=== PATIENT | female | born 1960 | race Caucasian/White ===

== ENCOUNTER → 2017-10-23 16:20 | Outpatient (CLI) | payer OTHER, SELFPAY ==
--- NOTE | 2017-10-23 16:34 | BI_ITS ---
MAMMOGRAPHY - BILATERAL SCREENING 3-D VIELKA SYNTHESIS REASON FOR EXAM: Female, 57 years old. Bilateral Screening 3-D tomosynthesis PERTINENT HISTORY: Hormone replacement therapy.. TECHNIQUE: 2-D mammograms and 3-D Vielka synthesis of the breast (s) were performed. CAD was performed. COMPARISON: August 13, 2015, May 17, 2013 FINDINGS: The breast composition is almost entirely fat. Scattered benign calcifications are seen. No dense spiculated masses or suspicious microcalcifications are identified. No architectural distortion is identified. There is no skin thickening or retraction. There has been no significant change since the prior study. BI/SCREENING MAMM (CAD), BILAT IMPRESSION: No mammographic signs of malignancy. Routine yearly mammograms recommended. ASSESSMENT CATEGORY: BIRADS Category 1: Negative. A letter regarding these results will be sent to the patient by the facility within 30 days. FOLLOW UP RECOMMENDATION: Yearly follow up mammogram recommended. (A) Approximately 10% of breast cancers are not detected by mammography. A normal mammogram should not delay biopsy of a clinically suspicious abnormality. Electronically Signed: Adelso Lopez MD at 13:38 EDT , Service support ,
== END ==
PROVIDERS: Family Provider Family Medicine; PCP Family Medicine; Visit Provider Obstetrics & Gynecology
DX: Z12.31 Encounter for screening mammogram for malignant neoplasm of breast (principal)
CPT/HCPCS: 77063; 77067

== ENCOUNTER → 2017-12-28 10:52 | Outpatient (CLI) | payer OTHER, SELFPAY ==
[2017-12-28 13:21] LABS: Estradiol 19.8 pg/mL
[2018-01-05 08:06] LABS: HPV Reflexed? NOT INDICATED
== END ==
PROVIDERS: Visit Provider Obstetrics & Gynecology
DX: Z78.0 Asymptomatic menopausal state (principal); Z12.4 Encounter for screening for malignant neoplasm of cervix
CPT/HCPCS: 36415; 82670; 88175; G0145

== ENCOUNTER → 2018-10-25 | Outpatient (CLI) | payer OTHER, SELFPAY ==
--- NOTE | 2018-10-25 15:30 | BI_ITS ---
MAMMOGRAPHY - BILATERAL SCREENING REASON FOR EXAM: Female, 58 years old. Routine annual screening examination. PERTINENT HISTORY: Non-contributory. TECHNIQUE: Digital bilateral breast vielka (3D mammographic acquisition) in the CC and MLO projections. 2-D mediolateral oblique (MLO) and craniocaudad (CC) views of both breasts were obtained. CAD: Full Field Digital Mammography with Computer Added Detection was performed. COMPARISON: Comparison is made with prior study dated October 23, 2017 and September 14, 2016. FINDINGS: Breast Composition: The breasts are almost entirely fatty. There are no dominant masses or suspicious calcifications. No other significant abnormalities are identified. There has been no significant change since the prior study. BI/SCREEN MAMM (CAD) W/VIELKA BILAT IMPRESSION: Stable bilateral screening mammogram. Yearly follow-up mammogram recommended. (A) ASSESSMENT CATEGORY: BIRADS Category 1: Negative. A letter regarding these results will be sent to the patient by the facility within 30 days. Approximately 10% of breast cancers are not detected by mammography. A normal mammogram should not delay biopsy of a clinically suspicious abnormality. [id number] Electronically Signed: Kurtis Ruff, at 9:04 EDT , Service support ,
== END | disposition home or self-care (01) ==
PROVIDERS: Family Provider Family Medicine; PCP Family Medicine; Referring Provider Obstetrics & Gynecology; Visit Provider Obstetrics & Gynecology
DX: Z12.31 Encounter for screening mammogram for malignant neoplasm of breast (principal)
CPT/HCPCS: 77063; 77067

== ENCOUNTER → 2018-12-31 06:29 | Outpatient (CLI) | payer OTHER, SELFPAY ==
[2018-12-31 07:44] LABS: AST(SGOT) 43 U/L (15-37); Alanine Aminotransfer ALT/SGPT 44 U/L (13-56); Albumin, Serum 3.6 g/dL (3.2-5.0); Alkaline Phosphatase 97 U/L (45-117); Bilirubin, Direct < 0.05 mg/dL (0.00-0.30); Cholesterol 284 mg/dL (200); Globulin 3.7 g/dL (2.2-4.2); High Density Lipoprotein 39 mg/dL; Protein, Total 7.3 g/dL (6.4-8.2); Triglycerides 774 mg/dL
== END ==
PROVIDERS: Family Provider Family Medicine; PCP Family Medicine; Referring Provider Family Medicine; Visit Provider Family Medicine
DX: E78.5 Hyperlipidemia, unspecified (principal); R74.8 Abnormal levels of other serum enzymes
CPT/HCPCS: 36415; 80061; 80076

== ENCOUNTER → 2019-01-10 07:54 | Outpatient (CLI) | payer OTHER, SELFPAY ==
[2019-01-10 09:56] LABS: Cholesterol 281 mg/dL (200); High Density Lipoprotein 64 mg/dL; Triglycerides 159 mg/dL; Very Low Density Lipoprotein 32 mg/dL (5-40)
== END ==
PROVIDERS: Family Provider Family Medicine; PCP Family Medicine; Referring Provider Family Medicine; Visit Provider Family Medicine
DX: E78.5 Hyperlipidemia, unspecified (principal)
CPT/HCPCS: 36415; 80061

== ENCOUNTER → 2019-11-22 08:17 | Outpatient (CLI) | payer SELFPAY ==
[2019-04-18 08:45] VITALS: BMI 26.6
[2019-11-22 10:44] LABS: Cholesterol 218 mg/dL (200); High Density Lipoprotein 57 mg/dL; Triglycerides 199 mg/dL; Very Low Density Lipoprotein 40 mg/dL (5-40)
== END ==
PROVIDERS: PCP Family Medicine; Referring Provider Family Medicine; Visit Provider Family Medicine
DX: E78.5 Hyperlipidemia, unspecified (principal)
CPT/HCPCS: 36415; 80061

== ENCOUNTER → 2020-05-07 07:12 | Outpatient (CLI) | payer SELFPAY ==
[2019-04-18 08:45] VITALS: BMI 26.6
[2020-05-07 10:56] LABS: ALB/GLOB Ratio 1.2 RATIO (0.9-2.4); AST(SGOT) 34 U/L (15-37); Alanine Aminotransfer ALT/SGPT 71 U/L (13-56); Albumin, Serum 4.1 g/dL (3.2-5.0); Alkaline Phosphatase 105 U/L (45-117); Anion Gap 6 (5-15); BUN 11 mg/dL (7-18); BUN/Creat Ratio 14.9 RATIO (10-20); Chloride 107 mmol/L (98-107); Cholesterol 190 mg/dL (200); Creatinine, Serum 0.74 mg/dL (0.55-1.02); EST Glomerular Filtration Rate 86 mL/min (>60); Est Glom Filt Rate - Afr Amer 104 mL/min (>60); Globulin 3.3 g/dL (2.2-4.2); Glucose 93 mg/dL (74-106); High Density Lipoprotein 59 mg/dL; Protein, Total 7.4 g/dL (6.4-8.2); Sodium Level 142 mmol/L (136-145); Triglycerides 167 mg/dL; Very Low Density Lipoprotein 33 mg/dL (5-40)
== END ==
PROVIDERS: PCP Family Medicine; Referring Provider Family Medicine; Visit Provider Family Medicine
DX: I10 Essential (primary) hypertension (principal)
CPT/HCPCS: 36415; 80053; 80061

== ENCOUNTER → 2020-08-12 06:58 | Outpatient (CLI) | payer SELFPAY ==
[2019-04-18 08:45] VITALS: BMI 26.6
--- NOTE | 2020-08-12 07:02 | BI_ITS ---
MAMMOGRAPHY - BILATERAL SCREENING REASON FOR EXAM: Female, 60 years old. Routine annual screening examination. PERTINENT HISTORY: Non-contributory. TECHNIQUE: Digital bilateral breast vielka (3D mammographic acquisition) in the CC and MLO projections. 2-D mediolateral oblique (MLO) and craniocaudad (CC) views of both breasts were obtained. CAD: Full Field Digital Mammography with Computer Added Detection was performed. COMPARISON: Comparison is made with prior examination dated 10/25/2018 and 10/23/2017. FINDINGS: Breast Composition: The breasts are almost entirely fatty. There are no dominant masses or suspicious calcifications. No other significant abnormalities are identified. There has been no significant change since the prior study. BI/SCRN MAMM (CAD)W/VIELKA BILAT IMPRESSION: Stable bilateral screening mammogram. Yearly follow-up mammogram recommended. (A) ASSESSMENT CATEGORY: BIRADS Category 1: Negative. A letter regarding these results will be sent to the patient by the facility within 30 days. Approximately 10% of breast cancers are not detected by mammography. A normal mammogram should not delay biopsy of a clinically suspicious abnormality. [id number] Electronically Signed: Kurtis Ruff MD at 8:30 EDT , Service support ,
== END ==
PROVIDERS: PCP Family Medicine; Referring Provider Obstetrics & Gynecology; Visit Provider Obstetrics & Gynecology
DX: Z12.31 Encounter for screening mammogram for malignant neoplasm of breast (principal)
CPT/HCPCS: 77063; 77067

== ENCOUNTER → 2021-08-17 | Outpatient (CLI) | payer SELFPAY ==
--- NOTE | 2021-08-17 08:09 | BI_ITS ---
MAMMOGRAPHY - BILATERAL SCREENING REASON FOR EXAM: Female, 61 years old. Routine annual screening examination. PERTINENT HISTORY: Non-contributory. TECHNIQUE: Digital bilateral breast vielka (3D mammographic acquisition) in the CC and MLO projections. 2-D mediolateral oblique (MLO) and craniocaudad (CC) views of both breasts were obtained. CAD: Full Field Digital Mammography with Computer Added Detection was performed. COMPARISON: Comparison is made with prior study 08/12/2020 and 10/25/2018. FINDINGS: Breast Composition: The breasts are almost entirely fatty. There are no dominant masses or suspicious calcifications. No other significant abnormalities are identified. There has been no significant change since the prior study. BI/SCRN MAMM (CAD)W/VIELKA BILAT IMPRESSION: Stable bilateral screening mammogram. Yearly follow-up mammogram recommended. (A) ASSESSMENT CATEGORY: BIRADS Category 1: Negative. A letter regarding these results will be sent to the patient by the facility within 30 days. Approximately 10% of breast cancers are not detected by mammography. A normal mammogram should not delay biopsy of a clinically suspicious abnormality. [id number] Electronically Signed: Kurtis Ruff MD at 9:13 EDT ,
== END | disposition home or self-care (01) ==
LOC: OPBI 08:05
PROVIDERS: PCP Family Medicine; Visit Provider Nurse Practitioner Women's Health
DX: Z12.31 Encounter for screening mammogram for malignant neoplasm of breast (principal)
CPT/HCPCS: 77063; 77067

== ENCOUNTER → 2022-06-16 | Outpatient (CLI) | payer SELFPAY ==
[2022-06-16 10:14] LABS: Absolute Lymphocyte Count 2.59 X10^3/uL (0.83-4.51); Absolute Neutrophil Count 3.2 X10^3/uL (2.0-7.7); Basophil# 0.06 X10^3/uL; Basophil% 0.9 % (0-1); Eosinophil# 0.23 X10^3/uL; Eosinophils% 3.5 % (0-5); Hemoglobin 15.1 g/dL (12.0-15.0); Lymphocyte # 2.59 X10^3/ul (0.83-4.51); Lymphocyte % 39.8 % (19-41); Mean Corp Hgb Conc 32.8 g/dL (32-36); Mean Corpuscular Hgb 28.7 pg (27.0-32.0); Mean Corpuscular Volume 87.5 fL (81-99); Mean Platelet Vol. 10.9 fl (6.2-12.0); Monocyte# 0.43 X10^3/uL; Monocyte% 6.6 % (0-10); NRBC Flagged by Analyzer 0 % (0-5); Neutrophil # 3.18 X10^3/uL (2.7-7.7); Platelet Count 270 K/mm3 (150-450); RBC Distribution Width CV 12.3 % (11.6-14.6); RBC Distribution Width SD 39.9 fl (35.1-43.9); Red Blood Count 5.26 M/mm3 (4.2-5.4); White Blood Count 6.5 K/mm3 (4.4-11.0)
[2022-06-16 10:34] LABS: Microalbumin,Random Urine 29.2 mg/L (NO RANGE EST.)
[2022-06-16 10:39] LABS: ALB/GLOB Ratio 1.1 RATIO (0.9-2.4); AST(SGOT) 37 U/L (15-37); Alanine Aminotransfer ALT/SGPT 86 U/L (13-56); Albumin, Serum 3.9 g/dL (3.2-5.0); Alkaline Phosphatase 109 U/L (45-117); Anion Gap 6 (5-15); BUN 12 mg/dL (7-18); Calcium,Total 9.3 mg/dL (8.5-10.1); Chloride 105 mmol/L (98-107); Cholesterol 172 mg/dL (200); EST Glomerular Filtration Rate 90 mL/min (>60); Est Glom Filt Rate - Afr Amer 109 mL/min (>60); Globulin 3.7 g/dL (2.2-4.2); Glucose 99 mg/dL (74-106); High Density Lipoprotein 58 mg/dL; Potassium 3.8 mmol/L (3.5-5.1); Protein, Total 7.6 g/dL (6.4-8.2); Sodium Level 141 mmol/L (136-145); Triglycerides 137 mg/dL; Very Low Density Lipoprotein 27 mg/dL (5-40)
== END | disposition home or self-care (01) ==
PROVIDERS: PCP Family Medicine; Referring Provider Family Medicine; Visit Provider Family Medicine
DX: I10 Essential (primary) hypertension (principal); E78.5 Hyperlipidemia, unspecified
CPT/HCPCS: 36415; 80053; 80061; 82043; 85025

== ENCOUNTER → 2022-08-22 | Outpatient (CLI) | payer SELFPAY ==
--- NOTE | 2022-08-22 07:40 | BI_ITS ---
MAMMOGRAPHY - BILATERAL SCREENING REASON FOR EXAM: Female, 62 years old. Routine annual screening examination. PERTINENT HISTORY: Non-contributory. TECHNIQUE: Digital bilateral breast vielka (3D mammographic acquisition) in the CC and MLO projections. 2-D mediolateral oblique (MLO) and craniocaudad (CC) views of both breasts were obtained. CAD: Full Field Digital Mammography with Computer Added Detection was performed. COMPARISON: Comparison is made with prior study dated August 17, 2021 and August 12, 2020. FINDINGS: Breast Composition: The breasts are almost entirely fatty. There are no dominant masses or suspicious calcifications. No other significant abnormalities are identified. There has been no significant change since the prior study. BI/SCRN MAMM (CAD)W/VIELKA BILAT IMPRESSION: Stable bilateral screening mammogram. Yearly follow-up mammogram recommended. (A) ASSESSMENT CATEGORY: BIRADS Category 1: Negative. A letter regarding these results will be sent to the patient by the facility within 30 days. Approximately 10% of breast cancers are not detected by mammography. A normal mammogram should not delay biopsy of a clinically suspicious abnormality. [id number] Electronically Signed: Kurtis Ruff MD at 9:35 EDT ,
== END | disposition home or self-care (01) ==
LOC: OPBI 07:34
PROVIDERS: PCP Family Medicine; Referring Provider Nurse Practitioner Women's Health; Visit Provider Nurse Practitioner Women's Health
DX: Z12.31 Encounter for screening mammogram for malignant neoplasm of breast (principal)
CPT/HCPCS: 77063; 77067

== ENCOUNTER → 2023-09-12 | Outpatient (CLI) | payer SELFPAY ==
--- NOTE | 2023-09-12 07:29 | BI_ITS ---
MAMMOGRAPHY - BILATERAL SCREENING REASON FOR EXAM: Female, 63 years old. Routine annual screening examination. PERTINENT HISTORY: Non-contributory. TECHNIQUE: Digital bilateral breast vielka (3D mammographic acquisition) in the CC and MLO projections. 2-D mediolateral oblique (MLO) and craniocaudad (CC) views of both breasts were obtained. CAD: Full Field Digital Mammography with Computer Added Detection was performed. COMPARISON: Comparison is made with prior study dated August 22, 2022 and August 17, 2021. FINDINGS: Breast Composition: The breasts are almost entirely fatty. There are no dominant masses or suspicious calcifications. No other significant abnormalities are identified. There has been no significant change since the prior study. BI/SCRN MAMM (CAD)W/VIELKA BILAT IMPRESSION: Stable bilateral screening mammogram. Yearly follow-up mammogram recommended. (A) ASSESSMENT CATEGORY: BIRADS Category 1: Negative. A letter regarding these results will be sent to the patient by the facility within 30 days. Approximately 10% of breast cancers are not detected by mammography. A normal mammogram should not delay biopsy of a clinically suspicious abnormality. [id number] Electronically Signed: Kurtis Ruff MD at 8:25 EDT ,
== END | disposition home or self-care (01) ==
LOC: OPBI 07:26
PROVIDERS: PCP Nurse Practitioner Women's Health; Referring Provider Nurse Practitioner Women's Health; Visit Provider Nurse Practitioner Women's Health
DX: Z12.31 Encounter for screening mammogram for malignant neoplasm of breast (principal)
CPT/HCPCS: 77063; 77067

== ENCOUNTER 2024-06-05 09:36 | Day surgery (SDC) | payer SELFPAY ==
[2024-06-05] VITALS (7 sets, daily range): BP systolic 95–135; BP diastolic 59–80; PULSE 66–97; RESP 16–20; TEMP 36.1–37.1; O2SAT 93–98; BMI 29.0
--- NOTE | 2024-06-05 10:07 | CON.PCM.GI_ITS ---
HPI Consult Data Date of Consult: 06/05/24 HPI Narrative Reason for Consultation: Screening colonoscopy HPI Narrative: FLORENCIO REZA, is a 64 F who presents for screening colonoscopy. She had a colonoscopy back in 2018 that a small benign polyp that was removed. She has not a problem with her bowels. She denies any chest pain or shortness of breath. Overall she is in very good health. FOR[facility]LY [facility], LATER [facility] Medical History Wears contact lenses Cancer High cholesterol Gastric reflux Non-smoker PONV (postoperative nausea and vomiting) Family history of rectal cancer Hx of colonic polyp Ovarian cyst, bilateral Hypertension Hyperlipidemia Home Medications ?Medication ?Instructions ?Recorded ?Last Taken ?Type lisinopril 20 mg tablet 20 mg PO BID 03/21/17 History amlodipine 5 mg tablet 10 mg PO DAILY 04/18/19 Unkn own History ascorbic acid (vitamin C) 500 mg 500 mg PO DAILY 08/22 Unknown History capsule coenzyme Q10 75 mg capsule (Ultra 75 mg PO DAILY 08/22 Unknown History CoQ10) mecobalamin (vitamin B12) 1,000 1,000 mcg PO QDAY 03/20 09/11 Unknown History mcg chewable tablet Allergy/AdvReac Type Severity Reaction Status Date / Time Opioids - Morphine Analogues AdvReac Vomiting Verified 06/04/24 10:42 (narcotics) Family History Mother Hypertension Hyperlipidemia Rectal cancer Father Hypertension Hyperlipidemia Surgical History Hx of colonoscopy S/P cholecystectomy S/P bilateral oophorectomy S/P abdominal hysterectomy S/P partial glossectomy S/P laparoscopy Social History household members: spouse current occupational status: retired Smoking Status: Never smoker alcohol intake: never substance use type: does not use caffeine: Yes what type of physical activity do you participate in: walking frequency: 5-6 times per week seatbelt use: always do you feel safe at home: Yes additional social history: - 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 ROS Constitutional Constitutional: Denies fatigue, fever(s), poor appetite, weight gain or weight loss Gastrointestinal Gastrointestinal: Denies belching, bloating, change in bowel habits, change in stool character, chewing difficulty, coffee ground emesis, constipation, cramping, diarrhea, dyspepsia, dysphagia, early satiety, excessive flatus, fecal incontinence, heartburn, hematemesis, hematochezia, hemorrhoids, loose stools, melena, nausea, odynophagia, rectal bleeding, tenesmus, vomiting or weight changes Physical Exam Const alert, oriented x3, no apparent distress and healthy appearing General Appearance: cooperative GI normal to inspection, nondistended, normoactive bowel sounds, soft to palpation, non-tender and non-distended Percussion: normal to percussion Rectal Exam: deferred Assessment & Plan Assessment/Plan (1) Encounter for screening for malignant neoplasm of colon: PLAN: She was explained alternatives, risk, benefits including not withstanding bleeding, infection, sepsis, perforation, need emergent surgery and . She will be ASA of 3.
--- NOTE | 2024-06-05 10:31 | PRE.ANES_ITS ---
ASA Classification* ASA Classification ASA Classification: 2 Assessment & Plan Anesthesia* Anesthesia Assessment Anesthesia Assessment: Discussed sedation and/or anesthesia options, risks, benefits, and alternatives with patient/parents/legal guardian/POA. Questions invited. The patient/parents/legal guardian/POA seems to understand and agrees to proceed with anesthesia plan. Reviewed the physical assessment, medical history, allergy history and patient home medications list prior to surgery/procedure/anesthetic and documented any changes. Performed airway and anesthesia risk assessments. Anesthesia Type Anesthesia Type: MAC History Source History Obtained from:: Patient and Chart Anesthesia Focused Assessment* Temperature: 98.7 F Pulse Rate: 97 Blood Pressure: 135/80 Respiratory Rate: 17 Pulse Ox: 98 Oxygen Delivery Method: Room Air Airway Assessment Mouth opens: >3 cm Mallampati Score: I Teeth Condition: Caps/Crowns (Patient has couple caps. They are tight.) Neck Range of motion (ROM): Full ROM Focused Labs Anesthesia Preop lab: CBC WBC 6.5 K/mm3 (4.4-11.0) 06/16/22 09:08 06/16/22 RBC 5.26 M/mm3 (4.2-5.4) 06/16/22 09:08 06/16/22 Hgb 15.1 g/dL (12.0-15.0) H 06/16/22 09:08 3 Hct 46.0 % (37-47) 06/16/22 09:08 06/16/22 Plt Count 270 K/mm3 (150-450) 06/16/22 09:08 06/16/22 CHEMISTRY Potassium 3.8 mmol/L (3.5-5.1) 06/16/22 09:08 06/16/22 Sodium 141 mmol/L (136-145) 06/16/22 09:08 06/16/22 Phosphorus 2.8 mg/dL (2.5-4.9) 10/02/18 06:14 10/02/18 BUN 12 mg/dL (7-18) 06/16/22 09:08 06/16/22 Creatinine 0.70 mg/dL (0.55-1.02) 06/16/22 09:08 06/16/22 Glucose 99 mg/dL (74-106) 06/16/22 09:08 06/16/22 COAG Pre-Assessment Diagnosis/Proposed Procedure Planned Operative Procedure(s): CSCOPE Anesthesia History 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 When Was Last Pacemaker Check QUESTION #4 FULL TEXT: You/Your Family Experience fever (hyperthermia) with Anesthesia Last Oral Intake Last Oral intake: Last Oral Intake NPO since 06:00 06/05/24 10:17 Meds taken in AM with sips of Yes 06/05/24 10:17 water? Meds patient instructed to take am of surgery Any additional information?: Yes NPO since: 07:00 (Patient has several water with a.m. meds) Meds taken in AM with sips of water?: Yes PONV PONV - composite technician: PONV - composite technician Female Yes 06/04/24 10:43 HX of Motion Sickness Yes 06/04/24 10:43 HX of N/V After Surgery Yes 06/04/24 10:43 Non-Smoker Yes 06/04/24 10:43 Duration of Surgery greater No 06/04/24 10:43 than 60 minutes Number of Risk Factors 4 06/04/24 10:43 PONV Score Severe Risk 06/04/24 10:43 Height & Weight Height & Weight: Anesthesia: Height & Weight Height 5 ft 5 in 06/05/24 10:17 Weight: 79 kg 06/05/24 10:17 Body Mass Index (BMI) 29.0 06/05/24 10:17 Respiratory Assessment Respiratory Assessment - composite technician: Respiratory Tract Infection Hx - composite technician Hx Respiratory Tract Infection No 06/04/24 10:43 STOP Sleep Apnea STOP Sleep Apnea - composite technician: STOP Sleep Apnea - composite technician Hx Hypertension Yes: CONTROLLED WITH MED 06/04/24 10:43 Hx Sleep Apnea No 06/04/24 10:43 CPAP BIPAP Do you snore loudly (louder No 06/04/24 10:43 than talking or can be heard Do you often feel tired/ No 06/04/24 10:43 fatigued/ sleepy during daytime? Has anyone observed you stop No 06/04/24 10:43 breathing during sleep? STOP Results Negative 06/04/24 10:43 QUESTION #5 FULL TEXT : Do you snore loudly (louder than talking or can be heard through closed doors)? 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 Specify any problems Hx of Preganancy in last 3 N/A 06/04/24 10:43 Months Nurse Filling Out Transfusion NBUCHER 06/04/24 10:43 & Questions: Date: 06/04/24 06/04/24 10:43 Time: 10:45 06/04/24 10:43 Patient unable to answer at this time (ie. confused, unrespo /Reproduction History /Reproductive History - composite technician: /Reproductive Hx- composite technician Hx Now No 06/04/24 10:43 Gestational Age (in weeks): EDC: Hx Hx Para Hx Section SAB No 06/04/24 10:43 PFSH Medical History Wears contact lenses Cancer High cholesterol Gastric reflux Non-smoker PONV (postoperative nausea and vomiting) Family history of rectal cancer Hx of colonic polyp Ovarian cyst, bilateral Hypertension Hyperlipidemia Home Medications ?Medication ?Instructions ?Recorded ?Last Taken ?Type lisinopril 20 mg tablet 20 mg PO BID 03/21/17 History amlodipine 5 mg tablet 10 mg PO DAILY 04/18/1905/18 History ascorbic acid (vitamin C) 500 mg 500 mg PO DAILY 08/2206/04/24 History capsule coenzyme Q10 75 mg capsule (Ultra 75 mg PO DAILY 08/2206/04/24 History CoQ10) mecobalamin (vitamin B12) 1,000 1,000 mcg PO QDAY 03/2006/04/24 History mcg chewable tablet Allergy/AdvReac Type Severity Reaction Status Date / Time Opioids - Morphine Analogues AdvReac Vomiting Verified 06/05/24 10:16 (narcotics) Family History Mother Hypertension Hyperlipidemia Rectal cancer Father Hypertension Hyperlipidemia Surgical History Hx of colonoscopy S/P cholecystectomy S/P bilateral oophorectomy S/P abdominal hysterectomy S/P partial glossectomy S/P laparoscopy Social History household members: spouse current occupational status: retired Smoking Status: Never smoker alcohol intake: never substance use type: does not use caffeine: Yes what type of physical activity do you participate in: walking frequency: 5-6 times per week seatbelt use: always do you feel safe at home: Yes additional social history: - 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
--- NOTE | 2024-06-05 10:39 | PCM.POST.ANE ---
Anesthesia: Postop Eval I Current Vital Signs Temperature: 97.1 F Pulse Rate: 66 Blood Pressure: 95/59 Respiratory Rate: 20 Pulse Ox: 95 Oxygen Delivery Method: Room Air Assessment Airway patent: Yes Spontaneous unlabored respirations: Yes Mental status: Asleep nausea: No Vomiting: No Anesthesia Complication: No Fluid Hydration Crystalloid volume administer (ml): 30 Total IV fluid infused: 30 Progress Note Anesthesia document: Postop Eval 1 completed: Yes
--- NOTE | 2024-06-05 10:45 | COLBX_PTH ---
PATIENT: FLORENCIO REZA LOC: EN U#:[id number] AGE/SX: 64/F ROOM: RE06/05/[address]: Dr. Deo Schmidt DO : 1960 BED: DIS: 06/05/2024 SPEC #: [id number] RECD: 06/05/24 13:13 STATUS: MARILU REEly #: [id number] ZHOU: 06/05/24 10:[address]: Deo Schmidt DEPT: SURGICAL PATHOLOGY RECD BY: Ziyad Tay ENTERED: 06/05/24 13:14 SP TYPE: COLON BX OTHR DR: Joy Eid MD Tissues: A - COLON BIOPSY Procedures: Surgery Specimen Level IV HEADER OPERATION: Colonoscopy, polypectomy PRE-OP DIAGNOSIS: Screening TISSUE SUBMITTED: A- Hepatic flexure polyp MICROSCOPIC DIAGNOSIS Hepatic flexure polyp, biopsy:Colonic mucosa without evidence of dysplasiaSudeep He MD, 06/14/2024 MICROSCOPIC DESCRIPTION Slides are reviewed. GROSS DESCRIPTION A. Received in fixative is one container labeled with the patient's name and designated Hepatic flexure polyp. The specimen consists of multiple irregular fragments of light pereira soft tissue that in aggregate measure 1.4 x 0.2 x 0.2 cm. The specimen is totally submitted in one cassette. MS/mr 06/05/2024 CPT:61918 , TC:4
--- NOTE | 2024-06-05 11:16 | OP.COLON_ITS ---
Patient Name: Michelle Hagan Procedure Date: 06/05/2024 10:36 AM Date of : 1960 Age: 64 Procedure: Colonoscopy Indications: Screening for colorectal malignant neoplasm Providers: Deo Schmidt DO Referring MD: Joy Eid Md Medicines: Monitored Anesthesia Care Patient Profile: This is a 64 year old female. Refer to note in patient chart for documentation of history and physical. Last Colonoscopy: several years ago. Complications: No immediate complications. Procedure: Pre-Anesthesia Assessment: - Prior to the procedure, a History and Physical was performed, and patient medications and allergies were reviewed. The patient is competent. The risks and benefits of the procedure and the sedation options and risks were discussed with the patient. All questions were answered and informed consent was obtained. Patient identification and proposed procedure were verified by the physician in the pre-procedure area. Mental Status Examination: alert and oriented. Airway Examination: normal oropharyngeal airway and neck mobility. Respiratory Examination: clear to auscultation. CV Examination: normal. Prophylactic Antibiotics: The patient requires prophylactic antibiotics. Prior Anticoagulants: The patient has taken no anticoagulant or antiplatelet agents. ASA Grade Assessment: II - A patient with mild systemic disease. After reviewing the risks and benefits, the patient was deemed in satisfactory condition to undergo the procedure. The anesthesia plan was to use monitored anesthesia care (MAC). Immediately prior to administration of medications, the patient was re-assessed for adequacy to receive sedatives. The heart rate, respiratory rate, oxygen saturations, blood pressure, adequacy of pulmonary ventilation, and response to care were monitored throughout the procedure. The physical status of the patient was re-assessed after the procedure. After I obtained informed consent, the scope was passed under direct vision. Throughout the procedure, the patient's blood pressure, pulse, and oxygen saturations were monitored continuously. The pediatric colonoscope was introduced through the anus and advanced to the cecum, identified by appendiceal orifice and ileocecal valve. The colonoscopy was performed without difficulty. The patient tolerated the procedure well. The quality of the bowel preparation was adequate. The ileocecal valve, appendiceal orifice, and rectum were photographed. Scope In: 10:47:27 AM Scope Withdrawal Time 0 hours 11 minutes 45 seconds Scope Out: 11:09:45 AM Total Procedure Duration Time 0 hours 22 minutes 18 seconds Findings: The perianal and digital rectal examinations were normal. An 8 mm polyp was found in the hepatic flexure. The polyp was sessile. The polyp was removed with a hot snare. Resection and retrieval were complete. Verification of patient identification for the specimen was done. Estimated blood loss was minimal. Multiple small-mouthed diverticula were found in the recto-sigmoid colon, sigmoid colon and descending colon. There was no evidence of diverticular bleeding. The exam was otherwise without abnormality on direct and retroflexion views. Impression: - One 8 mm polyp at the hepatic flexure, removed with a hot snare. Resected and retrieved. - Moderate diverticulosis in the recto-sigmoid colon, in the sigmoid colon and in the descending colon. There was no evidence of diverticular bleeding. - The examination was otherwise normal on direct and retroflexion views. Recommendation: - Discharge patient to home. - Resume previous diet. - Continue present medications. - Await pathology results. - Repeat colonoscopy in 5 years for surveillance. Procedure Code(s): --- Professional --- 39525, Colonoscopy, flexible; with removal of tumor(s), polyp(s), or other lesion(s) by snare technique CPT copyright 2021 [employer]. All rights reserved. The codes documented in this report are preliminary and upon label coder review may be revised to meet current compliance requirements. Deo Schmidt DO 06/05/2024 11:16:03 AM This report has been signed electronically. Number of Addenda: 0 Note Initiated On: 06/05/2024 10:36 AM
--- NOTE | 2024-06-05 11:16 | OP.CCLET_ITS ---
06/05/2024 Joy Eid Md Re : Colonoscopy procedure for Michelle Eid This procedure was performed on Wednesday, June 05, 2024. My impressions and recommendations are as follows: Impressions : - One 8 mm polyp at the hepatic flexure, removed with a hot snare. Resected and retrieved. - Moderate diverticulosis in the recto-sigmoid colon, in the sigmoid colon and in the descending colon. There was no evidence of diverticular bleeding. - The examination was otherwise normal on direct and retroflexion views. Recommendations : - Discharge patient to home. - Resume previous diet. - Continue present medications. - Await pathology results. - Repeat colonoscopy in 5 years for surveillance. My findings are described in the full procedure note, which is enclosed. If I can be of further assistance, please feel free to contact me at . Sincerely, Deo Schmidt, 06/05/2024 11:16:03 AM This report has been signed electronically.
--- NOTE | 2024-06-05 14:15 | POSTOPAN2_ITS ---
Anesthesia Postop Eval I Sum Postop Eval Completion status Anesthesia document: Postop Eval 1 completed: Yes Anesthesia Postop Eval I Summary Anesthesia Postop Eval I Summary: Anesthesia Postop Eval I: Assessment Summary Airway patent Yes 06/05/24 11:16 [email or web address] Spontaneous unlabored Yes 06/05/24 11:16 [email or web address] respirations Mental status Asleep 06/05/24 11:16 [email or web address] nausea No 06/05/24 11:16 [email or web address] Vomiting No 06/05/24 11:16 [email or web address] Anesthesia Postop Eval I: Fluid Summary Crystalloid volume administer 30 06/05/24 11:16 [email or web address] (ml) Colloids volume administered ( ml) Blood Product volume administered (ml) Total IV fluid infused 30 06/05/24 11:16 [email or web address] Anesthesia Postop Eval I: Summary Notes Anesthesia Complication No 06/05/24 11:16 [email or web address] Anesthesia Complication Comment: Post-operative progress note Anesthesia: Postop Eval II Evaluation Mental status: Awake Pain Level: 0 nausea: No Vomiting: No
--- NOTE | 2024-06-05 14:15 | PCM.POSTANE2 ---
Anesthesia Postop Eval I Sum Postop Eval Completion status Anesthesia document: Postop Eval 1 completed: Yes Anesthesia Postop Eval I Summary Anesthesia Postop Eval I Summary: Anesthesia Postop Eval I: Assessment Summary Airway patent Yes 06/05/24 11:16 [email or web address] [email or web address] Spontaneous unlabored Yes 06/05/24 11:16 [email or web address] [email or web address] respirations Mental status Asleep 06/05/24 11:16 [email or web address] [email or web address] nausea No 06/05/24 11:16 [email or web address] Vomiting No 06/05/24 11:16 [email or web address] Anesthesia Postop Eval I: Fluid Summary Crystalloid volume administer 30 06/05/24 11:16 [email or web address] (ml) Colloids volume administered ( ml) Blood Product volume administered (ml) Total IV fluid infused 30 06/05/24 11:16 [email or web address] Anesthesia Postop Eval I: Summary Notes Anesthesia Complication No 06/05/24 11:16 [email or web address] Anesthesia Complication Comment: Post-operative progress note Anesthesia: Postop Eval II Evaluation Mental status: Awake Pain Level: 0 nausea: No Vomiting: No
== END 2024-06-05 11:58 | disposition home or self-care (01) ==
LOC: EN 09:37 → AC 09:45
PROVIDERS: PCP Family Medicine; Referring Provider Family Medicine; Visit Provider Internal Medicine Gastroenterology
PROC: 0DJD8ZZ Inspection of Lower Intestinal Tract, Via Natural or Artificial Opening Endoscopic (ICD-10-PCS; CPT 45378; principal; 2024-06-05 10:40)
DX: Z12.11 Encounter for screening for malignant neoplasm of colon (principal); K57.30 Diverticulosis of large intestine without perforation or abscess without bleeding; I10 Essential (primary) hypertension; K63.5 Polyp of colon; K21.9 Gastro-esophageal reflux disease without esophagitis; E78.00 Pure hypercholesterolemia, unspecified; Z86.0100 Personal history of colon polyps, unspecified; Z80.0 Family history of malignant neoplasm of digestive organs
CPT/HCPCS: 45385; 88305; A4216; J2405

== ENCOUNTER → 2024-08-07 | Outpatient (CLI) | payer SELFPAY ==
[2024-08-07 10:32] LABS: Absolute Lymphocyte Count 2.46 X10^3/uL (0.83-4.51); Absolute Neutrophil Count 3.4 X10^3/uL (2.0-7.7); Basophil# 0.06 X10^3/uL; Basophil% 0.9 % (0-1); Eosinophil# 0.11 X10^3/uL; Eosinophils% 1.7 % (0-5); Hematocrit 46.1 % (37-47); Hemoglobin 15.7 g/dL (12.0-15.0); Lymphocyte # 2.46 X10^3/ul (0.83-4.51); Mean Corp Hgb Conc 34.1 g/dL (32-36); Mean Corpuscular Hgb 29.2 pg (27.0-32.0); Mean Corpuscular Volume 85.7 fL (81-99); Mean Platelet Vol. 11.2 fl (6.2-12.0); Monocyte# 0.41 X10^3/uL; Monocyte% 6.3 % (0-10); NRBC Flagged by Analyzer 0 % (0-5); Neutrophil # 3.42 X10^3/uL (2.7-7.7); Neutrophil % 52.9 % (47-70); Platelet Count 302 K/mm3 (150-450); RBC Distribution Width CV 12.1 % (11.6-14.6); RBC Distribution Width SD 37.8 fl (35.1-43.9); Red Blood Count 5.38 M/mm3 (4.2-5.4); White Blood Count 6.5 K/mm3 (4.4-11.0)
[2024-08-07 11:50] LABS: ALB/GLOB Ratio 1.4 RATIO (0.9-2.4); AST(SGOT) 60 U/L (<=31); Alanine Aminotransfer ALT/SGPT 98 U/L (<=34); Albumin, Serum 4.4 g/dL (3.4-4.8); Alkaline Phosphatase 114 U/L (35-104); Anion Gap 12 (5-15); BUN 14 mg/dL (4-19); Calcium,Total 9.6 mg/dL (7.6-11.0); Carbon Dioxide 25.4 mmol/L (21.0-32.0); Chloride 104 mmol/L (98-108); Cholesterol 238 mg/dL (<=200); EST Glomerular Filtration Rate 98 (>60); Globulin 3.1 g/dL (2.2-4.2); Glucose 103 mg/dL (70-99); High Density Lipoprotein 57 mg/dL; Low Density Lipoprotein Calc. 151 mg/dL; Protein, Total 7.5 g/dL (5.9-8.4); Sodium Level 142 mmol/L (133-145); Total Bilirubin 0.57 mg/dL (0.00-1.30); Triglycerides 149 mg/dL; Very Low Density Lipoprotein 30 mg/dL (5-40); cholesterol:hdl ratio screen 4.15
== END | disposition home or self-care (01) ==
PROVIDERS: PCP Family Medicine; Referring Provider Family Medicine; Visit Provider Family Medicine
DX: I10 Essential (primary) hypertension (principal); E78.5 Hyperlipidemia, unspecified
CPT/HCPCS: 36415; 80053; 80061; 85025

== ENCOUNTER → 2024-09-12 | Outpatient (CLI) | payer SELFPAY ==
--- OUTSIDE RECORDS SUMMARY | 2024-09-12 07:23 | XMS RPT_ITS | CCD ---
Author Organization [facility] Clini[facility]v Care Team Providers Care Review Scheduling Coordinator Name Role Phone Dr. Anurag Verdugo Referring Provider Derek OUTPATIENT DIETITIAN, OUTPATIENT DIETITIAN-C Sarah Attending Provider Dr. Anurag Shah Primary Care Provider Dr. Anurag Shah Referring Provider Derek OUTPATIENT DIETITIAN, OUTPATIENT DIETITIAN-C Sarah Attending Provider 1([facility] )[id number] DO Adina Lee Primary Care Provider [phone] Derek OUTPATIENT DIETITIAN-C, Sarah Primary Care Provider [phone] Lamar Deluna Attending Provider Unavailable Friend Dr. Deo ARNDT Attending Provider Stanton BIRD, Joy Primary Care Provider Joy Eid MD Referring Provider [phone] Deo ARNDT Other Provider [phone] Joy Eid MD Primary Care Provider Dr. Vidal He MD Attending Provider Dr. Vidal He MD Referring Provider Joy Eid MD Attending Provider [phone] Derek OUTPATIENT DIETITIANSarah Attending Unavailable Adina Lee Referring Unavailable Derek OUTPATIENT DIETITIAN, Sarah Primary Care Unavailable Lamar Deluna Attending Unavailable Derek SPRAGUE, Sarah Primary Care Unavailable Vidal He Attending Unavailable Vidal He Referring Unavailable Stanton, Chalon Primary Care Unavailable Stanton, Chalon Primary Care Unavailable Stanton, Chalon Referring Unavailable Deo Schmidt Consulting Unavailable Deo Schmidt Attending Unavailable Stanton, Chalon Primary Care Unavailable Stanton, Chalon Referring Unavailable Friend Deo Attending Unavailable Joy Eid Attending Unavailable Joy Eid Referring Unavailable Joy Eid Primary Care Unavailable Derek OUTPATIENT DIETITIANSarah Primary Care Unavailable Derek OUTPATIENT DIETITIAN, Sarah Attending Unavailable Derek OUTPATIENT DIETITIAN, Sarah Referring Unavailable Allergies Allergy Classification Reported Allergen(s) Allergy Type Date of Onset Reaction(s) Facility (2 sources) Opioids - Morphine Analogues Propensity to adverse reactions 5 Vomiting [facility] (1 source) Opioids - Morphine Analogues Drug allergy (disorder) 5 [facility] Repository Medications Current Medications Medication Drug Class(es) Dates Sig (Normalized) Sig (Original) amLODIPine 5 mg oral tablet (10 sources) Dihydropyridine Calcium Channel Tucker Start: 04-18-2019 take 2 tablets by mouth once daily Amlodipine 5 mg tablet Active 10 mg PO DAILY April 18, 2019 9:31am Start: 04-18-2019 take 10 mg by mouth once daily Amlodipine Active 10 MG PO DAILY April 18, 2019 9:31am Start: 03-21-2017 End: 04-18-2019 take 1 tablet by mouth once daily Amlodipine 5 MG tablet Discontinued 5 mg PO DAILY March 21, 2017 1:00am April 18, 2019 9:31am ascorbic acid 500 mg oral capsule (3 sources) Vitamin C Start: 08-22-2022 take 1 capsule by mouth once daily Ascorbic Acid (Vitamin C) 500 mg capsule Active 500 mg PO DAILY August 22, 2022 12:00am Start: 08-22-2022 Ascorbic Acid (Vitamin C) Active MG PO August 22, 2022 12:00am lisinopril 20 mg oral tablet (5 sources) Angiotensin Converting Enzyme Inhibitor Start: 03-21-2017 take 1 tablet by mouth twice daily Lisinopril 20 MG tablet Active 20 mg PO TWICE A DAY March 21, 2017 1:00am mecobalamin 1 mg chewable tablet (2 sources) Start: 04-04-2024 take 1 tablet by mouth once daily Mecobalamin (Vitamin B12) 1,000 mcg tablet,chewable Active 1000 ug PO daily April 04, 2024 1:00am ubidecarenone 75 mg oral capsule (3 sources) Start: 08-22-2022 Coenzyme Q10 (Ultra Coq10) 75 mg capsule Active 75 mg PO DAILY August 22, 2022 12:00am Completed/Discontinued Medications Medication Drug Class(es) Dates Sig (Normalized) Sig (Original) atorvastatin 40 mg oral tablet (15 sources) HMG-CoA Reductase Inhibitor Start: 08-17-2021 End: 08-22-2022 take 0.2 tablet by mouth every week Atorvastatin 40 mg tablet Discontinued 40 mg PO .2 x q week August 17, 2021 8:38am August 22, 2022 8:19am Start: 08-12-2020 End: 08-17-2021 take 1 tablet by mouth every other day Atorvastatin 40 mg tablet Discontinued 40 mg PO .QOD August 12, 2020 8:07am August 17, 2021 8:38am Start: 04-18-2019 End: 08-12-2020 take 1 tablet by mouth once daily Atorvastatin 40 mg tablet Discontinued 40 mg PO DAILY April 18, 2019 1:00am August 12, 2020 8:08am 84 hr estradiol 0.37691 mg/hr transdermal system (20 sources) Estrogen Start: 08-12-2020 End: 08-17-2021 apply 1 dose transdermal route two times weekly, then apply 1 dose transdermal route once Estradiol 0.025 mg/24 hr patch semiweekly Discontinued 1 NMA TD TWICE A WEEK August 12, 2020 12:00am August 17, 2021 8:38am apply 1 patch for 3 days alternating with 1 patch for 4 days each week Start: 08-12-2020 End: 08-17-2021 apply 1 dose transdermal route two times weekly, then apply 1 dose transdermal route once Estradiol Discontinued 1 PATCH TD TWICE A WEEK August 12, 2020 12:00am August 17, 2021 8:38am apply 1 patch for 3 days alternating with 1 patch for 4 days each week Start: 04-18-2019 End: 08-12-2020 Estradiol 0.0375 mg/24 hr pa tc semiweekly Discontinued 1 NMA TD TWICE A WEEK April 18, 2019 1:00am August 12, 2020 8:15am Start: 04-18-2019 End: 08-12-2020 apply 1 dose transdermal route two times weekly Estradiol Discontinued 1 PATCH TD TWICE A WEEK April 18, 2019 1:00am August 12, 2020 8:15am Start: 03-21-2017 End: 04-18-2019 apply 0.05 mg transdermal route every hour Estradiol 0.05 mg/24 hr patch semiweekly Discontinued 0.05 mg TD .2X/WEEK April 18, 2019 9:46am April 18, 2019 9:51am Problems Problem Classification Problem Date Documented Da te Episodic/Chronic Abdominal pain (5 sources) Abdominal pain; Translations: [Unspecified abdominal pain] 03-23-2017 Episodic Administrative/social admission (6 sources) Patient encounter status; Translations: [Other specified counseling] 08-12-2020 Episodic Anxiety disorders (5 sources) Anxiety; Translations: [Anxiety disorder, unspecified] 08-12-2020 Chronic Disorders of lipid metabolism (5 sources) Hyperlipidemia; Translations: [Hyperlipidemia, unspecified] 04-18-2019 Chronic Essential hypertension (12 sources) Hypertensive disorder; Translations: [Essential (primary) hypertension] Onset: 08-12-2024 08-12-2020 Chronic Comment on above: monitors at home Menopausal disorders (4 sources) Atrophic vaginitis; Translations: [Postmenopausal atrophic vaginitis] 08-22-2022 Chronic Comment on above: considering estradio l cream as sx worsening. Using coconut oil Other screening for suspected conditions (not mental disorders or infectious disease) (3 sources) Encounter for screening for malignant neoplasm of colon; Translations: [Encounter for screening mammogram for malignant neoplasm of breast] Onset: 09-25-2023 Episodic Results Test Name Value Interpretation Reference Range Facility Absolute lymphocyte countOrd ered By: Joy Eid on 08-07-2024 Lymphocytes Auto (Unsp spec) [#/Vol] 2.46 10*3/uL 0.83-4.51 [facility] Absolute neutrophil countOrd ered By: Joy Eid on 08-07-2024 Neutrophils (Bld) [#/Vol] 3.4 10*3/uL 2.0-7.7 [facility] Anion gap in Serum or Plasma Ordered By: Joy Eid on 08-07-2024 Anion gap [Moles/Vol] 12 mmol/L 5-15 [facility] Automated lymphocyte count a s percentage of total leukocytesOrdered By: Joy Eid on 08-07-2024 Lymphocytes/100 WBC Auto (Unsp spec) 38.0 % 19-41 [facility] BUN/creatinine ratioOrdered By: Joy Eid on 08-07-2024 Urea nitrogen/Creatinine [Mass ratio] 20.0 mg/mg 10- [facility] Basophil percentageOrdered B y: Joy Eid on 08-07-2024 Basophils/100 WBC (Bld) 0.9 % 0-1 [facility] Bilirubin, totalOrdered By: [facility] on 08-07-2024 Bilirubin [Mass/Vol] 0.57 mg/dL 0.00-1.30 [facility] CBC W/Diff, Automatedon 07-19-2024 Absolute Lymph 2.46 X10 3/uL Normal 0.83-4.51 [facility] Comment on above: Performed By: #### L 100.0100, L500.4050, L500.4100 #### [facility] [address] [place], [address] Absolute Neut 3.4 X10 3/uL Normal 2.0-7.7 [facility] Comment on above: Performed By: #### L 100.0100, L500.4050, L500.4100 #### [facility] [address] [place], [address] Basophils/100 WBC (Bld) 0.9 % Normal 0-1 [facility] Comment on above: Performed By: #### L 100.0100, L500.4050, L500.4100 #### [facility] [address] [place], [address] Eosinophils/100 WBC (Bld) 1.7 % Normal 0-5 [facility] Comment on above: Performed By: #### L 100.0100, L500.4050, L500.4100 #### [facility] [address] [place], [address] Erythrocyte distribution width (RBC) [Ratio] 12.1 % Normal 11.6-14.6 [facility] Comment on above: Performed By: #### L 100.0100, L500.4050, L500.4100 #### [facility] [address] [place], [address] Hematocrit (Bld) [Volume fraction] 46.1 % Normal 37-47 [facility] Comment on above: Performed By: #### L 100.0100, L500.4050, L500.4100 #### [facility] [address] [place], [address] Hemoglobin (Bld) [Mass/Vol] 15.7 g/dL High 12.0-15.0 [facility] Comment on above: Performed By: #### L 100.0100, L500.4050, L500.4100 #### [facility] [address] [place], [address] IG% 0.200 Normal 0.0-0.9 [facility] Comment on above: Result Comment: IG% - Immature Granulocytes (promyelocytes, myelocytes and metamyelocytes) > 1% indicates that a LEFT SHIFT is Present. Performed By: #### L 100.0100, L500.4050, L500.4100 #### [facility] [address] [place], [address] Lymphocytes/100 WBC (Bld) 38.0 % Normal 19-41 [facility] Comment on above: Performed By: #### L 100.0100, L500.4050, L500.4100 #### [facility] [address] [place], [address] MCH (RBC) [Entitic mass] 29.2 pg Normal 27.0-32.0 [facility] Comment on above: Performed By: #### L 100.0100, L500.4050, L500.4100 #### [facility] [address] [place], [address] MCHC (RBC) [Mass/Vol] 34.1 g/dL Normal 32-36 [facility] Comment on above: Performed By: #### L 100.0100, L500.4050, L500.4100 #### [facility] [address] [place], [address] MCV (RBC) [Entitic vol] 85.7 fL Normal 81-99 [facility] Comment on above: Performed By: #### L 100.0100, L500.4050, L500.4100 #### [facility] [address] [place], [address] Monocytes/100 WBC (Bld) 6.3 % Normal 0-10 [facility] Comment on above: Performed By: #### L 100.0100, L500.4050, L500.4100 #### [facility] [address] [place], [address] Neutrophils/100 WBC (Bld) 52.9 % Normal 47-70 [facility] Comment on above: Performed By: #### L 100.0100, L500.4050, L500.4100 #### [facility] [address] [place], [address] Nucleated RBC (Bld) [#/Vol] 0 10*3/uL Normal 0-5 [facility] Comment on above: Performed By: #### L 100.0100, L500.4050, L500.4100 #### [facility] [address] [place], [address] Platelet mean volume (Bld) [Entitic vol] 11.2 fL Normal 6.2-12.0 [facility] Comment on above: Performed By: #### L 100.0100, L500.4050, L500.4100 #### [facility] [address] [place], [address] Platelets (Bld) [#/Vol] 302 10*3/uL Normal 150-450 [facility] Comment on above: Performed By: #### L 100.0100, L500.4050, L500.4100 #### [facility] [address] [place], [address] RBC (Bld) [#/Vol] 5.38 10*6/uL Normal 4.2-5.4 [facility] Comment on above: Performed By: #### L 100.0100, L500.4050, L500.4100 #### [facility] [address] [place], [address] RDW SD 37.8 fl Normal 35.1-43.9 [facility] Comment on above: Performed By: #### L 100.0100, L500.4050, L500.4100 #### [facility] [address] [place], [address] WBC (Bld) [#/Vol] 6.5 10*3/uL Normal 4.4-11.0 [facility] Comment on above: Performed By: #### L 100.0100, L500.4050, L500.4100 #### [facility] [address] [place], [address] Calculated very low density lipoprotein (VLDL) cholesterol measurementOrdered By: Joy Eid on 08-07-2024 Calculated very low density lipoprotein (VLDL) cholesterol measurement 30 mg/dL 5-40 [facility] Carbon dioxide, total [Moles /volume] in Central venous bloodOrdered By: Joy Eid on 08-07-2024 CO2 [Moles/Vol] 25.4 mmol/L 21.0-32.0 [facility] Chloride assayOrdered By: Peace Eid on 08-07-2024 Chloride [Moles/Vol] 104 mmol/L 98-108 [facility] Comprehensive Metabolic Prof ilon 08-07-2024 Albumin [Mass/Vol] 4.4 g/dL Normal 3.4-4.8 [facility] Comment on above: Performed By: #### L 100.0100, L500.4050, L500.4100 #### [facility] [address] [place], [address] Albumin/Globulin [Mass ratio] 1.4 {ratio} Normal 0.9-2.4 [facility] Comment on above: Performed By: #### L 100.0100, L500.4050, L500.4100 #### [facility] [address] [place], [address] ALK PHOS 114 U/L High 35-104 [facility] Comment on above: Performed By: #### L 100.0100, L500.4050, L500.4100 #### [facility] [address] [place], [address] ALT [Catalytic activity/Vol] 98 U/L High <=34 [facility] Comment on above: Performed By: #### L 100.0100, L500.4050, L500.4100 #### [facility] [address] [place], [address] AST [Catalytic activity/Vol] 60 U/L High <=31 [facility] Comment on above: Performed By: #### L 100.0100, L500.4050, L500.4100 #### [facility] [address] [place], [address] Bilirubin [Mass/Vol] 0.57 mg/dL Normal 0.00-1.30 [facility] Comment on above: Performed By: #### L 100.0100, L500.4050, L500.4100 #### [facility] [address] [place], [address] BUN/CRE 20.0 RATIO Normal 10-20 [facility] Comment on above: Performed By: #### L 100.0100, L500.4050, L500.4100 #### [facility] [address] [place], [address] Calcium [Mass/Vol] 9.6 mg/dL Normal 7.6-11.0 [facility] Comment on above: Performed By: #### L 100.0100, L500.4050, L500.4100 #### [facility] [address] [place], [address] Chloride [Moles/Vol] 104 mmol/L Normal 98-108 [facility] Comment on above: Performed By: #### L 100.0100, L500.4050, L500.4100 #### [facility] [address] [place], [address] CO2 [Moles/Vol] 25.4 mmol/L Normal 21.0-32.0 [facility] Comment on above: Performed By: #### L 100.0100, L500.4050, L500.4100 #### [facility] [address] [place], [address] Creatinine [Mass/Vol] 0.70 mg/dL Normal 0.70-1.20 [facility] Comment on above: Performed By: #### L 100.0100, L500.4050, L500.4100 #### [facility] [address] [place], [address] GAP 12 Normal 5-15 [facility] Comment on above: Performed By: #### L 100.0100, L500.4050, L500.4100 #### [facility] [address] [place], [address] GFR/1.73 sq M.predicted among non-blacks MDRD (S/P/Bld) [Vol rate/Area] 98 mL/min/{1.73_m2} Normal >60 [facility] Comment on above: Result Comment: mL/m in/1.73m2 CKD-EPI Creatinine Equation (2020) Performed By: #### L 100.0100, L500.4050, L500.4100 #### [facility] [address] [place], [address] Globulin (S) [Mass/Vol] 3.1 g/dL Normal 2.2-4.2 [facility] Comment on above: Performed By: #### L 100.0100, L500.4050, L500.4100 #### [facility] [address] [place], [address] Glucose [Mass/Vol] 103 mg/dL High 70-99 [facility] Comment on above: Performed By: #### L 100.0100, L500.4050, L500.4100 #### [facility] [address] [place], [address] Potassium [Moles/Vol] 4.0 mmol/L Normal 3.3-5.1 [facility] Comment on above: Performed By: #### L 100.0100, L500.4050, L500.4100 #### [facility] [address] [place], [address] Sodium [Moles/Vol] 142 mmol/L Normal 133-145 [facility] Comment on above: Performed By: #### L 100.0100, L500.4050, L500.4100 #### [facility] [address] [place], [address] T PROT 7.5 g/dL Normal 5.9-8.4 [facility] Comment on above: Performed By: #### L 100.0100, L500.4050, L500.4100 #### [facility] [address] [place], [address] Urea nitrogen [Mass/Vol] 14 mg/dL Normal 4-19 [facility] Comment on above: Performed By: #### L 100.0100, L500.4050, L500.4100 #### [facility] [place], [address] Eosinophil percentageOrdered By: Joy Eid on 08-07-2024 Eosinophils/100 WBC (Bld) 1.7 % 0-5 [facility] Erythrocyte distribution wid th ratioOrdered By: [facility] on 08-07-2024 Erythrocyte distribution width (RBC) [Ratio] 12.1 % 11.6-14.6 [facility] Erythrocyte distribution wid th standard deviationOrdered By: [facility] Stanton on 08-07-2024 Erythrocyte distribution width (RBC) [Ratio] 37.8 fl 35.1-43.9 [facility] Glomerular filtration rate ( GFR) estimation/1.73 sq m using serum, plasma, or whole bOrdered By: [facility] on 08-07-2024 GFR/1.73 sq M.predicted among non-blacks MDRD (S/P/Bld) [Vol rate/Area] 98 mL/min/{1.73_m2} >60 [facility] Comment on above: mL/min/1.73m2 CKD-EP I Creatinine Equation (2020) Hematocrit Auto (Bld) [Volum e fraction]Ordered By: [facility] on 08-07-2024 Hematocrit (Bld) [Volume fraction] 46.1 % 37-47 [facility] Hemoglobin measurementOrdere d By: Joy Eid on 08-07-2024 Hemoglobin (Bld) [Mass/Vol] 15.7 g/dL High 12.0-15.0 [facility] Immature granulocytes/100 WB C Auto (Bld)Ordered By: Joy Edi on 08-07-2024 Immature granulocytes/100 WBC (Bld) 0.200 % 0.0-0.9 [facility] Comment on above: IG% - Immature Granu locytes (promyelocytes, myelocytes and metamyelocytes) > 1% indicates that a LEFT SHIFT is Present. LDL calc ser/plasOrdered By: [facility] Stanton on 08-07-2024 Cholesterol in LDL [Mass/Vol] 151 mg/dL [facility] Comment on above: Uinlxvkvaw=486-079 m g/dL & Higher Mzyy=181 mg/dL or greater Laboratory - Chemistry and C hemistry - challengeOrdered By: Joy Eid on 08-07-2024 AST [Catalytic activity/Vol] 60 U/L High <32 [facility] Lipid Profileon 08-07-2024 CHOL:HDL 4.15 Normal [facility] Comment on above: Performed By: #### L 100.0100, L500.4050, L500.4100 #### [facility] [address] [place], [address] Cholesterol [Mass/Vol] 238 mg/dL High <=200 [facility] Comment on above: Result Comment: Chol esterol level, Desirable <200 mg/dL Borderline high cholesterol 200-239 mg/dL High cholesterol >=240 mg/dL Recommendations of the NCEP Adult Treatment Panel for the following risk-cutoff thresholds for the [place] population. Performed By: #### L 100.0100, L500.4050, L500.4100 #### [facility] [address] [place], [address] Cholesterol in HDL [Mass/Vol] 57 mg/dL Normal [facility] Comment on above: Result Comment: [place] on[place] Cholesterol Education Program (NCEP) guidelines: <40 mg/dL: Low HDL-cholesterol (major risk factor for CHD) >= 60 mg/dL: High HDL-cholesterol (negative risk factor for CHD) HDL-cholesterol is affected by a number of factors, e.g. smoking, exercise, hormones, sex and age. Performed By: #### L 100.0100, L500.4050, L500.4100 #### [facility] [address] [place], [address] Cholesterol in LDL [Mass/Vol] 151 mg/dL Normal [facility] Comment on above: Result Comment: Bord qfvisc=027-494 mg/dL Higher Vcxv=951 mg/dL or greater Performed By: #### L 100.0100, L500.4050, L500.4100 #### [facility] [address] [place], [address] Cholesterol in VLDL [Mass/Vol] 30 mg/dL Normal 5-40 [facility] Comment on above: Performed By: #### L 100.0100, L500.4050, L500.4100 #### [facility] [address] [place], [address] Triglyceride [Mass/Vol] 149 mg/dL Normal [facility] Comment on above: Result Comment: The drugs N-Acetylcysteine and Metamizole may falsely depress this assay. Normal range: <150 mg/dL Borderline High: 150-199 mg/dL High: 200-499 mg/dL Very High: >500 mg/dL Performed By: #### L 100.0100, L500.4050, L500.4100 #### [facility] [address] [facility] [place], [address] MCV (mean corpuscular volume ) determinationOrdered By: Joy Eid on 08-07-2024 MCV (RBC) [Entitic vol] 85.7 fL 81-99 [facility] Mean corpuscular hemoglobin (MCH) determinationOrdered By: Joy Eid on 08-07-2024 MCH (RBC) [Entitic mass] 29.2 pg 27.0-32.0 [facility] Mean corpuscular hemoglobin concentration (MCHC) determinationOrdered By: Joy Eid on 08-07-2024 MCHC (RBC) [Mass/Vol] 34.1 g/dL 32-36 [facility] Mean platelet volume determi nationOrdered By: Joy Eid on 08-07-2024 Platelet mean volume (Bld) [Entitic vol] 11.2 fL 6.2-12.0 [facility] Monocyte percentageOrdered B y: Joy Eid on 08-07-2024 Monocytes/100 WBC (Bld) 6.3 % 0-10 [facility] Neutrophil percentageOrdered By: Joy Eid on 08-07-2024 Neutrophils/100 WBC (Bld) 52.9 % 47-70 [facility] Nucleated red blood cell per centageOrdered By: Joy Eid on 08-07-2024 Nucleated RBC/100 WBC (Bld) [Ratio] 0 % 0-5 [facility] Platelet countOrdered By: Peace Eid on 08-07-2024 Platelets (Bld) [#/Vol] 302 10*3/uL 150-450 [facility] Potassium measurement (mass/ volume)Ordered By: Joy Eid on 08-07-2024 Potassium (Unsp spec) [Mass/Vol] 4.0 mmol/L 3.3-5.1 [facility] RBC Auto (Bld) [#/Vol]Ordere d By: Joy Eid on 08-07-2024 RBC (Bld) [#/Vol] 5.38 10*6/uL 4.2-5.4 [facility] Screening total cholesterol/ high density lipoprotein (HDL) cholesterol ratioOrdered By: Joy Eid on 08-07-2024 Cholesterol.total/Cholest dima in HDL [Mass ratio] 4.15 {ratio} [facility] Serum creatinine measurement (mass/volume)Ordered By: Joy Eid on 08-07-2024 Creatinine [Mass/Vol] 0.70 mg/dL 0.70-1.20 [facility] Serum globulin measurementOr dered By: Joy Eid on 08-07-2024 Globulin (S) [Mass/Vol] 3.1 g/dL 2.2-4.2 [facility] Serum glucose measurement (m ass/volume)Ordered By: Joy Eid on 08-07-2024 Glucose [Mass/Vol] 103 mg/dL High 70-99 [facility] Serum or plasma alanine doss otransferase (ALT) measurementOrdered By: Joy Eid on 08-07-2024 ALT [Catalytic activity/Vol] 98 U/L High <35 [facility] Serum or plasma albumin khalida urement (mass/volume)Ordered By: Joy Eid on 08-07-2024 Albumin [Mass/Vol] 4.4 g/dL 3.4-4.8 [facility] Serum or plasma albumin/glob ulin mass ratioOrdered By: Joy Eid on 08-07-2024 Albumin/Globulin [Mass ratio] 1.4 {ratio} 0.9-2.4 [facility] Serum or plasma alkaline aleshia sphatase measurementOrdered By: Joy Eid on 08-07-2024 ALP [Catalytic activity/Vol] 114 U/L High 35-104 [facility] Serum or plasma calcium khalida urement (mass/volume)Ordered By: Joy Eid on 08-07-2024 Calcium [Mass/Vol] 9.6 mg/dL 7.6-11.0 [facility] Serum or plasma cholesterol in HDL measurement (mass/volume)Ordered By: Joy Eid on 08-07-2024 Cholesterol in HDL [Mass/Vol] 57 mg/dL >40 [facility] Comment on above: National Cholesterol Education Program (NCEP) guidelines:<40 mg/dL: Low HDL-cholesterol (major risk factor for CHD)>= 60 mg/dL: High HDL-cholesterol (negative risk factor for CHD)HDL-cholesterol is affected by a number of factors, e.g. smoking, exercise, hormones, sex and age. Serum or plasma cholesterol measurement (mass/volume)Ordered By: Joy Eid on 08-07-2024 Cholesterol [Mass/Vol] 238 mg/dL High <201 [facility] Comment on above: Cholesterol level, D esirable <200 mg/dLBorderline high cholesterol 200-239 mg/dLHigh cholesterol >=240 mg/dLRecommendations of the NCEP Adult Treatment Panel for the following risk-cutoff thresholds for the [place] population. Serum or plasma urea nitroge n measurement (mass/volume)Ordered By: Joy Eid on 08-07-2024 Urea nitrogen [Mass/Vol] 14 mg/dL 4-19 [facility] Sodium levelOrdered By: Shabnam Eid on 08-07-2024 Sodium [Moles/Vol] 142 mmol/L 133-145 [facility] Total proteinOrdered By: Anuradha Eid on 08-07-2024 Protein [Mass/Vol] 7.5 g/dL 5.9-8.4 [facility] Triglycerides measurementOrd ered By: Joy Eid on 08-07-2024 Triglyceride [Mass/Vol] 149 mg/dL <199 [facility] Comment on above: The drugs N-Acetylcy steine and Metamizole may falsely depress this assay. Normal range: <150 mg/dLBorderline High: 150-199 mg/dLHigh: 200-499 mg/dLVery High: >500 mg/dL White blood cell (WBC) count Ordered By: Joy Eid on 08-07-2024 WBC (Bld) [#/Vol] 6.5 10*3/uL 4.4-11.0 [facility] Colonoscopy Reporton 025 Colonoscopy Report [facility] Medical Records Department [address] [place] [address] Colonoscopy Report MR#: [id number] Acct: [id number] Name: FLORENCIO REZA SATHYA Rep #: [id number] : 1960 64 From: Deo Schmidt DO PCP: Dr. Joy Eid MD [place] [facility] [facility] [place] Name: Florencio Reza Procedure Date: 06/05/2024 10:36 AM Date of : 1960 Age: 64 Procedure: Colonoscopy Indications: Screening for colorectal malignant neoplasm Providers: Deo Schmidt DO Referring MD: Joy Eid Md Medicines: Monitored Anesthesia Care Patient Profile: This is a 64 year old female. Refer to note in patient chart for documentation of history and physical. Last Colonoscopy: several years ago. Complications: No immediate complications. Procedure: Pre-Anesthesia Assessment: - Prior to the procedure, a History and Physical was performed, and patient medications and allergies were reviewed. The patient is competent. The risks and benefits of the procedure and the sedation options and risks were discussed with the patient. All questions were answered and informed consent was obtained. Patient identification and proposed procedure were verified by the physician in the pre-procedure area. Mental Status Examination: alert and oriented. Airway Examination: normal oropharyngeal airway and neck mobility. Respiratory Examination: clear to auscultation. CV Examination: normal. Prophylactic Antibiotics: The patient requires prophylactic antibiotics. Prior Anticoagulants: The patient has taken no anticoagulant or antiplatelet agents. ASA Grade Assessment: II - A patient with mild systemic disease. After reviewing the risks and benefits, the patient was deemed in satisfactory condition to undergo the procedure. The anesthesia plan was to use monitored anesthesia care (MAC). Immediately prior to administration of medications, the patient was re-assessed for adequacy to receive sedatives. The heart rate, respiratory rate, oxygen saturations, blood pressure, adequacy of pulmonary ventilation, and response to care were monitored throughout the procedure. The physical status of the patient was re-assessed after the procedure. After I obtained informed consent, the scope was passed under direct vision. Throughout the procedure, the patient's blood pressure, pulse, and oxygen saturations were monitored continuously. The pediatric colonoscope was introduced through the anus and advanced to the cecum, identified by appendiceal orifice and ileocecal valve. The colonoscopy was performed without difficulty. The patient tolerated the procedure well. The quality of the bowel preparation was adequate. The ileocecal valve, appendiceal orifice, and rectum were photographed. Scope In: 10:47:27 AM Scope Withdrawal Time 0 hours 11 minutes 45 seconds Scope Out: 11:09:45 AM Total Procedure Duration Time 0 hours 22 minutes 18 seconds Findings: The perianal and digital rectal examinations were normal. An 8 mm polyp was found in the hepatic flexure. The polyp was sessile. The polyp was removed with a hot snare. Resection and retrieval were complete. Verification of patient identification for the specimen was done. Estimated blood loss was minimal. Multiple small-mouthed diverticula were found in the recto-sigmoid colon, sigmoid colon and descending colon. There was no evidence of diverticular bleeding. The exam was otherwise without abnormality on direct and retroflexion views. Impression: - One 8 mm polyp at the hepatic flexure, removed with a hot snare. Resected and retrieved. - Moderate diverticulosis in the recto-sigmoid colon, in the sigmoid colon and in the descending colon. There was no evidence of diverticular bleeding. - The examination was otherwise normal on direct and retroflexion views. Recommendation: - Discharge patient to home. - Resume previous diet. - Continue present medications. - Await pathology results. - Repeat colonoscopy in 5 years for surveillance. Procedure Code(s): --- Professional --- 56912, Colonoscopy, flexible; with removal of tumor(s), polyp(s), or other lesion(s) by snare technique CPT copyright 2021 [employer]. All rights reserved. The codes documented in this report are preliminary and upon gaming department head review may be revised to meet current compliance requirements. Deo Schmidt DO 06/05/2024 11:16:03 AM This report has been signed electronically. Number of Addenda: 0 Note Initiated On: 06/05/2024 10:36 AM 06/05/24 1116 Date Deo Gloria Signature: Date (if indicated) CC: Dr. Joy Eid MD; Deo Schmidt DO Date Dictated: 06/05/24 1036 Date Transcribed: Printing Gray Cloth Tender: RF Signed [facility] MR/CON.PCMDaleAnaly 06-05-2024 MR/CON.PCM.[facility] Medical Records Department [address] [facility] [place] [address] Consultation - GI 06/05/24 1007 MR#: [id number] Acct: [id number] Name: FLORENCIO REZA SATHYA Rep #: [id number] : 1960 64 From: Deo Schmidt DO PCP: Dr. Joy Eid MD Status:[facility] [place] Location: [place] [address] HPI Consult Data Date of Consult: 06/05/24 HPI Narrative Reason for Consultation: Screening colonoscopy HPI Narrative: FLORENCIO REZA, is a 64 F who presents for screening colonoscopy. She had a colonoscopy back in 2018 that a small benign polyp that was removed. She has not a problem with her bowels. She denies any chest pain or shortness of breath. Overall she is in very good health. [facility] Medical History Wears contact lenses Cancer High cholesterol Gastric reflux Non-smoker PONV (postoperative nausea and vomiting) Family history of rectal cancer Hx of colonic polyp Ovarian cyst, bilateral Hypertension Hyperlipidemia Home Medications ???Medication ???Instructions ???Recorded ???Last Taken ???Type lisinopril 20 mg tablet 20 mg PO BID 03/21/17 03/23/17 His tory amlodipine 5 mg tablet 10 mg PO DAILY 04/18/19 Unknown Hi story ascorbic acid (vitamin C) 500 mg 500 mg PO DAILY 08/22/22 Unknown H istory capsule coenzyme Q10 75 mg capsule (Ultra 75 mg PO DAILY 08/22/22 Unknown H istory CoQ10) mecobalamin (vitamin B12) 1,000 1,000 mcg PO QDAY 04/04/24 Unknown History mcg chewable tablet Allergy/AdvReac Type Severity Reaction Status Date / Time Opioids - Morphine Analogues AdvReac Vomiting Verified 06/04/24 10:42 (narcotics) Family History Mother Hypertension Hyperlipidemia Rectal cancer Father Hypertension Hyperlipidemia Surgical History Hx of colonoscopy S/P cholecystectomy S/P bilateral oophorectomy S/P abdominal hysterectomy S/P partial glossectomy S/P laparoscopy Social History household members: spouse current occupational status: retired Smoking Status: Never smoker alcohol intake: never substance use type: does not use caffeine: Yes what type of physical activity do you participate in: walking frequency: 5-6 times per week seatbelt use: always do you feel safe at home: Yes additional social history: - 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 Constitutional Constitutional: Denies fatigue, fever(s), poor appetite, weight gain or weight loss Gastrointestinal Gastrointestinal: Denies belching, bloating, change in bowel habits, change in stool character, chewing difficulty, coffee ground emesis, constipation, cramping, diarrhea, dyspepsia, dysphagia, early satiety, excessive flatus, fecal incontinence, heartburn, hematemesis, hematochezia, hemorrhoids, loose stools, melena, nausea, odynophagia, rectal bleeding, tenesmus, vomiting or weight changes Physical Exam Const alert, oriented x3, no apparent distress and healthy appearing General Appearance: cooperative GI normal to inspection, nondistended, normoactive bowel sounds, soft to palpation, non-tender and non- distended Percussion: normal to percussion Rectal Exam: deferred Assessment Plan Assessment/Plan (1) Encounter for screening for malignant neoplasm of colon: PLAN: She was explained alternatives, risk, benefits including not withstanding bleeding, infection, sepsis, perforation, need emergent surgery and . She will be ASA of 3. 06/05/24 1009 Cosigner Signature (if applicable): CC: Dr. Joy Eid MD Signed [facility] MR/POSTOP.ANEon 06-05-2024 MR/POSTOP.[facility] Medical Records Department [address] [place] [address] Anesthesia Postop Eval I 06/05/24 1039 MR#: [id number] Acct: [id number] Name: FLORENCIO REZA SATHYA Rep #: [id number] : 1960 64 From: Haider Muhammad CRNA PCP: Dr. Joy Eid MD Status:REG ARI Y Race: C Location: [place] [address] Anesthesia: Postop Eval I Current Vital Signs Temperature: 97.1 F Pulse Rate: 66 Blood Pressure: 95/59 Respiratory Rate: 20 Pulse Ox: 95 Oxygen Delivery Method: Room Air Assessment Airway patent: Yes Spontaneous unlabored respirations: Yes Mental status: Asleep nausea: No Vomiting: No Anesthesia Complication: No Fluid Hydration Crystalloid volume administer (ml): 30 Total IV fluid infused: 30 Progress Note Anesthesia document: Postop Eval 1 completed: Yes 06/05/24 1116 Date Haider Muhammad CRNA Cosigner Signature: Date CC: Signed [facility] MR/[id number] 06-05-2024 MR/POSTOPAN2 [facility] Medical Records Department [address] [place] [address] Anesthesia Postop Eval II 06/05/24 1415 MR#: [id number] Acct: [id number] Name: FLORENCIO REZA SATHYA Rep #: [id number] : 1960 64 From: Kamla Salas PCP: Dr. Joy Eid MD Status:DEP SDC Y Race: C Location: EN Anesthesia Postop Eval I Sum Postop Eval Completion status Anesthesia document: Postop Eval 1 completed: Yes Anesthesia Postop Eval I Summary Anesthesia Postop Eval I Summary: Anesthesia Postop Eval I: Assessment Summary Airway patent Yes 06/05/24 11:16 SPANISH INTERPRETER/[email or web address] Spontaneous unlabored Yes 06/05/24 11:16 SPANISH INTERPRETER/[email or web address] respirations Mental status Asleep 06/05/24 11:16 SPANISH INTERPRETER/[email or web address] nausea No 06/05/24 11:16 SPANISH INTERPRETER/[email or web address] Vomiting No 06/05/24 11:16 SPANISH INTERPRETER/[email or web address] Anesthesia Postop Eval I: Fluid Summary Crystalloid volume administer 30 06/05/24 11:16 SPANISH INTERPRETER/[email or web address] (ml) Colloids volume administered ( ml) Blood Product volume administered (ml) Total IV fluid infused 30 06/05/24 11:16 SPANISH INTERPRETER/[email or web address] Anesthesia Postop Eval I: Summary Notes Anesthesia Complication No 06/05/24 11:16 SPANISH INTERPRETER/[email or web address] Anesthesia Complication Comment: Post-operative progress note Anesthesia: Postop Eval II Evaluation Mental status: Awake Pain Level: 0 nausea: No Vomiting: No 06/05/24 1415 Date Kamla Eason Signature: Date CC: Signed Normal [facility] Surgery Specimen Level Gutierrez 06-05-2024 Surgery Specimen Level IV ----- Patient Age/Sex Location Account Attending Physician FLORENCIO REZA 64/F EN [id number] Deo Schmidt DO Specimen: [id number] Received: 06/05/24 Status: MARILU Pérezkarrie Num: [id number] Spec Type: COLON BX Subm Dr: Deo Schmidt DO HEADER OPERATION: Colonoscopy, polypectomy PRE-OP DIAGNOSIS: Screening TISSUE SUBMITTED: A- Hepatic flexure polyp MICROSCOPIC DIAGNOSIS Hepatic flexure polyp, biopsy:Colonic mucosa without evidence of dysplasiaSudeep He MD, 06/14/2024 MICROSCOPIC DESCRIPTION Slides are reviewed. GROSS DESCRIPTION A. Received in fixative is one container labeled with the patient's name and designated Hepatic flexure polyp. The specimen consists of multiple irregular fragments of light pereira soft tissue that in aggregate measure 1.4 x 0.2 x 0.2 cm. The specimen is totally submitted in one cassette. MS/mr 06/05/2024 CPT:68210 , TC:4 Patient Age/Sex Location Account Attending Physician FLORENCIO REZA 64/F EN [id number] Deo Schmidt DO Signed (signatur e on file) Dr. Vidal He MD 06/14/245 Normal [facility] Comment on above: Performed By: #### P HYUN #### [facility] Laboratory [address], [id number] Technical Solution Architect Office Visit Reporton 09-12-2023 Technical Solution Architect Office Visit Report [facility] 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) Chief Complaint: Annual Retail Selling Specialist Required: No Is patient in pain?: No Allergies No Known Allergies Allergy (Verified 09/12/23 08:06) Medications ???Medication ???Instructions ???Recorded ???Confirmed ???Type lisinopril 20 mg tablet 20 mg PO BID 03/21/17 09/12/23 History amlodipine 5 mg tablet 10 mg PO DAILY 04/18/19 09/12/23 History ascorbic acid (vitamin C) 500 mg mg PO 08/22/22 09/12/23 History capsule coenzyme Q10 75 mg capsule (Ultra 75 mg PO DAILY 08/22/22 09/12/23 History CoQ10) Is last menstrual period known: No Post menopausal: Yes Patient : No : No Control Method: Hysterectomy PFSH Medical History Ovarian cyst, bilateral Hypertension Hyperlipidemia Surgical History S/P cholecystectomy S/P bilateral oophorectomy S/P abdominal hysterectomy S/P partial glossectomy S/P laparoscopy Family History Mother Hypertension Hyperlipidemia Rectal cancer Father Hypertension Hyperlipidemia Social History Smoking Status: Never smoker alcohol intake: never substance use type: does not use caffeine: Yes what type of physical activity do you participate in: walking frequency: 5-6 times per week seatbelt use: always do you feel safe at home: Yes additional social history: - 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 Denies concerns Last PAP: hyst History of abnormal PAP: no Last mammogram: today pending History of abnormal mammogram: no Colon cancer screenin Q 10 yr Other preventative health care screenings: [place] Female Reproductive History Questions: metorrhagia: No, sexually active: Yes, dyspareunia: No (relieved with coconut oil) and PCB: No Menopausal Treatment: No HRT, No Vaginal Estrogen, No Osphena, No OTC treatments and No prescription non-hormonal treatment ROS Const Constitutional: Denies fatigue, weight gain or weight loss Cardio Card: Denies chest pain Resp Resp: Denies cough or dyspnea on exertion GI GI: Denies abdominal pain, bloating, change in stool character, constipation or vomiting : Reports as per HPI; Denies difficulty voiding, pelvic pain, urinary frequency, urinary incontinence, urinary urgency, vaginal discharge or vaginal pruritus Exam Const General: cooperative, healthy appearing, no acute distress and well developed Orientation: alert, oriented to person and oriented to place HENNC Head: normal to inspection Neck Neck: normal visual inspection Thyroid: thyroid normal Lymphatic: no lymphadenopathy noted Chest Breast inspection: normal inspection of the breasts and normal inspection of the axillae Breast palpation: normal palpation of the breasts, normal palpation of the axillae and no axillary lymphadenopathy Resp Effort Inspection: normal respiratory effort GI Palpation: soft, no masses and nontender Rectal Exam: deferred External Female Exam: normal external appearance and normal appearance of the urethra Urethra: normal appearance of the urethra and normal palpation Speculum Exam - Vagina: normal vaginal discharge and vagina atrophic Speculum Exam - Cervix: absent Bimanual Exam- Vagina Uterus: normal bimanual exam and uterus absent Bimanual Exam- Adnexa, other: normal adnexae, no masses, normal and non-tender Pelvic Support: normal Neuro General: patient alert and patient oriented x3 Psych Affect: normal affect Coding Level of Care Code Off vis,est,prev 40-64yrs Diagnoses Encounter for gynecological examination with abnormal finding Z01.411 Gynecological examination findings: abnormal findings PRESENT Atrophic vaginitis N95.2 Assessment and Plan Assessment and Plan (1) Encounter for routine gynecological examination: 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 Normal [facility] SCRN MAMM (CAD)W/VIELKA BILATo n 09-12-2023 SCRN MAMM (CAD)W/VIELKA BILAT [facility] Imaging Services [address] [place] [address] SCRN MAMM (CAD)W/VIELKA BILAT MR#: [id number] Acct: [id number] Name: FLORENCIO REZA STAHYA Rep #: [id number] : 1960 F 63 From: Kurtis kincaid MD PCP: SHAYLA Robles Status: [facility] Study: SCRN MAMM (CAD)W/VIELKA BILAT Date of Exam: 08/19 08/10 Exam# [id number] Ordering Dr: Sarah Reed NP OUTPATIENT DIETITIAN -C -[id number] MAMMOGRAPHY - BILATERAL SCREENING REASON FOR EXAM: Female, 63 years old. Routine annual screening examination. PERTINENT HISTORY: Non-contributory. TECHNIQUE: Digital bilateral breast vielka (3D mammographic acquisition) in the CC and MLO projections. 2-D mediolateral oblique (MLO) and craniocaudad (CC) views of both breasts were obtained. CAD: Full Field Digital Mammography with Computer Added Detection was performed. COMPARISON: Comparison is made with prior study dated August 22, 2022 and August 17, 2021. FINDINGS: Breast Composition: The breasts are almost entirely fatty. There are no dominant masses or suspicious calcifications. No other significant abnormalities are identified. There has been no significant change since the prior study. BI/SCRN MAMM (CAD)W/VIELKA BILAT IMPRESSION: Stable bilateral screening mammogram. Yearly follow-up mammogram recommended. (A) ASSESSMENT CATEGORY: BIRADS Category 1: Negative. A letter regarding these results will be sent to the patient by the facility within 30 days. Approximately 10% of breast cancers are not detected by mammography. A normal mammogram should not delay biopsy of a clinically suspicious abnormality. [id number] Electronically Signed: Kurtis Ruff MD at 8:25 EDT , CC: SHAYLA Reed Printing Gray Cloth Tender: Signed Normal [facility] Absolute lymphocyte countOrd ered By: Adina Chaunger on 06-16-2022 Lymphocytes Auto (Unsp spec) [#/Vol] 2.59 10*3/uL 0.83-4.51 [facility] Basophil percentageOrdered B y: Adina Lee on 06-16-2022 Basophils/100 WBC (Bld) 0.9 % 0-1 [facility] Bilirubin [Mass/Vol] 0.60 mg/dL 0.20-1.00 [facility] Comment on above: For patients on eltr ombopag therapy, use of Dimension [place] TBIL is not recommended. Chloride [Moles/Vol] 105 mmol/L 98-107 [facility] Cholesterol [Mass/Vol] 172 mg/dL <200 [facility] Comment on above: <200 mg/dL Desirable 200-240 mg/dL Borderline >240 mg/dL High Risk Eosinophils/100 WBC (Bld) 3.5 % 0-5 [facility] Glucose [Mass/Vol] 99 mg/dL 74-106 [facility] Neutrophils (Bld) [#/Vol] 3.2 10*3/uL 2.0-7.7 [facility] Neutrophils/100 WBC (Bld) 49.0 % 47-70 [facility] Potassium [Moles/Vol] 3.8 mmol/L 3.5-5.1 [facility] Protein [Mass/Vol] 7.6 g/dL 6.4-8.2 [facility] Sodium [Moles/Vol] 141 mmol/L 136-145 [facility] Triglyceride [Mass/Vol] 137 mg/dL <199 [facility] Comment on above: The drugs N-Acetylcy steine and Metamizole may falsely depress this assay.Serum Triglycerides Reference Interval Normal <150 mg/dL Borderline high 150 - 199 mg/dL High 200 - 499 mg/dL Very High > or = 500 mg/dL WBC (Bld) [#/Vol] 6.5 10*3/uL 4.4-11.0 [facility] Blood erythrocytes count (nu mber/volume)Ordered By: Adina Lee on 06-16-2022 RBC (Bld) [#/Vol] 5.26 10*6/uL 4.2-5.4 [facility] Blood hemoglobin measurement (mass/volume)Ordered By: Adina Lee on 06-16-2022 Hemoglobin (Bld) [Mass/Vol] 15.1 g/dL 12.0-15.0 [facility] Blood lymphocytes/100 leukoc ytesOrdered By: Adnia Lee on 06-16-2022 Lymphocytes/100 WBC (Bld) 39.8 % 19-41 [facility] Blood monocytes/100 leukocyt esOrdered By: Adina Lee on 06-16-2022 Monocytes/100 WBC (Bld) 6.6 % 0-10 [facility] Blood platelet mean volumeOr dered By: Adina Lee on 06-16-2022 Platelet mean volume (Bld) [Entitic vol] 10.9 fL 6.2-12.0 [facility] Determination of erythrocyte mean corpuscular volume (MCV)Ordered By: Adina Lee on 06-16-2022 MCV (RBC) [Entitic vol] 87.5 fL 81-99 [facility] Hematocrit Auto (Bld) [Volum e fraction]Ordered By: Adina Lee on 06-16-2022 Hematocrit (Bld) [Volume fraction] 46.0 % 37-47 [facility] Laboratory - Chemistry and C hemistry - challengeOrdered By: Adina Lee on 03-30-2023 ALP [Catalytic activity/Vol] 109 U/L 45-117 [facility] ALT [Catalytic activity/Vol] 86 U/L 13-56 [facility] CO2 [Moles/Vol] 30.0 mmol/L 21.0-32.0 [facility] Globulin (S) [Mass/Vol] 3.7 g/dL 2.2-4.2 [facility] Urea nitrogen/Creatinine [Mass ratio] 17.0 mg/mg 10-20 [facility] - Hematology and Cell countsOrdered By: Adina Lee on 06-16-2022 Erythrocyte distribution width (RBC) [Entitic vol] 39.9 fL 35.1-43.9 [facility] Erythrocyte distribution width (RBC) [Ratio] 12.3 % 11.6-14.6 [facility] Immature granulocytes/100 WBC (Bld) 0.200 % 0.0-0.9 [facility] Comment on above: IG% - Immature Granu locytes (promyelocytes, myelocytes and metamyelocytes) > 1% indicates that a LEFT SHIFT is Present. MCH (RBC) [Entitic mass] 28.7 pg 27.0-32.0 [facility] Nucleated RBC/100 WBC (Bld) [Ratio] 0 % 0-5 [facility] MCHC Auto (RBC) [Mass/Vol]Or dered By: Adina Lee on 06-16-2022 MCHC (RBC) [Mass/Vol] 32.8 g/dL 32-36 [facility] No Panel InformationOrdered By: Adina Lee on 06-16-2022 Estimated GFR (MDRD) Amer 109 mL/min >60 [facility] Comment on above: GFR Calc Estimated GFR (MDRD) Non-Af Amer 90 mL/min >60 [facility] Comment on above: Non- GFR Calc Platelets bldOrdered By: Ghassan Lee on 06-16-2022 Platelets (Bld) [#/Vol] 270 10*3/uL 150-450 [facility] Serum or plasma albumin khalida urement (mass/volume)Ordered By: Adina Lee on 06-16-2022 Albumin [Mass/Vol] 3.9 g/dL 3.2-5.0 [facility] Serum or plasma albumin/glob ulin mass ratioOrdered By: Adina Lee on 06-16-2022 Albumin/Globulin [Mass ratio] 1.1 {ratio} 0.9-2.4 [facility] Serum or plasma calcium khalida urement (mass/volume)Ordered By: Adina Lee on 06-16-2022 Calcium [Mass/Vol] 9.3 mg/dL 8.5-10.1 [facility] Serum or plasma cholesterol in HDL measurement (mass/volume)Ordered By: Adina Lee on 06-16-2022 Cholesterol in HDL [Mass/Vol] 58 mg/dL >40 [facility] Comment on above: The drugs N-Acetylcy steine and Metamizole may falsely depress this assay. Reference Range HDL <40 mg/dL Low HDL Cholesterol HDL >or= 60 mg/dL High HDL Cholesterol Serum or plasma cholesterol in VLDL measurement (mass/volume)Ordered By: Adina Lee on 06-16-2022 Cholesterol in VLDL [Mass/Vol] 27 mg/dL 5-40 [facility] Serum or plasma creatinine m easurement (mass/volume)Ordered By: Adina Lee on 06-16-2022 Creatinine [Mass/Vol] 0.70 mg/dL 0.55-1.02 [facility] Comment on above: The validity of the calculated GFR & GFRAA in patients over 70 years has not been determined. Clinical correlation is essential. Serum or plasma low density lipoprotein (LDL) cholesterol measurement (mass/volume)Ordered By: Adina Lee on 06-16-2022 Cholesterol in LDL [Mass/Vol] 87 mg/dL 0-130 [facility] Serum or plasma urea nitroge n measurement (mass/volume)Ordered By: Adina Lee on 06-16-2022 Urea nitrogen [Mass/Vol] 12 mg/dL 7-18 [facility] Thin prep Papanicolaou smear with manual screeningOrdered By: Adina Lee on 06-16-2022 Thin prep Papanicolaou smear with manual screening 37 U/L 15-37 [facility] Thin prep Papanicolaou smear with manual screening 6 5-15 [facility] Thin prep Papanicolaou smear with manual screening 29.2 mg/L NO RANGE EST. [facility] Vital Signs Date Time Vital Sign Value Performing Clinician Glenny okeefe 06-05-2024 11:25-0400 Body temperature 97 [degF] Sarah Pedersons OUTPATIENT DIETITIAN-C Work Phone: [facility] 06-05-2024 11:25-0400 Diastolic blood pressure 74 mm[Hg] Sarah Kennard OUTPATIENT DIETITIAN-C Work Phone: [facility] 06-05-2024 11:25-0400 Heart rate 78 /min Sarah Kennard OUTPATIENT DIETITIAN-C Work Phone: [facility] 06-05-2024 11:25-0400 Respiratory rate 16 /min Sarah Derek OUTPATIENT DIETITIAN-C Work Phone: [facility] 06-05-2024 11:25-0400 SaO2% (BldA) [Mass fraction] 94 % Sarah Derek OUTPATIENT DIETITIAN-C Work Phone: [facility] 06-05-2024 11:25-0400 Systolic blood pressure 121 mm[Hg] Sarah Derek OUTPATIENT DIETITIAN-C Work Phone: [facility] 06-05-2024 10:17-0400 Body height 165.1 cm Sarah Derek OUTPATIENT DIETITIAN-C Work Phone: [facility] 06-05-2024 10:17-0400 Body mass index (BMI) [Ratio] 29 kg/m2 Sarah Kennard OUTPATIENT DIETITIAN-C Work Phone: [facility] 06-05-2024 10:17-0400 Body weight 79 kg Sarah Derek OUTPATIENT DIETITIAN-C Work Phone: [facility] 04-04-2024 11:55-0500 Body mass index (BMI) [Ratio] 28.3 kg/m2 Sarah Derek OUTPATIENT DIETITIAN-C Work Phone: [facility] 04-04-2024 11:55-0500 Body weight 77.11 kg Sarah Kennard OUTPATIENT DIETITIAN-C Work Phone: [facility] 08-22-2022 08:14-0400 Body height 165.[address] Anurag Shah Work Phone: [facility] 08-22-2022 08:14-0400 Body mass index (BMI) [Ratio] 27.7 kg/m2 Dr. Anurag Shah Work Phone: [facility] 08-22-2022 08:14-0400 Body weight 75.[address] Anurag Shah Work Phone: [facility] 08-22-2022 08:14-0400 Diastolic blood pressure 80 mm[Hg] Dr. Anurag Shah Work Phone: [facility] 08-22-2022 08:14-0400 Systolic blood pressure 168 mm[Hg] Dr. Anurag Shah Work Phone: [facility] 08-17-2021 08:39-0400 Body height 165.[address] Anurag Verdugo Work Phone: [facility] Work Phone: 08-17-2021 08:39-0400 Body mass index (BMI) [Ratio] 27.8 kg/m2 Dr. Anurag Verdugo Work Phone: [facility] Work Phone: 08-17-2021 08:39-0400 Body weight 75.[address] Anurag Verdugo Work Phone: [facility] Work Phone: 08-17-2021 08:39-0400 Diastolic blood pressure 98 mm[Hg] Dr. Anurag Verdugo Work Phone: [facility] Work Phone: 08-17-2021 08:39-0400 Systolic blood pressure 156 mm[Hg] Dr. Anurag Verdugo Work Phone: [facility] Work Phone: Encounters Encounter Date Encounter Type Care Provider Facility Start: 08-07-2024 End: 08-07-2024 ambulatory Joy Eid MD Work Phone: [facility] Work Phone: Start: 08-07-2024 End: 08-07-[address] Joy Eid MD -[facility] [place] Work Phone: Start: 08-07-2024 End: 08-07-2024 ambulatory Joy Eid Facility:[facility] Start: 06-05-2024 End: 06-05-2024 Admission to same day surgery center Deo Schmidt DO -Endoscopy Work Phone: Start: 06-05-2024 End: 06-05-2024 ambulatory Sarah Derek OUTPATIENT DIETITIAN-C Work Phone: [facility] Work Phone: Start: 06-05-2024 Non-patient / Non-visit Deo Mishra nd DO -[facility] Start: 04-04-2024 Non-patient / Non-visit Sarah Kennard OUTPATIENT DIETITIAN-C Work Phone: -[facility] Work Phone: Start: 04-04-2024 ambulatory Lamar Mikie Facility:[facility] Start: 09-12-2023 End: 09-12-2023 ambulatory Sarah Kennard OUTPATIENT DIETITIAN Facility:[facility] Start: 09-12-2023 End: 09-12-2023 ambulatory Sarah Kennard OUTPATIENT DIETITIAN Facility:[facility] Start: 08-22-2022 End: 08-22-[address] Anurag Shah Work Phone: [facility] Work Phone: Start: 08-22-2022 End: 08-22-[address] Anurag Shah Work Phone: [facility] Start: 06-16-2022 End: 06-16-2022 ambulatory [facility] Work Phone: Start: 06-16-2022 End: 06-16-2022 Patient encounter procedure [facility] Start: 08-17-2021 End: 08-17-[address] Anurag Verdugo Work Phone: [facility] Procedures Date Procedure Procedure Detail Performing Clinician Start: 06-05-2024 Colonoscopy Sarah Hast ings OUTPATIENT DIETITIAN-C Work Phone: Start: 08-22-2022 Screening mammography Lanre Shah Work Phone: Start: 08-17-2021 Screening mammography Lanre Verdugo Work Phone: Plan of Treatment Date Care Activity Detail Author Start: 06-05-2024 Colsc flx w/rmvl of tumor polyp lesion snare tq COLONOSCOPY W/LESION REMOVAL [facility] Start: 06-05-2024 Patient discharge [facility] Colonoscopy [facility] Patient referral [facility] Work Phone: Immunizations Immunization Date Immunization Notes Care Provider Ember sanchez 02-11-2019 influenza, injectabl e, quadrivalent, preservative free Sarah Derek OUTPATIENT DIETITIAN-C Work Phone: [facility] 02-11-2019 influenza, seasonal, injectable Dr. Anurag Verdugo Work Phone: [facility] 01-01-2018 influenza, injectabl e, quadrivalent, preservative free Sarah Derek OUTPATIENT DIETITIAN-C Work Phone: [facility] 01-01-2018 influenza, seasonal, injectable Dr. Anurag Verdugo Work Phone: [facility] 12-14-2016 influenza, injectabl e, quadrivalent, preservative free Sarah Kennard OUTPATIENT DIETITIAN-C Work Phone: [facility] 12-14-2016 influenza, seasonal, injectable Dr. Anurag Verdugo Work Phone: [facility] 12-18-2015 influenza, injectabl e, quadrivalent, preservative free Sarah Kennard OUTPATIENT DIETITIAN-C Work Phone: [facility] 12-18-2015 influenza, seasonal, injectable Dr. Anurag Verdugo Work Phone: [facility] 02-02-2015 influenza, injectabl e, quadrivalent, preservative free Sarah Kennard OUTPATIENT DIETITIAN-C Work Phone: [facility] 02-02-2015 influenza, seasonal, injectable Dr. Anurag Verdugo Work Phone: [facility] 12-18-2013 influenza, injectabl e, quadrivalent, preservative free Sarah Derek OUTPATIENT DIETITIAN-C Work Phone: [facility] 12-18-2013 influenza, seasonal, injectable Dr. Anurag Verdugo Work Phone: [facility] Payers Date Payer Category Payer Unknown 2023 Self-pay [id number] 2023 Unknown [id number] Unknown [id number] Unknown [id number] 2.16.8 [id number] Unknown [id number] 2.16.8 [id number] Unknown [id number] 2.16.8 [id number] Unknown [id number] 2.16.8 [id number] Unknown [id number] 2.16.8 [id number] Unknown [id number] 2.16.8 [id number] Unknown [id number] 2.16.8 [id number] Social History Date Type Detail Facility Start: 08-17-2021 End: 08-22-2022 Tobacco smoking status NHIS Unknown if ever smoked [facility] Start: 03-23-2017 Non-smoker [facility] Start: 1960 Sex Assigned At Female [facility] Start: 06-04-2024 Tobacco smoking status NHIS Never smoked tobacco (finding) [facility] Start: 06-05-2024 Sex Female (finding) [facility] NEGATED: Highlighted row Not [facility] Goals Date Patient Goal Desired Activity /State Mental Status Date Assessment Result Facility 06-05-2024 Cognitive function Voice/Name [facility] Work Phone: Clinical Notes 06-05-2024 Note Date & Type Note Facility 06-05-2024 Evaluation note Diagnosis Onset Date Resolution Encounter for screening for malignant neoplasm of colon acute June 05, 2024 9:36am [facility] Work Phone: 1(754) 797-305303-19-2025 Consult note [facility] Medical Records Department [address] [place] [address] Anesthesia Postop Eval I 06/05/24 1039 MR#: [id number] Acct: [id number] Name: FLORENCIO REZA SATHYA Rep #:[id number] : 1960 64 From: Haider Muhammad SPANISH INTERPRETER/TRANSLATOR PCP: Dr. Joy Eid MD Status:REG SD C Y Race: C Location: [facility] Anesthesia: Postop Eval I Current Vital Signs Temperature: 97.1 F Pulse Rate: 66 Blood Pressure: 95/59 Respiratory Rate: 20 Pulse Ox: 95 Oxygen Delivery Method: Room Air Assessment Airway patent: Yes Spontaneous unlabored respirations: Yes Mental status: Asleep nausea: No Vomiting: No Anesthesia Complication: No Fluid Hydration Crystalloid volume administer (ml): 30 Total IV fluid infused: 30 Progress Note Anesthesia document: Postop Eval 1 completed: Yes 06/05/24 1116 y SPANISH INTERPRETER/TRANSLATOR> Date _ Haider Muhammad SPANISH INTERPRETER/TRANSLATOR Cosigner Signature: Date CC: ~ Signed [facility]03-19-2025 Procedure note [facility] Medical Records Department [address] [place] [address] Colonoscopy Report MR#: [id number] Acct: [id number] Name: FLORENCIO REZA Rep #:[id number] : 1960 64 From: Deo Schmidt DO PCP: Dr. Joy Eid MD Status:REG SD C Patient Name: Florencio Reza Procedure Date: 06/05/2024 10:36 AM Date of : 1960 Age: 64 Procedure: Colonoscopy Indications: Screening for colorectal malignant neoplasm Providers: Deo Schmidt DO Referring MD: Joy Eid Md Medicines: Monitored Anesthesia Care Patient Profile: This is a 64 year old female. Refer to note in patient chart for documentation of history and physical. Last Colonoscopy: several years ago. Complications: No immediate complications. Procedure: Pre-Anesthesia Assessment: - Prior to the procedure, a History and Physical was performed, and patient medications and allergies were reviewed. The patient is competent. The risks and benefits of the procedure and the sedation options and risks were discussed with the patient. All questions were answered and informed consent was obtained. Patient identification and proposed procedure were verified by the physician in the pre-procedure area. Mental Status Examination: alert and oriented. Airway Examination: normal oropharyngeal airway and neck mobility. Respiratory Examination: clear to auscultation. CV Examination: normal. Prophylactic Antibiotics: The patient requires prophylactic antibiotics. Prior Anticoagulants: The patient has taken no anticoagulant or antiplatelet agents. ASA Grade Assessment: II - A patient with mild systemic disease. After reviewing the risks and benefits, the patient was deemed in satisfactory condition to undergo the procedure. The anesthesia plan was to use monitored anesthesia care (MAC). Immediately prior to administration of medications, the patient was re-assessed for adequacy to receive sedatives. The heart rate, respiratory rate, oxygen saturations, blood pressure, adequacy of pulmonary ventilation, and response to care were monitored throughout the procedure. The physical status of the patient was re-assessed after the procedure. After I obtained informed consent, the scope was passed under direct vision. Throughout the procedure, the patient's blood pressure, pulse, and oxygen saturations were monitored continuously. The pediatric colonoscope was introduced through the anus and advanced to the cecum, identified by appendiceal orifice and ileocecal valve. The colonoscopy was performed without difficulty. The patient tolerated the procedure well. The quality of the bowel preparation was adequate. The ileocecal valve, appendiceal orifice, and rectum were photographed. Scope In: 10:47:27 AM Scope Withdrawal Time 0 hours 11 minutes 45 seconds Scope Out: 11:09:45 AM Total Procedure Duration Time 0 hours 22 minutes 18 seconds Findings: The perianal and digital rectal examinations were normal. An 8 mm polyp was found in the hepatic flexure. The polyp was sessile. The polyp was removed with a hot snare. Resection and retrieval were complete. Verification of patient identification for the specimen was done. Estimated blood loss was minimal. Multiple small-mouthed diverticula were found in the recto-sigmoid colon, sigmoid colon and descending colon. There was no evidence of diverticular bleeding. The exam was otherwise without abnormality on direct and retroflexion views. Impression: - One 8 mm polyp at the hepatic flexure, removed with a hot snare. Resected and retrieved. - Moderate diverticulosis in the recto-sigmoid colon, in the sigmoid colon and in the descending colon. There was no evidence of diverticular bleeding. - The examination was otherwise normal on direct and retroflexion views. Recommendation: - Discharge patient to home. - Resume previous diet. - Continue present medications. - Await pathology results. - Repeat colonoscopy in 5 years for surveillance. Procedure Code(s): --- Professional --- 41686, Colonoscopy, flexible; with removal of tumor(s), polyp(s), or other lesion(s) by snare technique CPT copyright 2021 [employer]. All rights reserved. The codes documented in this report are preliminary and upon gaming department head review may be revised to meet current compliance requirements. Deo Schmidt DO 06/05/2024 11:16:03 AM This report has been signed electronically. Number of Addenda: 0 Note Initiated On: 06/05/2024 10:36 AM 06/05/24 1116 Date _ Deo Schmidt DO Cosigner Signature: Date (if indicated) CC: Dr. Joy Eid MD; Deo Schmidt DO ~ Date Dictated: 06/05/24 1036 Date Transcribed: Printing Gray Cloth Tender: RF Signed [facility]03-19-2025 Procedure note [facility] Medical Records Department [address] [place] [address] Operative Report - CC Letter MR#: [id number] Acct: [id number] Name: FLORENCIO REZA SATHYA Rep #:[id number] : 1960 64 From: Deo Schmidt DO PCP: Dr. Joy Eid MD Status:REG SD C 06/05/2024 Joy Eid Md Re : Colonoscopy procedure for Florencio Reza Dear [place] This procedure was performed on Wednesday, June 05, 2024. My impressions and recommendations are as follows: Impressions : - One 8 mm polyp at the hepatic flexure, removed with a hot snare. Resected and retrieved. - Moderate diverticulosis in the recto-sigmoid colon, in the sigmoid colon and in the descending colon. There was no evidence of diverticular bleeding. - The examination was otherwise normal on direct and retroflexion views. Recommendations : - Discharge patient to home. - Resume previous diet. - Continue present medications. - Await pathology results. - Repeat colonoscopy in 5 years for surveillance. My findings are described in the full procedure note, which is enclosed. If I can be of further assistance, please feel free to contact me at . Sincerely, Deo Schmidt DO 06/05/2024 11:16:03 AM This report has been signed electronically. 06/05/24 1116 Date _ Deo Schmidt DO Cosigner Signature: Date (if indicated) CC: Dr. Joy Eid MD; Deo Schmidt, ~ Date Dictated: 06/05/24 1036 Date Transcribed: Printing Gray Cloth Tender: RF Signed [facility]03-19-2025 Consult note [facility] Medical Records Department [address] [place] [address] Pre-Anesthesia Evaluation 06/05/24 1031 MR#: [id number] Acct: [id number] Name: FLORENCIO REZA Rep #:[id number] : 1960 64 From: Alok Landry MD PCP: Dr. Joy Eid MD Status:REG SD C Y Race: C Location: [place] [address] ASA Classification* ASA Classification ASA Classification: 2 Assessment & Plan Anesthesia* Anesthesia Assessment Anesthesia Assessment: Discussed sedation and/or anesthesia options, risks, benefits, and alternatives with patient/parents/legal guardian/POA. Questions invited. The patient/parents/legal guardian/POA seems to understand and agrees to proceedwith anesthesia plan. Reviewed the physical assessment, medical history, allergy history and patient home medications list prior to surgery/procedure/anesthetic and documented any changes. Performed airway and anesthesia risk assessments. Anesthesia Type Anesthesia Type: MAC History Source History Obtained from:: Patient and Chart Anesthesia Focused Assessment* Temperature: 98.7 F Pulse Rate: 97 Blood Pressure: 135/80 Respiratory Rate: 17 Pulse Ox: 98 Oxygen Delivery Method: Room Air Airway Assessment Mouth opens: >3 cm Mallampati Score: I Teeth Condition: Caps/Crowns (Patient has couple caps. They are tight.) Neck Range of motion (ROM): Full ROM Focused Labs Anesthesia Preop lab: CBC WBC 6.5 K/mm3 (4.4-11.0) 06/16/22 09:08 06/16/22 RBC 5.26 M/mm3 (4.2-5.4) 06/16/22 09:06/16/22 Hgb 15.1 g/dL (12.0-15.0) H 06/16/22 09: 3 Hct 46.0 % (37-47) 06/16/22 09:08 06/16/22 Plt Count 270 K/mm3 (150-450) 06/16/22 09:08 06/16/22 CHEMISTRY Potassium 3.8 mmol/L (3.5-5.1) 06/16/22 09:08 06/16/22 Sodium 141 mmol/L (136-145) 06/16/22 09:08 06/16/22 Phosphorus 2.8 mg/dL (2.5-4.9) 10/02/18 06:14 10/02/18 BUN 12 mg/dL (7-18) 06/16/22 09:08 06/16/22 Creatinine 0.70 mg/dL (0.55-1.02) 06/16/22 09:08 06/16/22 Glucose 99 mg/dL (74-106) 06/16/22 09:08 06/16/22 COAG Pre-Assessment Diagnosis/Proposed Procedure Planned Operative Procedure(s): CSCOPE Anesthesia History 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 When Was Last Pacemaker Check QUESTION #4 FULL TEXT: You/Your Family Experience fever (hyperthermia) with Anesthesia Last Oral Intake Last Oral intake: Last Oral Intake NPO since 06:00 06/05/24 10:17 Meds taken in AM with sips of Yes 06/05/24 10:17 water? Meds patient instructed to take am of surgery Any additional information?: Yes NPO since: 07:00 (Patient has several water with a.m. 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 Female Yes 06/04/24 10:43 HX of Motion Sickness Yes 06/04/24 10:43 HX of N/V After Surgery Yes 06/04/24 10:43 Non-Smoker Yes 06/04/24 10:43 Duration of Surgery greater No 06/04/24 10:43 than 60 minutes Number of Risk Factors 4 06/04/24 10:43 PONV Score Severe Risk 06/04/24 10:43 Height & Weight Height & Weight: Anesthesia: Height & Weight Height 5 ft 5 in 06/05/24 10:17 Weight: 79 kg 06/05/24 10:17 Body Mass Index (BMI) 29.0 06/05/24 10:17 Respiratory Assessment Respiratory Assessment - seed 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 Has anyone observed you stop No 06/04/24 10:43 breathing during sleep? STOP Results Negative 06/04/24 10:43 QUESTION #5 FULL TEXT : Do you snore loudly (louder than talking or can be heard through closeddoors)? 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 Specify any problems Hx of Preganancy in last 3 N/A 06/04/24 10:43 Months Nurse Filling Out Transfusion NBUCHER 06/04/24 10:43 & Questions: Date: 06/04/24 06/04/24 10:43 Time: 10:45 06/04/24 10:43 Patient unable to answer at this time (ie. 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: /Reproductive Hx- seed cleaning machine operator Hx Now No 06/04/24 10:43 Gestational Age (in weeks): EDC: Hx Hx Para Hx Section SAB No 06/04/24 10:43 [facility] Medical History Wears contact lenses Cancer High cholesterol Gastric reflux Non-smoker PONV (postoperative nausea and vomiting) Family history of rectal cancer Hx of colonic polyp Ovarian cyst, bilateral Hypertension Hyperlipidemia Home Medications ?Medication ?Instructions ?Recorded ?Last Taken ?Type lisinopril 20 mg tablet 20 mg PO BID 03/21/17 History amlodipine 5 mg tablet 10 mg PO DAILY 04/18/1905/18 History ascorbic acid (vitamin C) 500 mg 500 mg PO DAILY 08/2206/04/24 History capsule coenzyme Q10 75 mg capsule (Ultra 75 mg PO DAILY 08/2206/04/24 History CoQ10) mecobalamin (vitamin B12) 1,000 1,000 mcg PO QDAY 03/2006/04/24 History mcg chewable tablet Allergy/AdvReac Type Severity Reaction Status Date / Time Opioids - Morphine Analogues AdvReac Vomiting Verified 06/05/24 10:16 (narcotics) Family History Mother Hypertension Hyperlipidemia Rectal cancer Father Hypertension Hyperlipidemia Surgical History Hx of colonoscopy S/P cholecystectomy S/P bilateral oophorectomy S/P abdominal hysterectomy S/P partial glossectomy S/P laparoscopy Social History household members: spouse current occupational status: retired Smoking Status: Never smoker alcohol intake: never substance use type: does not use caffeine: Yes what type of physical activity do you participate in: walking frequency: 5-6 times per week seatbelt use: always do you feel safe at home: Yes additional social history: - 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 06/05/24 1039 bubba BIRD> Date _ Alok Landry MD Cosigner Signature: Date CC: ~ Signed [facility]03-19-2025 Consult note [facility] Medical Records Department [address] [place] [address] Consultation - GI 06/05/24 1007 MR#: [id number] Acct: [id number] Name: FLORENCIO REZA SATHYA Rep #:[id number] : 1960 64 From: Deo Schmidt DO PCP: Dr. Joy Eid MD Status:REG SD C Location: [place] [address] HPI Consult Data Date of Consult: 06/05/24 HPI Narrative Reason for Consultation: Screening colonoscopy HPI Narrative: FLORENCIO REZA, is a 64 F who presents for screening colonoscopy. She had a colonoscopy back in 2018 that a small benign polyp that was removed. She has not a problem with her bowels. She denies any chest pain or shortness of breath. Overall she is in very good health. [facility] Medical History Wears contact lenses Cancer High cholesterol Gastric reflux Non-smoker PONV (postoperative nausea and vomiting) Family history of rectal cancer Hx of colonic polyp Ovarian cyst, bilateral Hypertension Hyperlipidemia Home Medications ?Medication ?Instructions ?Recorded ?Last Taken ?Type lisinopril 20 mg tablet 20 mg PO BID 03/21/17 History amlodipine 5 mg tablet 10 mg PO DAILY 04/18/19 Unkn own History ascorbic acid (vitamin C) 500 mg 500 mg PO DAILY 08/22 Unknown History capsule coenzyme Q10 75 mg capsule (Ultra 75 mg PO DAILY 08/22 Unknown History CoQ10) mecobalamin (vitamin B12) 1,000 1,000 mcg PO QDAY 03/20 09/11 Unknown History mcg chewable tablet Allergy/AdvReac Type Severity Reaction Status Date / Time Opioids - Morphine Analogues AdvReac Vomiting Verified 06/04/24 10:42 (narcotics) Family History Mother Hypertension Hyperlipidemia Rectal cancer Father Hypertension Hyperlipidemia Surgical History Hx of colonoscopy S/P cholecystectomy S/P bilateral oophorectomy S/P abdominal hysterectomy S/P partial glossectomy S/P laparoscopy Social History household members: spouse current occupational status: retired Smoking Status: Never smoker alcohol intake: never substance use type: does not use caffeine: Yes what type of physical activity do you participate in: walking frequency: 5-6 times per week seatbelt use: always do you feel safe at home: Yes additional social history: - 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 Constitutional Constitutional: Denies fatigue, fever(s), poor appetite, weight gain or weight loss Gastrointestinal Gastrointestinal: Denies belching, bloating, change in bowel habits, change in stool character, chewing difficulty, coffee ground emesis, constipation, cramping, diarrhea, dyspepsia, dysphagia, earlysatiety, excessive flatus, fecal incontinence, heartburn, hematemesis, hematochezia, hemorrhoids, loose stools, melena, nausea, odynophagia, rectal bleeding, tenesmus, vomiting or weight changes Physical Exam Const alert, oriented x3, no apparent distress and healthy appearing General Appearance: cooperative GI normal to inspection, nondistended, normoactive bowel sounds, soft to palpation,non-tender and non-distended Percussion: normal to percussion Rectal Exam: deferred Assessment & Plan Assessment/Plan (1) Encounter for screening for malignant neoplasm of colon: PLAN: She was explained alternatives, risk, benefits including not withstanding bleeding, infection, sepsis, perforation, need emergent surgery and . She will be ASA of 3. 06/05/24 1009 Cosigner Signature (if applicable): CC: Dr. Joy Eid MD~ S[facility] Deo Schmidt [facility] Note Date/Time June 05, 2024 10: 09am [facility] Medical Records Department [address] [place] [address] Consultation - GI 06/05/24 1007 MR#: [id number] Acct: [id number] Name: FLORENCIO REZA Rep #:[id number] : 1960 64 From: Deo Schmidt DO PCP: Dr. Joy Eid MD Status:REG SD C Location: [place] [address] HPI Consult Data Date of Consult: 06/05/24 HPI Narrative Reason for Consultation: Screening colonoscopy HPI Narrative: FLORENCIO REZA, is a 64 F who presents for screening colonoscopy. She had a colonoscopy back in 2018 that a small benign polyp that was removed. She has not a problem with her bowels. She denies any chest pain or shortness of breath. Overall she is in very good health. [facility] Medical History Wears contact lenses Cancer High cholesterol Gastric reflux Non-smoker PONV (postoperative nausea and vomiting) Family history of rectal cancer Hx of colonic polyp Ovarian cyst, bilateral Hypertension Hyperlipidemia Home Medications ?Medication ?Instructions ?Recorded ?Last Taken ?Type lisinopril 20 mg tablet 20 mg PO BID 03/21/17 History amlodipine 5 mg tablet 10 mg PO DAILY 04/18/19 Unkn own History ascorbic acid (vitamin C) 500 mg 500 mg PO DAILY 08/22 Unknown History capsule coenzyme Q10 75 mg capsule (Ultra 75 mg PO DAILY 08/22 Unknown History CoQ10) mecobalamin (vitamin B12) 1,000 1,000 mcg PO QDAY 03/20 09/11 Unknown History mcg chewable tablet Allergy/AdvReac Type Severity Reaction Status Date / Time Opioids - Morphine Analogues AdvReac Vomiting Verified 06/04/24 10:42 (narcotics) Family History Mother Hypertension Hyperlipidemia Rectal cancer Father Hypertension Hyperlipidemia Surgical History Hx of colonoscopy S/P cholecystectomy S/P bilateral oophorectomy S/P abdominal hysterectomy S/P partial glossectomy S/P laparoscopy Social History household members: spouse current occupational status: retired Smoking Status: Never smoker alcohol intake: never substance use type: does not use caffeine: Yes what type of physical activity do you participate in: walking frequency: 5-6 times per week seatbelt use: always do you feel safe at home: Yes additional social history: - 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 Constitutional Constitutional: Denies fatigue, fever(s), poor appetite, weight gain or weight loss Gastrointestinal Gastrointestinal: Denies belching, bloating, change in bowel habits, change in stool character, chewing difficulty, coffee ground emesis, constipation, cramping, diarrhea, dyspepsia, dysphagia, early satiety, excessive flatus, fecal incontinence, heartburn, hematemesis, hematochezia, hemorrhoids, loose stools, melena, nausea, odynophagia, rectal bleeding, tenesmus, vomiting or weight changes Physical Exam Const alert, oriented x3, no apparent distress and healthy appearing General Appearance: cooperative GI normal to inspection, nondistended, normoactive bowel sounds, soft to palpation,non-tender and non-distended Percussion: normal to percussion Rectal Exam: deferred Assessment & Plan Assessment/Plan (1) Encounter for screening for malignant neoplasm of colon: PLAN: She was explained alternatives, risk, benefits including not withstanding bleeding, infection, sepsis, perforation, need emergent surgery and . She will be ASA of 3. 06/05/24 1009 <Electronically signed by Deo Schmidt DO> Cosigner Signature (if applicable): CC: Dr. Joy Eid MD~ Signed [facility] Work Phone: Consult note Author Alok [facility] Note Date/Time June 05, 2024 10: 39am [facility] Medical Records Department [address] [place] [address] Pre-Anesthesia Evaluation 06/05/24 1031 MR#: [id number] Acct: [id number] Name: FLORENCIO REZA Rep #:[id number] : 1960 64 From: Alok Landry MD PCP: Dr. Joy Eid MD Status:REG SD C Y Race: C Location: [place] [address] ASA Classification* ASA Classification ASA Classification: 2 Assessment & Plan Anesthesia* Anesthesia Assessment Anesthesia Assessment: Discussed sedation and/or anesthesia options, risks, benefits, and alternatives with patient/parents/legal guardian/POA. Questions invited. The patient/parents/legal guardian/POA seems to understand and agrees to proceedwith anesthesia plan. Reviewed the physical assessment, medical history, allergy history and patient home medications list prior to surgery/procedure/anesthetic and documented any changes. Performed airway and anesthesia risk assessments. Anesthesia Type Anesthesia Type: MAC History Source History Obtained from:: Patient and Chart Anesthesia Focused Assessment* Temperature: 98.7 F Pulse Rate: 97 Blood Pressure: 135/80 Respiratory Rate: 17 Pulse Ox: 98 Oxygen Delivery Method: Room Air Airway Assessment Mouth opens: >3 cm Mallampati Score: I Teeth Condition: Caps/Crowns (Patient has couple caps. They are tight.) Neck Range of motion (ROM): Full ROM Focused Labs Anesthesia Preop lab: CBC WBC 6.5 K/mm3 (4.4-11.0) 06/16/22 09:08 06/16/22 RBC 5.26 M/mm3 (4.2-5.4) 06/16/22 09:08 06/16/22 Hgb 15.1 g/dL (12.0-15.0) H 06/16/22 09:08 3 Hct 46.0 % (37-47) 06/16/22 09:08 06/16/22 Plt Count 270 K/mm3 (150-450) 06/16/22 09:08 06/16/22 CHEMISTRY Potassium 3.8 mmol/L (3.5-5.1) 06/16/22 09:08 06/16/22 Sodium 141 mmol/L (136-145) 06/16/22 09:08 06/16/22 Phosphorus 2.8 mg/dL (2.5-4.9) 10/02/18 06:14 10/02/18 BUN 12 mg/dL (7-18) 06/16/22 09:08 06/16/22 Creatinine 0.70 mg/dL (0.55-1.02) 06/16/22 09:08 06/16/22 Glucose 99 mg/dL (74-106) 06/16/22 09:08 06/16/22 COAG Pre-Assessment Diagnosis/Proposed Procedure Planned Operative Procedure(s): CSCOPE Anesthesia History 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 When Was Last Pacemaker Check QUESTION #4 FULL TEXT: You/Your Family Experience fever (hyperthermia) with Anesthesia Last Oral Intake Last Oral intake: Last Oral Intake NPO since 06:00 06/05/24 10:17 Meds taken in AM with sips of Yes 06/05/24 10:17 water? Meds patient instructed to take am of surgery Any additional information?: Yes NPO since: 07:00 (Patient has several water with a.m. 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 Female Yes 06/04/24 10:43 HX of Motion Sickness Yes 06/04/24 10:43 HX of N/V After Surgery Yes 06/04/24 10:43 Non-Smoker Yes 06/04/24 10:43 Duration of Surgery greater No 06/04/24 10:43 than 60 minutes Number of Risk Factors 4 06/04/24 10:43 PONV Score Severe Risk 06/04/24 10:43 Height & Weight Height & Weight: Anesthesia: Height & Weight Height 5 ft 5 in 06/05/24 10:17 Weight: 79 kg 06/05/24 10:17 Body Mass Index (BMI) 29.0 06/05/24 10:17 Respiratory Assessment Respiratory Assessment - seed 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 Has anyone observed you stop No 06/04/24 10:43 breathing during sleep? STOP Results Negative 06/04/24 10:43 QUESTION #5 FULL TEXT : Do you snore loudly (louder than talking or can be heard through closed doors)? 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 Specify any problems Hx of Preganancy in last 3 N/A 06/04/24 10:43 Months Nurse Filling Out Transfusion NBUCHER 06/04/24 10:43 & Questions: Date: 06/04/24 06/04/24 10:43 Time: 10:45 06/04/24 10:43 Patient unable to answer at this time (ie. 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: /Reproductive Hx- seed cleaning machine operator Hx Now No 06/04/24 10:43 Gestational Age (in weeks): EDC: Hx Hx Para Hx Section SAB No 06/04/24 10:43 PFS Medical History Wears contact lenses Cancer High cholesterol Gastric reflux Non-smoker PONV (postoperative nausea and vomiting) Family history of rectal cancer Hx of colonic polyp Ovarian cyst, bilateral Hypertension Hyperlipidemia Home Medications ?Medication ?Instructions ?Recorded ?Last Taken ?Type lisinopril 20 mg tablet 20 mg PO BID 03/21/17 History amlodipine 5 mg tablet 10 mg PO DAILY 04/18/1905/18 History ascorbic acid (vitamin C) 500 mg 500 mg PO DAILY 08/2206/04/24 History capsule coenzyme Q10 75 mg capsule (Ultra 75 mg PO DAILY 08/2206/04/24 History CoQ10) mecobalamin (vitamin B12) 1,000 1,000 mcg PO QDAY 03/2006/04/24 History mcg chewable tablet Allergy/AdvReac Type Severity Reaction Status Date / Time Opioids - Morphine Analogues AdvReac Vomiting Verified 06/05/24 10:16 (narcotics) Family History Mother Hypertension Hyperlipidemia Rectal cancer Father Hypertension Hyperlipidemia Surgical History Hx of colonoscopy S/P cholecystectomy S/P bilateral oophorectomy S/P abdominal hysterectomy S/P partial glossectomy S/P laparoscopy Social History household members: spouse current occupational status: retired Smoking Status: Never smoker alcohol intake: never substance use type: does not use caffeine: Yes what type of physical activity do you participate in: walking frequency: 5-6 times per week seatbelt use: always do you feel safe at home: Yes additional social history: - 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 06/05/24 1039 <Electronically signed by Alok mac MD> Date _ Alok Landry MD Cosigner Signature: Date CC: ~ Signed [facility] Work Phone: Consult note Author Haider Muhammad [facility] Note Date/Time June 05, 2024 11: 16am [facility] Medical Records Department [address] [place] [address] Anesthesia Postop Eval I 06/05/24 1039 MR#: [id number] Acct: [id number] Name: FLORENCIO REZA SATHYA Rep #:[id number] : 1960 64 From: Haider Muhammad CRNA PCP: Dr. Joy Eid MD Status:REG SD C Y Race: C Location: [place] [address] Anesthesia: Postop Eval I Current Vital Signs Temperature: 97.1 F Pulse Rate: 66 Blood Pressure: 95/59 Respiratory Rate: 20 Pulse Ox: 95 Oxygen Delivery Method: Room Air Assessment Airway patent: Yes Spontaneous unlabored respirations: Yes Mental status: Asleep nausea: No Vomiting: No Anesthesia Complication: No Fluid Hydration Crystalloid volume administer (ml): 30 Total IV fluid infused: 30 Progress Note Anesthesia document: Postop Eval 1 completed: Yes 06/05/24 1116 <Electronically signed by Haider santos CRNA> Date _ Haider Eason Signature: Date CC: ~ Signed [facility] Work Phone: Evaluation noteNo assessment information available [facility] Work Phone: Evaluation note* Diagnosis Onset Date Resolution Status Atrophic vaginitis acute White coat syndrome with diagnosis of hypertension acute Encounter for routine gynecological examination noneactive [facility] Work Phone: Reason for referral (narrative)No reason for referral information [facility]WC[facility] Work Phone: Chief Complaint and Reason for Visit Chief Complaint Admit Date SCREENING June 05, 2024 8:0 0am Reason for Visit Admit Date Encounter for screening for malignant ne oplasm of colon June 05, 2024 9:36am Chief Complaint SCREENING Annual (PATTERNMAKER BENCH) Chief Complaint EORDER Chief Complaint EORDER SCREENING Annual (PATTERNMAKER BENCH) Reason for Visit Atrophic vaginitis White coat syndrome with diagnosis of hypertension Encounter for routine gynecological examination Chief Complaint Admit Date Amb Documentation April 04, 2024 1 1:48am Family History No Family History Records Found Relationship Condition Age at Onset Recorded Date/T maryse mother Hypertension Unknown Hyperlipidemia Unknown Malignant neoplasm of rectum Unknown father Hypertension Unknown Advance Directives No Advanced Directives Records Found Advance Directive Response Recorded Date/ Time Living Will No March 21 8 9:26am Power of Garbage Stoker No March 21 9:26am Advance Directive Response Recorded Date/ Time Living Will Yes June 04, 2024 10:43am Power of Garbage Stoker Yes June 04 10:43am Name of Medical Power of Garbage Stoker HERBIE - HUSBAN D June 04, 2024 10:43am Advance Directive Response Recorded Date/ Time Living Will Yes June 04, 2024 10:43am Do you have a Healthcare Power of Garbage Stoker? Yes June 04, 2024 10:43am Name of Medical Power of Garbage Stoker HERBIE - HUSBAN D June 04, 2024 10:43am Summary Purpose Additional Source Comments Goals (unrecognized section and content) Goals may be documented in a n alternate sectionGoals may be documented in an alternate sectionGoals may be documented in an alternate section Care Teams (unrecognized sec tion and content) Team Status: Active Member Role Status Dates Dr. Anurag Verdugo MD Family Provider Active Adina Lee , DO Primary Care Provider Active Team Status: Inactive Member Role Status Dates Adina Lee DO Primary Care Provi ashley, Attending Provider, Referring Provider Active Team Status: Inactive Member Role Status Dates Dr. Anurag Shah MD Referring Provider Active Sarah Reed OUTPATIENT DIETITIAN, OUTPATIENT DIETITIAN-C Attending Provider Active Adina Lee DO Primary Care Provider Active Team Status: Inactive Member Role Status Dates Adina Lee DO Primary Care Provider Active Sarah Reed OUTPATIENT DIETITIAN, OUTPATIENT DIETITIAN-C Attending Provider, Referring Provider Active Team Status: Active Member Role Status Dates Joy Eid MD Primary Care Provider Active Team Status: Active Member Role Status Dates Sarah Reed OUTPATIENT DIETITIAN, OUTPATIENT DIETITIAN-C Primary Care Provider Active Start: April 04, 2024 On License Of [facility] Attending Provider Active Start: [facility] 2024 Team Status: Inactive Member Role Status Dates Dr. Deo Schmidt DO Attending Provider Active Start: June 05, 2024 End: June 05, 2024 Joy Eid MD Primary Care Provider Active St art: June 05, 2024 End: June 05, 2024 Joy Eid MD Referring Provider Active Start : June 05, 2024 End: June 05, 2024 Team Status: Active Member Role Status Dates Dr. Deo Schmidt DO Attending Provider Active Start: June 05, 2024 Dr. Deo Schmidt DO Other Provider Active St art: June 05, 2024 Joy Eid MD Primary Care Provider Active St art: June 05, 2024 Joy Eid MD Referring Provider Active Start : June 05, 2024 Team Status: Active Member Role Status Dates Joy Eid MD Primary Care Provider Active St art: June 05, 2024 Dr. Vidal He MD Attending Provider Active Start: June 05, 2024 Dr. Vidal He MD Referring Provider Active Start: June 05, 2024 Team Status: Inactive Member Role Status Dates Joy Eid MD Primary Care Provider Active St art: August 07, 2024 End: August 07, 2024 Joy Eid MD Attending Provider Active Start : August 07, 2024 End: August 07, 2024 Joy Eid MD Referring Provider Active Start : August 07, 2024 End: August 07, 2024 INFORMATION SOURCE (unrecogn ized section and content) DATE CREATED AUTHOR 08/13/2024 [facility] FOR RECORDS PERTAINING TO PATIENTS WHO ARE OR HAVE BEEN ENROLLED IN A CHEMICAL DEPENDENCY/SUBSTANCEABUSE PROGRAM, SOME INFORMATION MAY BE OMITTED. This clinical summary was aggregated from multiple sources. Caution should be exercised in using it in the provision of clinical care. This summary normalizes information from multiple sources, and as a consequence, information in this document may materially change the coding, format and clinical context of patient data. In addition, data may be omitted in some cases. CLINICAL DECISIONS SHOULD BE BASED ON THE PRIMARY CLINICAL RECORDS. [facility] [employer] [facility]. provides no warranty or guarantee of the accuracy or completeness of information in this document.
--- NOTE | 2024-09-12 07:30 | BI_ITS ---
EXAM: SCRN MAMM (CAD)W/VIELKA BILAT DATE: 09/12/2024 CLINICAL HISTORY: F, Age 64 y/o , SCREENING FOR BREAST CANCER Noncontributory. TECHNIQUE: SCRN MAMM (CAD)W/VIELKA BILAT COMPARISON: Prior exam(s) dated September 12, 2023.. FINDINGS: TISSUE DENSITY: The breasts are almost entirely fatty. Bilateral Breast Mammographic Findings: No significant masses, calcifications or other abnormalities are identified. No suspicious masses, areas of developing architectural distortion, or suspicious calcifications. There has been no significant interval change. BI/SCRN MAMM (CAD)W/VIELKA BILAT IMPRESSION: Stable examination. OVERALL FINAL ASSESSMENT BI-RADS 1: NEGATIVE. RECOMMEND ANNUAL MAMMOGRAPHIC SCREENING. RECOMMENDATION: Routine annual follow-up in 1 Year A letter with findings and recommendations will be mailed to the patient. Reading Location: [id number]
== END | disposition home or self-care (01) ==
LOC: OPBI 07:21
PROVIDERS: PCP Family Medicine; Referring Provider Nurse Practitioner Women's Health; Visit Provider Nurse Practitioner Women's Health
DX: Z12.31 Encounter for screening mammogram for malignant neoplasm of breast (principal)
CPT/HCPCS: 77063; 77067

== ENCOUNTER → 2024-10-15 | Outpatient (CLI) | payer SELFPAY ==
[2024-10-15 10:22] LABS: AST(SGOT) 47 U/L (<=31); Alanine Aminotransfer ALT/SGPT 60 U/L (<=34); Alkaline Phosphatase 120 U/L (35-104)
--- OUTSIDE RECORDS SUMMARY | 2024-10-15 12:14 | XMS RPT_ITS | CCD ---
Author Organization [facility] CliniSypr Care Team Providers Care Forestry Extension Specialist Name Role Phone Dr. Anurag Verdugo Referring Provider [phone] Derek ELECTRICIAN APPRENTICE POWERHOUSE, ELECTRICIAN APPRENTICE POWERHOUSE-C Sarah Attending Provider Dr. Anurag Shah Primary Care Provider Dr. Anurag Shah Referring Provider Derek ELECTRICIAN APPRENTICE POWERHOUSE, ELECTRICIAN APPRENTICE POWERHOUSE-C Sarah Attending Provider DO Adina Lee Primary Care Provider [phone] Derek ELECTRICIAN APPRENTICE [employer]OWERHOUSE-C, Sarah Primary Care Provider Lamar Deluna Attending Provider Unavailable Dr. Deo Schmidt DO Attending Provider Stanton BIRD, Joy Primary Care Provider Joy Eid MD Referring Provider Friend Dr. Deo ARNDT Other Provider Joy Eid MD Primary Care Provider [phone] Vidal He MD Attending Provider Dr. Vidal He MD Referring Provider Joy Eid MD Attending Provider Derek ELECTRICIAN APPRENTICE [employer]OWERHOUSE-C, Sarah Attending Provider [place] ELECTRICIAN APPRENTICE POWERHOUSE-C, Sarah Referring Provider Vidal He Attending Unavailable Vidal He Referring Unavailable Joy Eid Primary Care Unavailable [place] ELECTRICIAN APPRENTICE [employer]OWERHOUSE, Sarah Primary Care Unavailable Lamar Deluna Attending Unavailable Stanton Chalashtyn Primary Care Unavailable Joy Eid Referring Unavailable Deo Schmidt Consulting Unavailable Deo Schmidt Attending Unavailable Stanton, Chalon Primary Care Unavailable Stanton, Chalon Referring Unavailable Friend, Deo Attending Unavailable Stanton, Joy Attending Unavailable Stanton, Chalon Referring Unavailable Stanton, Chalon Primary Care Unavailable [place] ELECTRICIAN APPRENTICE [employer]OWERHOUSE, Sarah Attending Unavailable Derek ELECTRICIAN APPRENTICE [employer]OWERHOUSE, Sarah Referring Unavailable Stanton, Chalon Primary Care Unavailable Derek ELECTRICIAN APPRENTICE [employer]OWERHOUSE, Sarah Attending Unavailable [place] ELECTRICIAN APPRENTICE [employer]OWERHOUSE, Sarah Referring Unavailable Stanton, Chalon Primary Care Unavailable Joy Eid MD Primary Care Provider [phone] Joy Eid MD Referring Provider [phone] Allergies Allergy Classification Reported Allergen(s) Allergy Type Date of Onset Reaction(s) Facility (5 sources) Opioids - Morphine Analogues Propensity to adverse reactions 5 [facility] (1 source) Opioids - Morphine Analogues Drug allergy (disorder) 5 [facility] Repository Medications Current Medications Medication Drug Class(es) Dates Sig (Normalized) Sig (Original) amLODIPine 5 mg oral tablet (16 sources) Dihydropyridine Calcium Channel Tucker Start: 04-18-2019 [...] 9:31am ascorbic acid 500 mg oral capsule (6 sources) Vitamin C Start: 08-22-2022 take 1 capsule by mouth once daily Ascorbic Acid (Vitamin C) 500 mg capsule Active 500 mg PO DAILY August 22, 2022 12:00am Start: 08-22-2022 Ascorbic Acid (Vitamin C) Active MG PO August 22, 2022 12:00am estradiol 0.1 mg/ml vaginal cream (20 sources) Estrogen Start: 09-12-2024 Estradiol 0.01 % (0.1 mg/gram) cream Active 0 VAGINAL .COMPLEX September 12, 2024 12:00am small amount vaginally every other day X 4 weeks then twice a week/compounded; Start: 08-12-2020 End: 08-17-2021 apply 1 dose transdermal route two times weekly, then apply 1 dose transdermal route once Estradiol 0.025 mg/24 hr patch semiweekly Discontinued 1 NMA TD TWICE A WEEK 10 06August 12, 2020 12:00am August 17, 2021 8:38am [...] End: 08-12-2020 Estradiol 0.0375 mg/24 hr pa tch semiweekly Discontinued 1 NMA TD TWICE A WEEK 24 April 18, 2019 1:00am August 12, 2020 8:15am Start: 04-18-2019 End: 08-12-2020 apply 1 dose transdermal route two times weekly Estradiol Discontinued 1 PATCH TD TWICE A WEEK April 18, 2019 1:00am August 12, 2020 8:15am Start: 03-21-2017 End: 04-18-2019 apply 0.05 mg transdermal route every hour Estradiol 0.05 mg/24 hr patch semiweekly Discontinued 0.05 mg TD .2X/WEEK 24 April 18, 2019 9:46am April 18, 2019 9:51am lisinopril 20 mg oral tablet (8 sources) Angiotensin Converting Enzyme Inhibitor Start: 03-21-2017 take 1 tablet by mouth twice daily Lisinopril 20 MG tablet Active 20 mg PO TWICE A DAY March 21, 2017 1:00am mecobalamin 1 mg chewable tablet (5 sources) Start: 04-04-2024 take 1 tablet by mouth once daily Mecobalamin (Vitamin B12) 1,000 mcg tablet,chewable Active 1000 ug PO daily April 04, 2024 1:00am ubidecarenone 75 mg oral capsule (6 sources) Start: 08-22-2022 Coenzyme Q10 (Ultra Coq10) 75 mg capsule Active 75 mg PO DAILY August 22, 2022 12:00am Completed/Discontinued Medications Medication Drug Class(es) Dates Sig (Normalized) Sig (Original) atorvastatin 40 mg oral tablet (20 sources) HMG-CoA Reductase Inhibitor Start: 08-17-2021 End: [...] 18, 2019 1:00am August 12, 2020 8:08am Problems Problem Classification Problem Date Documented Da te Episodic/Chronic Abdominal pain (6 sources) Abdominal pain; Translations: [Unspecified abdominal pain] 03-23-2017 Episodic Administrative/social admission (9 sources) Patient encounter status; Translations: [Other specified counseling] 08-12-2020 Episodic Anxiety disorders (8 sources) Anxiety; Translations: [Anxiety disorder, unspecified] 08-12-2020 Chronic Disorders of lipid metabolism (8 sources) Hyperlipidemia; Translations: [Hyperlipidemia, unspecified] 04-18-2019 Chronic Essential hypertension (18 sources) Hypertensive disorder; Translations: [Essential (primary) hypertension] Onset: 08-12-2024 08-12-2020 Chronic Comment on above: monitors at home Menopausal disorders (9 sources) Atrophic vaginitis; Translations: [Postmenopausal atrophic vaginitis] 08-22-2022 Chronic Comment on above: considering estradio l cream as sx worsening. Using coconut oil compounded estriol c ream Other screening for suspected conditions (not mental disorders or infectious disease) (3 sources) Encounter for screening mammogram for malignant neoplasm of breast; Translations: [Encounter for screening for malignant neoplasm of colon] Onset: 06-18-2024 Episodic Results Test Name Value Interpretation Reference Range Facility Breast imaging reportOrdered By: Kurtis Ruff on 09-17-2024 Study report [facility] Imaging Services [address] [place], [place] [id number] SCRN MAMM (CAD)W/VIELKA BILAT MR#: [id number] Acct: [id number] Name: FLORENCIO REZA SATHYA Rep #: [id number] : 1960 F 64 From: Deep Ruff MD PCP: Dr. Joy Eid MD Status: REG CL I Study:SCRN MAMM (CAD)W/VIELKA BILAT Date of Exa m: 09/12/24 Exam# [id number] Ordering Dr: Sarah Reed NP EXAM: SCRN MAMM (CAD)W/VIELKA BILAT DATE: 09/12/2024 CLINICAL HISTORY: F, Age 64 y/o , SCREENING FOR BREAST CANCER Noncontributory. TECHNIQUE: SCRN MAMM (CAD)W/VIELKA BILAT COMPARISON: Prior exam(s) dated September 12, 2023.. FINDINGS: TISSUE DENSITY: The breasts are almost entirely fatty. Bilateral Breast Mammographic Findings: No significant masses, calcifications or other abnormalities are identified. No suspicious masses, areas of developing architectural distortion, or suspicious calcifications. There has been no significant interval change. BI/SCRN MAMM (CAD)W/VIELKA BILAT IMPRESSION: Stable examination. OVERALL FINAL ASSESSMENT BI-RADS 1: NEGATIVE. RECOMMEND ANNUAL MAMMOGRAPHIC SCREENING. RECOMMENDATION: Routine annual follow-up in 1 Year A letter with findings and recommendations will be mailed to the patient. Reading Location: [id number] CC: SHAYLA Reed; Dr. Joy Eid MD ~ Senior International Tax Manager: Signed [facility] Telephone Lineworker Office Visit Reporton 09-12-2024 Telephone Lineworker Office Visit Report [facility] [address], [address] [place] [address] OFFICE VISIT Date of Service: 09/12/24 MR#: [id number] Acct: [id number] Name: FLORENCIO REZA SATHYA Rep #: [id number] : 1960 Provider: SHAYLA la Age/Sex: 64/F Location: [facility] Status: Signed Intake Vital Signs 09/12/23 08:05 06/05/24 10:17 09/12/24 08:06 09/12/24 08:10 Height 5 ft 5 in 5 ft 5 in 5 ft 5 in 5 ft 5 in Weight: 167 lb 8 oz BMI 27.8 BP 132/84 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) Chief Complaint: Annual Medical Billing Associate Required: No Is patient in pain?: No Allergies Opioids - Morphine Analogues (narcotics) Adverse Reaction (Verified 09/12/24 08:14) Vomiting Medications ???Medication ???Instructions ???Recorded ???Confirmed ???Type lisinopril 20 mg tablet 20 mg PO BID 03/21/17 09/12/24 His tory amlodipine 5 mg tablet 10 mg PO DAILY 04/18/19 09/12/24 H istory ascorbic acid (vitamin C) 500 mg 500 mg PO DAILY 08/22/22 09/12/24 History capsule coenzyme Q10 75 mg capsule (Ultra 75 mg PO DAILY 08/22/22 09/12/24 History CoQ10) mecobalamin (vitamin B12) 1,000 1,000 mcg PO QDAY 04/04/24 5 History mcg chewable tablet estradiol 0.01% (0.1 mg/gram) See Rx Instructions vaginal 09/12/24 History vaginal cream .COMPLEX Is last menstrual period known: No Post menopausal: Yes Patient : No : No Control Method: Hysterectomy PFSH Medical History Wears contact lenses Cancer High cholesterol Gastric reflux Non-smoker PONV (postoperative nausea and vomiting) Family history of rectal cancer Hx of colonic polyp Ovarian cyst, bilateral Hypertension Hyperlipidemia Surgical History Hx of colonoscopy S/P cholecystectomy S/P bilateral oophorectomy S/P abdominal hysterectomy S/P partial glossectomy S/P laparoscopy Family History Mother Hypertension Hyperlipidemia Rectal cancer Father Hypertension Hyperlipidemia Social History household members: spouse current occupational status: retired Smoking Status: Never smoker alcohol intake: never substance use type: does not use caffeine: Yes what type of physical activity do you participate in: walking frequency: 5-6 times per week seatbelt use: always do you feel safe at home: Yes additional social history: - 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 Vaginal dryness more problematic and ready to try estrogen cream Last PAP: hyst History of abnormal PAP: no Last mammogram: today pending History of abnormal mammogram: no Colon cancer screenin Other preventative health care screenings: Stanton Female Reproductive History Questions: metorrhagia: No, sexually active: Yes, dyspareunia: Yes and PCB: No ROS Const Constitutional: Denies fatigue, weight gain [...] oriented to person and oriented to place HENVA Head: normal to inspection Neck Neck: normal [...] Pelvic Support: normal Neuro General: patient alert a (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 Normal [facility] SCRN MAMM (CAD)W/VIELKA BILATo n 09-12-2024 SCRN MAMM (CAD)W/VIELKA BILAT [facility] Imaging Services [address] [place], [place] [id number] SCRN MAMM (CAD)W/VIELKA BILAT MR#: [id number] Acct: [id number] Name: FLORENCIO REZA Rep #: [id number] : 1960 F 64 From: Kurtis kincaid MD PCP: Dr. Joy Eid MD Status: REG CLI Study: SCRN MAMM (CAD)W/VIELKA BILAT Date of Exam: 08/19 09/11 Exam# [id number] Ordering Dr: Sarah Reed NP ELECTRICIAN APPRENTICE POWERHOUSE -C EXAM: SCRN MAMM (CAD)W/VIELKA BILAT DATE: 09/12/2024 CLINICAL HISTORY: F, Age 64 y/o , SCREENING FOR BREAST CANCER Noncontributory. TECHNIQUE: SCRN MAMM (CAD)W/VIELKA BILAT COMPARISON: Prior exam(s) dated September 12, 2023.. FINDINGS: TISSUE DENSITY: The breasts are almost entirely fatty. Bilateral Breast Mammographic Findings: No significant masses, calcifications or other abnormalities are identified. No suspicious masses, areas of developing architectural distortion, or suspicious calcifications. There has been no significant interval change. BI/SCRN MAMM (CAD)W/VIELKA BILAT IMPRESSION: Stable examination. OVERALL FINAL ASSESSMENT BI-RADS 1: NEGATIVE. RECOMMEND ANNUAL MAMMOGRAPHIC SCREENING. RECOMMENDATION: Routine annual follow-up in 1 Year A letter with findings and recommendations will be mailed to the patient. Reading Location: [id number] CC: ELECTRICIAN APPRENTICE POWERHOUSE-Breana Reed; Dr. Joy Eid MD Senior International Tax Manager: Signed Normal [facility] Absolute lymphocyte countOrd ered By: Joy Eid on 08-07-2024 Lymphocytes Auto (Unsp spec) [#/Vol] 2.46 10*3/uL 0.83-4.51 [facility] Absolute neutrophil countOrd ered By: Joy Eid on 08-07-2024 Neutrophils (Bld) [#/Vol] 3.4 10*3/uL 2.0-7.7 [facility] Anion gap in Serum or Plasma Ordered By: Joy Eid on 08-07-2024 Anion gap [Moles/Vol] 12 mmol/L 5- [facility] Automated lymphocyte count a s percentage of total leukocytesOrdered By: Joy Eid on 08-07-2024 Lymphocytes/100 WBC Auto (Unsp spec) 38.0 % - [facility] BUN/creatinine ratioOrdered By: [facility] Memorialashtyn Stanton on 08-07-2024 Urea nitrogen/Creatinine [Mass ratio] 20.0 mg/mg 10- [facility] Basophil percentageOrdered B y: Joy Eid on 08-07-2024 Basophils/100 WBC (Bld) 0.9 % 0-1 [facility] Bilirubin, totalOrdered By: [facility] Memorialashtyn Eid on 08-07-2024 Bilirubin [Mass/Vol] 0.57 mg/dL 0.00-1.30 [facility] CBC W/Diff, Automatedon 07-19 Absolute Lymph 2.46 X10 3/uL Normal 0.83-4.51 [facility] Comment on above: Performed By: #### L 100.0100, L500.4050, L500.4100 #### [facility] Laboratory [address] [place], [address] Absolute Neut 3.4 X10 3/uL Normal 2.0-7.7 [facility] Comment on above: Performed By: #### L 100.0100, L500.4050, L500.4100 #### [facility] [address] [place], [address] Basophils/100 WBC (Bld) 0.9 % Normal 0-1 [facility] Comment on above: Performed By: #### L 100.0100, L500.4050, L500.4100 #### [facility] [address] [place], [address] Eosinophils/100 WBC (Bld) 1.7 % Normal 0-5 [facility] Comment on above: Performed By: #### L 100.0100, L500.4050, L500.4100 #### [facility] Laboratory [address] [place], [address] Erythrocyte distribution width (RBC) [Ratio] 12.1 % Normal 11.6-14.6 [facility] Comment on above: Performed By: #### L 100.0100, L500.4050, L500.4100 #### [facility] [address] [place], [address] Hematocrit (Bld) [Volume fraction] 46.1 % Normal 37-47 [facility] Comment on above: Performed By: #### L 100.0100, L500.4050, L500.4100 #### [facility] Laboratory [address] [place], [address] Hemoglobin (Bld) [Mass/Vol] 15.7 g/dL High 12.0-15.0 [facility] Comment on above: Performed By: #### L 100.0100, L500.4050, L500.4100 #### [facility] [address] [place], [address] IG% 0.200 Normal 0.0-0.9 [facility] Comment on above: Result Comment: IG% - Immature Granulocytes (promyelocytes, myelocytes and metamyelocytes) > 1% indicates that a LEFT SHIFT is Present. Performed By: #### L 100.0100, L500.4050, L500.4100 #### [facility] [address] [place], [address] Lymphocytes/100 WBC (Bld) 38.0 % Normal 19-41 [facility] Comment on above: Performed By: #### L 100.0100, L500.4050, L500.4100 #### [facility] [address] [place], [address] MCH (RBC) [Entitic mass] 29.2 pg Normal 27.0-32.0 [facility] Comment on above: Performed By: #### L 100.0100, L500.4050, L500.4100 #### [facility] [address] [place], [address] MCHC (RBC) [Mass/Vol] 34.1 g/dL Normal 32-36 [facility] Comment on above: Performed By: #### L 100.0100, L500.4050, L500.4100 #### [facility] [address] [place], [address] MCV (RBC) [Entitic vol] 85.7 fL Normal 81-99 [facility] Comment on above: Performed By: #### L 100.0100, L500.4050, L500.4100 #### [facility] [address] [place], [address] Monocytes/100 WBC (Bld) 6.3 % Normal 0-10 [facility] Comment on above: Performed By: #### L 100.0100, L500.4050, L500.4100 #### [facility] [address] [place], [address] Neutrophils/100 WBC (Bld) 52.9 % Normal 47-70 [facility] Comment on above: Performed By: #### L 100.0100, L500.4050, L500.4100 #### [facility] [address] [place], [address] Nucleated RBC (Bld) [#/Vol] 0 10*3/uL Normal 0-5 [facility] Comment on above: Performed By: #### L 100.0100, L500.4050, L500.4100 #### [facility] [address] [place], [address] Platelet mean volume (Bld) [Entitic vol] 11.2 fL Normal 6.2-12.0 [facility] Comment on above: Performed By: #### L 100.0100, L500.4050, L500.4100 #### [facility] [address] [place], [address] Platelets (Bld) [#/Vol] 302 10*3/uL Normal 150-450 [facility] Comment on above: Performed By: #### L 100.0100, L500.4050, L500.4100 #### [facility] [address] [place], [address] RBC (Bld) [#/Vol] 5.38 10*6/uL Normal 4.2-5.4 [facility] Comment on above: Performed By: #### L 100.0100, L500.4050, L500.4100 #### [facility] [address] [place], [address] RDW SD 37.8 fl Normal 35.1-43.9 [facility] Comment on above: Performed By: #### L 100.0100, L500.4050, L500.4100 #### [facility] [address] [place], [address] WBC (Bld) [#/Vol] 6.5 10*3/uL Normal 4.4-11.0 [facility] Comment on above: Performed By: #### L 100.0100, L500.4050, L500.4100 #### [facility] [address] [place], [address] Calculated very low density lipoprotein (VLDL) cholesterol measurementOrdered By: Joy Eid on 08-07-2024 Calculated very low density lipoprotein (VLDL) cholesterol measurement 30 mg/dL 5-40 [facility] Carbon dioxide, total [Moles /volume] in Central venous bloodOrdered By: Joy Eid on 08-07-2024 CO2 [Moles/Vol] 25.4 mmol/L 21.0-32.0 [facility] Chloride assayOrdered By: Peace Eid on 08-07-2024 Chloride [Moles/Vol] 104 mmol/L 98-108 [facility] Comprehensive Metabolic Prof ilon 08-07-2024 Albumin [Mass/Vol] 4.4 g/dL Normal 3.4-4.8 [facility] Comment on above: Performed By: #### L 100.0100, L500.4050, L500.4100 #### [facility] [address] [place], [address] Albumin/Globulin [Mass ratio] 1.4 {ratio} Normal 0.9-2.4 [facility] Comment on above: Performed By: #### L 100.0100, L500.4050, L500.4100 #### [facility] [address] [place], [address] ALK PHOS 114 U/L High 35-104 [facility] Comment on above: Performed By: #### L 100.0100, L500.4050, L500.4100 #### [facility] [address] [place], [address] ALT [Catalytic activity/Vol] 98 U/L High <=34 [facility] Comment on above: Performed By: #### L 100.0100, L500.4050, L500.4100 #### [facility] [address] [place], [address] AST [Catalytic activity/Vol] 60 U/L High <=31 [facility] Comment on above: Performed By: #### L 100.0100, L500.4050, L500.4100 #### [facility] [address] [place], [address] Bilirubin [Mass/Vol] 0.57 mg/dL Normal 0.00-1.30 [facility] Comment on above: Performed By: #### L 100.0100, L500.4050, L500.4100 #### [facility] [address] [place], [address] BUN/CRE 20.0 RATIO Normal 10-20 [facility] Comment on above: Performed By: #### L 100.0100, L500.4050, L500.4100 #### [facility] [address] [place], [address] Calcium [Mass/Vol] 9.6 mg/dL Normal 7.6-11.0 [facility] Comment on above: Performed By: #### L 100.0100, L500.4050, L500.4100 #### [facility] [address] [place], [address] Chloride [Moles/Vol] 104 mmol/L Normal 98-108 [facility] Comment on above: Performed By: #### L 100.0100, L500.4050, L500.4100 #### [facility] [address] [place], [address] CO2 [Moles/Vol] 25.4 mmol/L Normal 21.0-32.0 [facility] Comment on above: Performed By: #### L 100.0100, L500.4050, L500.4100 #### [facility] [address] [place], [address] Creatinine [Mass/Vol] 0.70 mg/dL Normal 0.70-1.20 [facility] Comment on above: Performed By: #### L 100.0100, L500.4050, L500.4100 #### [facility] [address] [place], [address] GAP 12 Normal 5-15 [facility] Comment on above: Performed By: #### L 100.0100, L500.4050, L500.4100 #### [facility] [address] [place], [address] GFR/1.73 sq M.predicted among non-blacks MDRD (S/P/Bld) [Vol rate/Area] 98 mL/min/{1.73_m2} Normal >60 [facility] Comment on above: Result Comment: mL/m in/1.73m2 CKD-EPI Creatinine Equation (2020) Performed By: #### L 100.0100, L500.4050, L500.4100 #### [facility] [address] [place], [address] Globulin (S) [Mass/Vol] 3.1 g/dL Normal 2.2-4.2 [facility] Comment on above: Performed By: #### L 100.0100, L500.4050, L500.4100 #### [facility] [address] [place], [address] Glucose [Mass/Vol] 103 mg/dL High 70-99 [facility] Comment on above: Performed By: #### L 100.0100, L500.4050, L500.4100 #### [facility] [address] [place], [address] Potassium [Moles/Vol] 4.0 mmol/L Normal 3.3-5.1 [facility] Comment on above: Performed By: #### L 100.0100, L500.4050, L500.4100 #### [facility] [address] [place], [address] Sodium [Moles/Vol] 142 mmol/L Normal 133-145 [facility] Comment on above: Performed By: #### L 100.0100, L500.4050, L500.4100 #### [facility] [address] [place], [address] T PROT 7.5 g/dL Normal 5.9-8.4 [facility] Comment on above: Performed By: #### L 100.0100, L500.4050, L500.4100 #### [facility] [address] [place], [address] Urea nitrogen [Mass/Vol] 14 mg/dL Normal 4-19 [facility] Comment on above: Performed By: #### L 100.0100, L500.4050, L500.4100 #### [facility] [address] [place], [address] Eosinophil percentageOrdered By: Joy Eid on 08-07-2024 Eosinophils/100 WBC (Bld) 1.7 % 0-5 [facility] Erythrocyte distribution wid th ratioOrdered By: [facility] Memorial[facility]htyn Stanton on 08-07-2024 Erythrocyte distribution width (RBC) [Ratio] 12.1 % 11.6-14.6 [facility] Erythrocyte distribution wid th standard deviationOrdered By: [facility] Hospital[facility] on 08-07-2024 Erythrocyte distribution width (RBC) [Ratio] 37.8 fl 35.1-43.9 [facility] Glomerular filtration rate ( GFR) estimation/1.73 sq m using serum, plasma, or whole bOrdered By: [facility] Memorialashtyn Stanton on 08-07-2024 GFR/1.73 sq M.predicted among non-blacks MDRD (S/P/Bld) [Vol rate/Area] 98 mL/min/{1.73_m2} >60 [facility] Comment on above: mL/min/1.73m2 CKD-EP I Creatinine Equation (2020) Hematocrit Auto (Bld) [Volum e fraction]Ordered By: Joy Eid on 08-07-2024 Hematocrit (Bld) [Volume fraction] 46.1 % 37-47 [facility] Hemoglobin measurementOrdere d By: Joy Eid on 08-07-2024 Hemoglobin (Bld) [Mass/Vol] 15.7 g/dL High 12.0-15.0 [facility] Immature granulocytes/100 WB C Auto (Bld)Ordered By: Joy Eid on 08-07-2024 Immature granulocytes/100 WBC (Bld) 0.200 % 0.0-0.9 [facility] Comment on above: IG% - Immature Granu locytes (promyelocytes, myelocytes and metamyelocytes) > 1% indicates that a LEFT SHIFT is Present. LDL calc ser/plasOrdered By: Joy Eid on 08-07-2024 Cholesterol in LDL [Mass/Vol] 151 mg/dL [facility] Comment on above: Rsxrjgurfm=269-935 m g/dL & Higher Kvih=104 mg/dL or greater Laboratory - Chemistry and C hemistry - challengeOrdered By: Joy Eid on 08-07-2024 AST [Catalytic activity/Vol] 60 U/L High <32 [facility] Lipid Profileon 08-07-2024 CHOL:HDL 4.15 Normal [facility] Comment on above: Performed By: #### L 100.0100, L500.4050, L500.4100 #### [facility] [address] [place], [address] Cholesterol [Mass/Vol] 238 mg/dL High <=200 [facility] Comment on above: Result Comment: Chol esterol level, Desirable <200 mg/dL Borderline high cholesterol 200-239 mg/dL High cholesterol >=240 mg/dL Recommendations of the NCEP Adult Treatment Panel for the following risk-cutoff thresholds for the [place] population. Performed By: #### L 100.0100, L500.4050, L500.4100 #### [facility] [address] [place], [address] Cholesterol in HDL [Mass/Vol] 57 mg/dL Normal [facility] Comment on above: Result Comment: [place] on[place] Cholesterol Education Program (NCEP) guidelines: <40 mg/dL: Low HDL-cholesterol (major risk factor for CHD) >= 60 mg/dL: High HDL-cholesterol (negative risk factor for CHD) HDL-cholesterol is affected by a number of factors, e.g. smoking, exercise, hormones, sex and age. Performed By: #### L 100.0100, L500.4050, L500.4100 #### [facility] [address] [place], [address] Cholesterol in LDL [Mass/Vol] 151 mg/dL Normal [facility] Comment on above: Result Comment: Bord fdvaad=568-208 mg/dL Higher Mhbs=314 mg/dL or greater Performed By: #### L 100.0100, L500.4050, L500.4100 #### [facility] [address] [place], [address] Cholesterol in VLDL [Mass/Vol] 30 mg/dL Normal 5-40 [facility] Comment on above: Performed By: #### L 100.0100, L500.4050, L500.4100 #### [facility] [address] [place], [address] Triglyceride [Mass/Vol] 149 mg/dL Normal [facility] Comment on above: Result Comment: The drugs N-Acetylcysteine and Metamizole may falsely depress this assay. Normal range: <150 mg/dL Borderline High: 150-199 mg/dL High: 200-499 mg/dL Very High: >500 mg/dL Performed By: #### L 100.0100, L500.4050, L500.4100 #### [facility] [address] [place], [address] MCV (mean corpuscular volume ) determinationOrdered By: Joy Eid on 08-07-2024 MCV (RBC) [Entitic vol] 85.7 fL 81-99 [facility] Mean corpuscular hemoglobin (MCH) determinationOrdered By: Joy Eid on 08-07-2024 MCH (RBC) [Entitic mass] 29.2 pg 27.0-32.0 [facility] Mean corpuscular hemoglobin concentration (MCHC) determinationOrdered By: Joy Eid on 08-07-2024 MCHC (RBC) [Mass/Vol] 34.1 g/dL 32-36 [facility] Mean platelet volume determi nationOrdered By: Joy Eid on 08-07-2024 Platelet mean volume (Bld) [Entitic vol] 11.2 fL 6.2-12.0 [facility] Monocyte percentageOrdered B y: Joy Eid on 08-07-2024 Monocytes/100 WBC (Bld) 6.3 % 0-10 [facility] Neutrophil percentageOrdered By: Joy Eid on 08-07-2024 Neutrophils/100 WBC (Bld) 52.9 % 47-70 [facility] Nucleated red blood cell per centageOrdered By: Joy Eid on 08-07-2024 Nucleated RBC/100 WBC (Bld) [Ratio] 0 % 0-5 [facility] Platelet countOrdered By: Peace Eid on 08-07-2024 Platelets (Bld) [#/Vol] 302 10*3/uL 150-450 [facility] Potassium measurement (mass/ volume)Ordered By: Joy Eid on 08-07-2024 Potassium (Unsp spec) [Mass/Vol] 4.0 mmol/L 3.3-5.1 [facility] RBC Auto (Bld) [#/Vol]Ordere d By: Joy Eid on 08-07-2024 RBC (Bld) [#/Vol] 5.38 10*6/uL 4.2-5.4 [facility] Screening total cholesterol/ high density lipoprotein (HDL) cholesterol ratioOrdered By: Joy Eid on 08-07-2024 Cholesterol.total/Cholest dima in HDL [Mass ratio] 4.15 {ratio} [facility] Serum creatinine measurement (mass/volume)Ordered By: Joy Eid on 08-07-2024 Creatinine [Mass/Vol] 0.70 mg/dL 0.70-1.20 [facility] Serum globulin measurementOr dered By: Joy Eid on 08-07-2024 Globulin (S) [Mass/Vol] 3.1 g/dL 2.2-4.2 [facility] Serum glucose measurement (m ass/volume)Ordered By: Joy Eid on 08-07-2024 Glucose [Mass/Vol] 103 mg/dL High 70-99 [facility] Serum or plasma alanine doss otransferase (ALT) measurementOrdered By: Joy Eid on 08-07-2024 ALT [Catalytic activity/Vol] 98 U/L High <35 [facility] Serum or plasma albumin khalida urement (mass/volume)Ordered By: Joy Eid on 08-07-2024 Albumin [Mass/Vol] 4.4 g/dL 3.4-4.8 [facility] Serum or plasma albumin/glob ulin mass ratioOrdered By: Joy Eid on 08-07-2024 Albumin/Globulin [Mass ratio] 1.4 {ratio} 0.9-2.4 [facility] Serum or plasma alkaline aleshia sphatase measurementOrdered By: Joy Eid on 08-07-2024 ALP [Catalytic activity/Vol] 114 U/L High 35-104 [facility] Serum or plasma calcium khalida urement (mass/volume)Ordered By: Joy Eid on 08-07-2024 Calcium [Mass/Vol] 9.6 mg/dL 7.6-11.0 [facility] Serum or plasma cholesterol in HDL measurement (mass/volume)Ordered By: Joy Eid on 08-07-2024 Cholesterol in HDL [Mass/Vol] 57 mg/dL >40 [facility] Comment on above: National Cholesterol Education Program (NCEP) guidelines:<40 mg/dL: Low HDL-cholesterol (major risk factor for CHD)>= 60 mg/dL: High HDL-cholesterol (negative risk factor for CHD)HDL-cholesterol is affected by a number of factors, e.g. smoking, exercise, hormones, sex and age. Serum or plasma cholesterol measurement (mass/volume)Ordered By: Joy Eid on 08-07-2024 Cholesterol [Mass/Vol] 238 mg/dL High <201 [facility] Comment on above: Cholesterol level, D esirable <200 mg/dLBorderline high cholesterol 200-239 mg/dLHigh cholesterol >=240 mg/dLRecommendations of the NCEP Adult Treatment Panel for the following risk-cutoff thresholds for the [place] population. Serum or plasma urea nitroge n measurement (mass/volume)Ordered By: Joy Eid on 08-07-2024 Urea nitrogen [Mass/Vol] 14 mg/dL 4-19 [facility] Sodium levelOrdered By: Shabnam Eid on 08-07-2024 Sodium [Moles/Vol] 142 mmol/L 133-145 [facility] Total proteinOrdered By: Anuradha Eid on 08-07-2024 Protein [Mass/Vol] 7.5 g/dL 5.9-8.4 [facility] Triglycerides measurementOrd ered By: Joy Eid on 08-07-2024 Triglyceride [Mass/Vol] 149 mg/dL <199 [facility] Comment on above: The drugs N-Acetylcy steine and Metamizole may falsely depress this assay. Normal range: <150 mg/dLBorderline High: 150-199 mg/dLHigh: 200-499 mg/dLVery High: >500 mg/dL White blood cell (WBC) count Ordered By: Joy Eid on 08-07-2024 WBC (Bld) [#/Vol] 6.5 10*3/uL 4.4-11.0 [facility] Colonoscopy Reporton 025 Colonoscopy Report [facility] Medical Records Department [address] [place] [address] Colonoscopy Report MR#: [id number] Acct: [id number] Name: FLORENCIO REZA SATHYA Rep #: [id number] : 1960 64 From: Deo Schmidt DO PCP: Dr. Joy Eid MD Status[place] [facility] Patient Name: Florencio Reza Procedure Date: 06/05/2024 [...] for surveillance. Procedure Code(s): --- Professional --- 86691, Colonoscopy, flexible; with removal of tumor(s), polyp(s), or other lesion(s) by snare technique CPT copyright 2021 [employer] [employer]. All rights reserved. The codes documented in this report are preliminary and upon tire mold tester review may be revised to meet current compliance requirements. Deo Schmidt DO 06/05/2024 11:16:03 AM This report has been signed electronically. Number of Addenda: 0 Note Initiated On: 06/05/2024 10:36 AM 06/05/24 1116 Date Deo Schmidt DO Cosigner Signature: Date (if indicated) CC: Dr. Joy Eid MD; Deo Schmidt DO Date Dictated: 06/05/24 1036 Date Transcribed: Senior International Tax Manager: MANUELA Signed [facility] MR/CON.PCM.Analy 06-05-2024 MR/CON.PCM.[facility] Medical Records Department [address] [place] [address] Consultation - GI 06/05/24 1007 MR#: [id number] Acct: [id number] Name: FLORENCIO REZA SATHYA Rep #: [id number] : 1960 64 From: Deo Schmidt DO PCP: Dr. Joy Eid MD [facility] Location: [place] [address] HPI Consult Data Date of Consult: 06/05/24 [...] Overall she is in very good health. 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 Joy Eid MD Signed [facility] MR/POSTOP.ANE 06-05-2024 MR/POSTOP.[facility] Medical Records Department [address] [facility] [place] [address] Anesthesia Postop Eval I 06/05/24 1039 MR#: [id number] Acct: [id number] Name: FLORENCIO REZA SATHYA Rep #: [id number] : 1960 64 From: Haider Muhammad CRNA PCP: Dr. Joy Eid MD Status:REG SDC Y Race: C Location: [place] [address] Anesthesia: Postop Eval I Current Vital Signs [...] Muhammad CRNA Cosigner Signature: Date CC: Signed [facility] MR/PWQMRKXR1ea 06-05-2024 MR/POSTOPAN2 [facility] Medical Records Department [address] [place] [address] Anesthesia Postop Eval II 06/05/24 1415 MR#: [id number] Acct: [id number] Name: FLORENCIO REZA Rep #: [id number] : 1960 64 From: Kamla Salas PCP: Dr. Joy Eid MD Status:DEP [facility] [place] Race: C Location: [place] Anesthesia Postop Eval I Sum Postop Eval Completion status Anesthesia document: Postop Eval 1 completed: Yes Anesthesia Postop Eval I Summary Anesthesia Postop Eval I Summary: Anesthesia Postop Eval I: Assessment Summary Airway patent Yes 06/05/24 11:16 ESOL TEACHER ASSISTANT.PKEL Spontaneous unlabored Yes 06/05/24 11:16 ESOL TEACHER ASSISTANT.PKEL respirations Mental status Asleep 06/05/24 11:16 ESOL TEACHER ASSISTANT.PKEL nausea No 06/05/24 11:16 ESOL TEACHER ASSISTANT.PKEL Vomiting No 06/05/24 11:16 ESOL TEACHER ASSISTANT.PKEL Anesthesia Postop Eval I: Fluid Summary Crystalloid volume administer 30 06/05/24 11:16 ESOL TEACHER ASSISTANT.PKEL (ml) Colloids volume administered ( ml) Blood Product volume administered (ml) Total IV fluid infused 30 06/05/24 11:16 ESOL TEACHER ASSISTANT.PKEL Anesthesia Postop Eval I: Summary Notes Anesthesia Complication No 06/05/24 11:16 ESOL TEACHER ASSISTANT.PKEL Anesthesia Complication Comment: Post-operative progress note Anesthesia: Postop Eval II Evaluation Mental status: Awake Pain Level: 0 nausea: No Vomiting: No 06/05/24 1415 Date Kamla Eason Signature: Date CC: Signed Normal [facility] Surgery Specimen Level Gutierrez 06-05-2024 Surgery Specimen Level IV ----- Patient Age/Sex Location Account Attending Physician FLORENCIO REZA 64/ EN [id number] Deo Schmidt DO Specimen: [id number] Received: 06/05/24 Status: MARILU Latham Num: [id number] Spec Type: COLON BX Subm Dr: Deo [...] specimen is totally submitted in one cassette. / 06/05/2024 CPT:92262 , TC:4 Patient Age/Sex Location Account Attending Physician FLORENCIO REZA 64/F EN [id number] Deo Schmidt DO Signed (signatur e on file) Dr. Vidal He MD 06/14/24 4825 [facility] Comment on above: Performed By: #### P SUIV #### [facility] Laboratory [address] [place], [place], [id number] Absolute lymphocyte countOrd ered By: Adina Chaunger on 06-16-2022 Lymphocytes Auto (Unsp spec) [#/Vol] 2.59 10*3/uL 0.83-4.51 [facility] Basophil percentageOrdered B y: Adina Chaunger on 06-16-2022 Basophils/100 WBC (Bld) 0.9 % 0-1 [facility] Bilirubin [Mass/Vol] 0.60 mg/dL 0.20-1.00 [facility] Comment on above: For patients on eltr ombopag therapy, use of Dimension [place] TBIL is not recommended. Chloride [Moles/Vol] 105 mmol/L 98-107 [facility] Cholesterol [Mass/Vol] 172 mg/dL <200 [facility] Comment on above: <200 mg/dL Desirable 200-240 mg/dL Borderline >240 mg/dL High Risk Eosinophils/100 WBC (Bld) 3.5 % 0-5 [facility] Glucose [Mass/Vol] 99 mg/dL 74-106 [facility] Neutrophils (Bld) [#/Vol] 3.2 10*3/uL 2.0-7.7 [facility] Neutrophils/100 WBC (Bld) 49.0 % 47-70 [facility] Potassium [Moles/Vol] 3.8 mmol/L 3.5-5.1 [facility] Protein [Mass/Vol] 7.6 g/dL 6.4-8.2 [facility] Sodium [Moles/Vol] 141 mmol/L 136-145 [facility] Triglyceride [Mass/Vol] 137 mg/dL <199 [facility] Comment on above: The drugs N-Acetylcy steine and Metamizole may falsely depress this assay.Serum Triglycerides Reference Interval Normal <150 mg/dL Borderline high 150 - 199 mg/dL High 200 - 499 mg/dL Very High > or = 500 mg/dL WBC (Bld) [#/Vol] 6.5 10*3/uL 4.4-11.0 [facility] Blood erythrocytes count (nu mber/volume)Ordered By: Adina Lee on 06-16-2022 RBC (Bld) [#/Vol] 5.26 10*6/uL 4.2-5.4 [facility] Blood hemoglobin measurement (mass/volume)Ordered By: Adina Lee on 06-16-2022 Hemoglobin (Bld) [Mass/Vol] 15.1 g/dL 12.0-15.0 [facility] Blood lymphocytes/100 leukoc ytesOrdered By: Adina Lee on 06-16-2022 Lymphocytes/100 WBC (Bld) 39.8 % 19-41 [facility] Blood monocytes/100 leukocyt esOrdered By: Adina Lee on 06-16-2022 Monocytes/100 WBC (Bld) 6.6 % 0-10 [facility] Blood platelet mean volumeOr dered By: Adina Lee on 06-16-2022 Platelet mean volume (Bld) [Entitic vol] 10.9 fL 6.2-12.0 [facility] Determination of erythrocyte mean corpuscular volume (MCV)Ordered By: Adina Lee on 06-16-2022 MCV (RBC) [Entitic vol] 87.5 fL 81-99 [facility] Hematocrit Auto (Bld) [Volum e fraction]Ordered By: Adina Lee on 06-16-2022 Hematocrit (Bld) [Volume fraction] 46.0 % 37-47 [facility] Laboratory - Chemistry and C hemistry - challengeOrdered By: Adina Lee on 06-16-2022 ALP [Catalytic activity/Vol] 109 U/L 45-117 [facility] ALT [Catalytic activity/Vol] 86 U/L 13-56 [facility] CO2 [Moles/Vol] 30.0 mmol/L 21.0-32.0 [facility] Globulin (S) [Mass/Vol] 3.7 g/dL 2.2-4.2 [facility] Urea nitrogen/Creatinine [Mass ratio] 17.0 mg/mg 10-20 [facility] - Hematology and Cell countsOrdered By: Adina Lee on 06-16-2022 Erythrocyte distribution width (RBC) [Entitic vol] 39.9 fL 35.1-43.9 [facility] Erythrocyte distribution width (RBC) [Ratio] 12.3 % 11.6-14.6 [facility] Immature granulocytes/100 WBC (Bld) 0.200 % 0.0-0.9 [facility] Comment on above: IG% - Immature Granu locytes (promyelocytes, myelocytes and metamyelocytes) > 1% indicates that a LEFT SHIFT is Present. MCH (RBC) [Entitic mass] 28.7 pg 27.0-32.0 [facility] Nucleated RBC/100 WBC (Bld) [Ratio] 0 % 0-5 [facility] MCHC Auto (RBC) [Mass/Vol]Or dered By: Adina Lee on 06-16-2022 MCHC (RBC) [Mass/Vol] 32.8 g/dL 32-36 [facility] No Panel InformationOrdered By: Adina Lee on 06-16-2022 Estimated GFR (MDRD) Amer 109 mL/min >60 [facility] Comment on above: GFR Calc Estimated GFR (MDRD) Non-Af Amer 90 mL/min >60 [facility] Comment on above: Non- GFR Calc Platelets bldOrdered By: Ghassan Lee on 06-16-2022 Platelets (Bld) [#/Vol] 270 10*3/uL 150-450 [facility] Serum or plasma albumin khalida urement (mass/volume)Ordered By: Adina Lee on 06-16-2022 Albumin [Mass/Vol] 3.9 g/dL 3.2-5.0 [facility] Serum or plasma albumin/glob ulin mass ratioOrdered By: Adina Lee on 06-16-2022 Albumin/Globulin [Mass ratio] 1.1 {ratio} 0.9-2.4 [facility] Serum or plasma calcium khalida urement (mass/volume)Ordered By: Adina Lee on 06-16-2022 Calcium [Mass/Vol] 9.3 mg/dL 8.5-10.1 [facility] Serum or plasma cholesterol in HDL measurement (mass/volume)Ordered By: Adina Lee on 06-16-2022 Cholesterol in HDL [Mass/Vol] 58 mg/dL >40 [facility] Comment on above: The drugs N-Acetylcy steine and Metamizole may falsely depress this assay. Reference Range HDL <40 mg/dL Low HDL Cholesterol HDL >or= 60 mg/dL High HDL Cholesterol Serum or plasma cholesterol in VLDL measurement (mass/volume)Ordered By: Adina Lee on 06-16-2022 Cholesterol in VLDL [Mass/Vol] 27 mg/dL 5-40 [facility] Serum or plasma creatinine m easurement (mass/volume)Ordered By: Adina Lee on 06-16-2022 Creatinine [Mass/Vol] 0.70 mg/dL 0.55-1.02 [facility] Comment on above: The validity of the calculated GFR & GFRAA in patients over 70 years has not been determined. Clinical correlation is essential. Serum or plasma low density lipoprotein (LDL) cholesterol measurement (mass/volume)Ordered By: Adina Lee on 06-16-2022 Cholesterol in LDL [Mass/Vol] 87 mg/dL 0-130 [facility] Serum or plasma urea nitroge n measurement (mass/volume)Ordered By: Adina Lee on 06-16-2022 Urea nitrogen [Mass/Vol] 12 mg/dL 7-18 [facility] Thin prep Papanicolaou smear with manual screeningOrdered By: Adina Lee on 06-16-2022 Thin prep Papanicolaou smear with manual screening 37 U/L 15-37 [facility] Thin prep Papanicolaou smear with manual screening 6 5-15 [facility] Thin prep Papanicolaou smear with manual screening 29.2 mg/L NO RANGE EST. [facility] Vital Signs Date Time Vital Sign Value Performing Clinician Faci lity 10-15-2024 09:30-0400 Body height 165.1 cm Joy Eid MD Work Phone: [facility] 10-15-2024 09:27-0400 Body mass index (BMI) [Ratio] 27.4 kg/m2 Joy Eid MD Work Phone: [facility] 10-15-2024 09:27-0400 Body weight 74.89 kg Joy Eid MD Work Phone: [facility] 10-15-2024 09:27-0400 Diastolic blood pressure 82 mm[Hg] Joy Eid MD Work Phone: [facility] 10-15-2024 09:27-0400 Systolic blood pressure 136 mm[Hg] Joy Eid MD Work Phone: [facility] 09-12-2024 08:10-0400 Body height 165.1 cm Joy Eid MD Work Phone: [facility] 09-12-2024 08:06-0400 Body mass index (BMI) [Ratio] 27.8 kg/m2 Joy Eid MD Work Phone: [facility] 09-12-2024 08:06-0400 Body weight 75.97 kg Joy Eid MD Work Phone: [facility] 09-12-2024 08:06-0400 Diastolic blood pressure 84 mm[Hg] Joy Eid MD Work Phone: [facility] 09-12-2024 08:06-0400 Systolic blood pressure 132 mm[Hg] Joy Eid MD Work Phone: [facility] 06-05-2024 11:25-0400 Body temperature 97 [degF] Sarah Derek ELECTRICIAN APPRENTICE [employer]HOU[employer] Work Phone: [facility] 06-05-2024 11:25-0400 Diastolic blood pressure 74 mm[Hg] Sarah Antioch ELECTRICIAN APPRENTICE [employer] Work Phone: [facility] 06-05-2024 11:25-0400 Heart rate 78 /min Sarah Derek ELECTRICIAN APPR[employer]ICE [employer] Work Phone: [facility] 06-05-2024 11:25-0400 Respiratory rate 16 /min Sarah Derek ELECTRICIAN APPRENTICE [employer]HOU[employer] Work Phone: [facility] 06-05-2024 11:25-0400 SaO2% (BldA) [Mass fraction] 94 % Sarah Antioch ELECTRICIAN AP[employer]ICE [employer] Work Phone: [facility] 06-05-2024 11:25-0400 Systolic blood pressure 121 mm[Hg] Sarah Derek ELECTRICIAN APPRENTICE [employer] Work Phone: [facility] 06-05-2024 10:17-0400 Body height 165.1 cm Sarah Derek ELECTRICIAN APPRENTICE [employer] Work Phone: [facility] 06-05-2024 10:17-0400 Body mass index (BMI) [Ratio] 29 kg/m2 Sarah Derek ELECTRICIAN [employer]ICE [employer] Work Phone: [facility] 06-05-2024 10:17-0400 Body weight 79 kg Sarah Derek ELECTRICIAN APPRENTICE [employer] Work Phone: [facility] 04-04-2024 11:55-0500 Body mass index (BMI) [Ratio] 28.3 kg/m2 Sarah Derek ELECTRICIAN AP[employer]ICE [employer] Work Phone: [facility] 04-04-2024 11:55-0500 Body weight 77.11 kg Sarah Antioch ELECTRICIAN AP[employer]ICE [employer] Work Phone: [facility] 08-22-2022 08:14-0400 Body height 165.[address] Anurag Shah Work Phone: [facility] 08-22-2022 08:14-0400 Body mass index (BMI) [Ratio] 27.7 kg/m2 Dr. Anurag Shah Work Phone: [facility] 08-22-2022 08:14-0400 Body weight 75.[address] Anurag Shah Work Phone: [facility] 08-22-2022 08:14-0400 Diastolic blood pressure 80 mm[Hg] Dr. Anurag Shah Work Phone: [facility] 08-22-2022 08:14-0400 Systolic blood pressure 168 mm[Hg] Dr. Anurag Shah Work Phone: [facility] 08-17-2021 08:39-0400 Body height 165.[address] Anurag Verdugo Work Phone: [facility] Work Phone: 08-17-2021 08:39-0400 Body mass index (BMI) [Ratio] 27.8 kg/m2 Dr. Anurag Verdugo Work Phone: [facility] Work Phone: 08-17-2021 08:39-0400 Body weight 75.[address] Anurag Vredugo Work Phone: [facility] Work Phone: 08-17-2021 08:39-0400 Diastolic blood pressure 98 mm[Hg] Dr. Anurag Verdugo Work Phone: [facility] Work Phone: 08-17-2021 08:39-0400 Systolic blood pressure 156 mm[Hg] Dr. Anurag Verdugo Work Phone: [facility] Work Phone: Encounters Encounter Date Encounter Type Care Provider Facility Start: 10-15-2024 End: 10-15-2024 ambulatory Joy Eid MD Work Phone: -[facility] Start: 10-15-2024 End: 10-15-2024 Patient encounter procedure Sarah Reed ELECTRICIAN APPRENTICE POWERHOUSE-C -[facility] Work Phone: Start: 09-12-2024 End: 09-12-2024 Patient encounter status Sarah Reed NP-C [facility] Start: 09-12-2024 End: 09-12-2024 ambulatory Joy Eid MD Work Phone: [facility] Work Phone: Start: 09-12-2024 End: 09-12-2024 Patient encounter procedure Sarah Reed ELECTRICIAN APPRENTICE POWERHOUSE-C -[facility] Work Phone: Start: 09-12-2024 End: 09-12-2024 ambulatory Sarah Reed ELECTRICIAN APPRENTICE POWERHOUSE Facility:[facility] Start: 08-07-2024 End: 08-07-2024 ambulatory Joy Eid MD Work Phone: [facility] Work Phone: Start: 08-07-2024 End: 08-07-[address] Joy Eid MD -[facility] Work Phone: Start: 08-07-2024 End: 08-07-2024 ambulatory Joy Eid Facility:[facility] Start: 06-05-2024 End: 06-05-2024 Admission to same day surgery center Deo Roxana DO -Endoscopy Work Phone: Start: 06-05-2024 End: 06-05-2024 ambulatory Sarah Reed ELECTRICIAN APPRENTICE POWERHOUSE-C Work Phone: [facility] Work Phone: Start: 06-05-2024 Non-patient / Non-visit Deo Mishra nd DO -[facility] Start: 04-04-2024 Non-patient / Non-visit Sarah Reed ELECTRICIAN APPRENTICE POWERHOUSE-C Work Phone: -[facility] Work Phone: Start: 04-04-2024 ambulatory Sarha Reed ELECTRICIAN APPRENTICE POWERHOUSE Facil ity:[facility] Start: 08-22-2022 End: 08-22-[address] Anurag Shah Work Phone: [facility] Work Phone: Start: 08-22-2022 End: 08-22-[address] Anurag Shah Work Phone: [facility] Start: 06-16-2022 End: 06-16-2022 ambulatory [facility] Work Phone: Start: 06-16-2022 End: 06-16-2022 Patient encounter procedure [facility] Start: 08-17-2021 End: 08-17-[address] Anurag Verdugo Work Phone: [facility] Procedures Date Procedure Procedure Detail Performing Clinician Start: 09-12-2024 Screening mammography Breana Eid MD Work Phone: Start: 06-05-2024 Colonoscopy Sarahdanielle la ELECTRICIAN APPRENTICE POWERHOUSE-C Work Phone: Start: 08-22-2022 Screening mammography Lanre Shah Work Phone: Start: 08-17-2021 Screening mammography Lanre Verdugo Work Phone: Plan of Treatment Date Care Activity Detail Author Start: 09-12-2024 Screening mammography SCRN MAMM (CAD)W/VIELKA BILAT [facility] Start: 06-05-2024 Colsc flx w/rmvl of tumor polyp lesion snare tq COLONOSCOPY W/LESION REMOVAL [facility] Start: 06-05-2024 Patient discharge [facility] Alanine aminotransfe rase [Enzymatic activity/volume] in Serum or Plasma [facility] Alkaline phosphatase [Enzymatic activity/volume] in Serum or Plasma [facility] Colonoscopy [facility] Patient referral [facility] Work Phone: [facility] Immunizations Immunization Date Immunization Notes Care Provider Ember sanchez 02-11-2019 influenza, injectabl e, quadrivalent, preservative free Sarah Antioch ELECTRICIAN APPRENTICE POWERHOUSE-C Work Phone: [facility] 02-11-2019 influenza, seasonal, injectable Dr. Anurag Verdugo Work Phone: [facility] 01-01-2018 influenza, injectabl e, quadrivalent, preservative free Sarah Derek ELECTRICIAN APPRENTICE POWERHOUSE-C Work Phone: [facility] 01-01-2018 influenza, seasonal, injectable Dr. Anurag Verdugo Work Phone: [facility] 12-14-2016 influenza, injectabl e, quadrivalent, preservative free Sarah Derek ELECTRICIAN APPRENTICE POWERHOUSE-C Work Phone: [facility] 12-14-2016 influenza, seasonal, injectable Dr. Anurag Verdugo Work Phone: [facility] 12-18-2015 influenza, injectabl e, quadrivalent, preservative free Sarah Antioch ELECTRICIAN APPRENTICE POWERHOUSE-C Work Phone: [facility] 12-18-2015 influenza, seasonal, injectable Dr. Anurag Verdugo Work Phone: [facility] 02-02-2015 influenza, injectabl e, quadrivalent, preservative free Sarah Derek ELECTRICIAN APPRENTICE POWERHOUSE-C Work Phone: [facility] 02-02-2015 influenza, seasonal, injectable Dr. Anurag Verdugo Work Phone: [facility] 12-18-2013 influenza, injectabl e, quadrivalent, preservative free Sarah Antioch ELECTRICIAN APPRENTICE POWERHOUSE-C Work Phone: [facility] 12-18-2013 influenza, seasonal, injectable Dr. Anurag Verdugo Work Phone: [facility] Payers Date Payer Category Payer Unknown 2024 Self-pay [id number] 2024 Unknown [id number] Unknown [id number] Unknown [id number] 2.16.8 [id number] Unknown [id number] 2.16.8 [id number] Unknown [id number] 2.16.8 [id number] Unknown [id number] 2.16.8 [id number] Unknown [id number] 2.16.8 [id number] Unknown [id number] 2.16.8 [id number] Unknown [id number] 2.16.8 [id number] Social History Date Type Detail Facility Start: 08-17-2021 End: 08-22-2022 Tobacco smoking status NHIS Unknown if ever smoked [facility] Start: 03-23-2017 Non-smoker [facility] Start: 1960 Sex Assigned At Female [facility] Start: 06-04-2024 Tobacco smoking status NHIS Never smoked tobacco (finding) [facility] Start: 06-05-2024 Sex Female (finding) [facility] NEGATED: Highlighted row Not [facility] Goals Date Patient Goal Desired Activity /State Mental Status Date Assessment Result Facility 06-05-2024 Cognitive function Voice/Name [facility] Work Phone: Clinical Notes 06-05-2024 to 09-12-2024 Note Date & Type Note Facility 09-12-2024 Evaluation note Diagnosis Onset Date Resolution Atrophic vaginitis acute August 192024 8:04am Encounter for routine gynecological examination noneactive September 12, 2024 8:04am [facility] Work Phone: 1(553) 314-619803-19-2025 Evaluation note* Diagnosis Onset Date Resolution Status Admit Date Encounter for screening for malignant neoplasm of colon acute [facility] 2024 9:36am [facility] Work Phone: 1(278) 274-467503-19-2025 Evaluation note* Diagnosis Onset Date Resolution Status Admit Date Encounter for screening for malignant neoplasm of colon deleted Avinash h 2024 9:36am Atrophic vaginitis acute August 192024 8:04am Encounter for routine gynecological examination noneactive August 192024 8:04am [facility] Work Phone: 1(471) 286-988103-19-2025 Consult note [facility] Medical Records Department [address] [place] [address] Anesthesia Postop Eval I 06/05/24 1039 MR#: [id number] Acct: [id number] Name: FLORENCIO REZA SATHYA Rep #:[id number] : 1960 64 From: Haider Muhammad CRNA PCP: Dr. Joy Eid MD Status:REG SD C Y Race: C Location: [place] [address] Anesthesia: Postop Eval I Current Vital Signs [...] Eval 1 completed: Yes 06/05/24 1116 y ESOL TEACHER ASSISTANT> Date _ Haider Muhammad ESOL TEACHER ASSISTANT Cosigner Signature: Date CC: ~ Signed [facility]03-19-2025 Procedure note [facility] Medical Records Department [address] [place] [address] Colonoscopy Report MR#: [id number] Acct: [id number] Name: FLORENCIO REZA SATHYA Rep #:[id number] : 1960 64 From: Deo Schmidt DO [...] for surveillance. Procedure Code(s): --- Professional --- 14769, Colonoscopy, flexible; with removal of tumor(s), polyp(s), or other lesion(s) by snare technique CPT copyright 2021 [employer]. All rights reserved. The codes documented in this report are preliminary and upon tire mold tester review may be revised to meet current compliance requirements. Deo Schmidt DO 06/05/2024 11:16:03 AM This report has been signed electronically. Number of Addenda: 0 Note Initiated On: 06/05/2024 10:36 AM 06/05/24 1116 Date _ Deo Schmidt DO Cosigner Signature: Date (if indicated) CC: Dr. Joy Eid MD; Deo Schmidt DO ~ Date Dictated: 06/05/24 1036 Date Transcribed: Senior International Tax Manager: RF Signed [facility]03-19-2025 Procedure note [facility] Medical Records Department [address] [place] [address] Operative Report - CC Letter MR#: [id number] Acct: [id number] Name: FLORENCIO REZA SATHYA Rep #:[id number] : 1960 64 From: Deo Schmidt DO PCP: Dr. Joy Eid MD Status:REG SD C 06/05/2024 Joy Eid Md Re : Colonoscopy procedure for Florencio Reza Michael Eid This procedure was performed on Wednesday, June [...] ~ Date Dictated: 06/05/24 1036 Date Transcribed: Senior International Tax Manager: RF Signed [facility]03-19-2025 Consult note [facility] Medical Records Department [address] [place] [address] Pre-Anesthesia Evaluation 06/05/24 1031 MR#: [id number] Acct: [id number] Name: FLORENCIO REZA SATHYA Rep #:[id number] : 1960 64 From: Alok Landry MD PCP: Dr. 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: Anesthesia History - hostel manager Hx Hospitalization No 06/04/24 10:43 Any Problems [...] sips of water?: Yes PONV PONV - hostel manager: PONV - hostel manager Female Yes 06/04/24 10:43 HX of Motion [...] 06/05/24 10:17 Respiratory Assessment Respiratory Assessment - hostel manager: Respiratory Tract Infection Hx - hostel manager Hx Respiratory Tract Infection No 06/04/24 10:43 STOP Sleep Apnea STOP Sleep Apnea - hostel manager: STOP Sleep Apnea - hostel manager Hx Hypertension Yes: CONTROLLED WITH MED 06/04/24 [...] Tobacco Use History Tobacco Use History - hostel manager: Tobacco Use History - hostel manager Tobacco Use Smoking Status Never smoker 06/04/24 10:43 Hx Tobacco Use No 06/04/24 10:43 Years Smoking Packs Smoked per Day Smoking Cessation Date was within the last 15 years Hx Smoking Cessation Date Hx Smoking Cessation Counseling Hematologic Medial History Hematologic Hx - hostel manager: Hematologic Medical Hx - manager documentation Hx of Blood Transfusion Yes 06/04/24 10:43 [...] confused, unrespo /Reproduction History /Reproductive History - hostel manager: /Reproductive Hx- hostel manager Hx Now No 06/04/24 10:43 Gestational Age (in weeks): EDC: Hx Hx Para Hx Section SAB No 06/04/24 10:43 PFSH Medical History Wears contact lenses Cancer High [...] 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 06/05/24 1039 bubba BIRD> Date _ Alok Landry MD Cosigner Signature: Date CC: ~ Signed [facility]03-19-2025 Consult note [facility] Medical Records Department [address] [place] [address] Consultation - GI 06/05/24 1007 MR#: [id number] Acct: [id number] Name: FLORENCIO REZA Rep #:[id number] : 1960 64 From: Deo Schmidt DO PCP: Dr. Joy Eid MD Status:REG SD C Location: [place] [address] HPI Consult Data Date of Consult: 06/05/24 [...] Overall she is in very good health. 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 Joy Eid MD~ Signed [facility] Author Deo Schmidt [facility] Note Date/Time June 05, 2024 10: 09am [facility] Medical Records Department [address] [place] [address] Consultation - GI 06/05/24 1007 MR#: [id number] Acct: [id number] Name: FLORENCIO REZA SATHYA Rep #:[id number] : 1960 64 From: Deo Schmidt DO PCP: Dr. Joy Edi MD Status:REG SD C Location: [place] [address] HPI Consult Data Date of Consult: 06/05/24 [...] Overall she is in very good health. 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 06/05/24 1009 <Electronically signed by Deo Friend DO> Cosigner Signature (if applicable): CC: Dr. Joy Eid MD~ Signed [facility] Work Phone: Consult note Author Alok Landry [facility] Note Date/Time June 05, 2024 10: 39am [facility] Medical Records Department [address] [place] [address] Pre-Anesthesia Evaluation 06/05/24 1031 MR#: [id number] Acct: [id number] Name: FLORENCIO REZA SATHYA Rep #:[id number] : 1960 64 From: Alok Landry MD PCP: Dr. 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: Anesthesia History - hostel manager Hx Hospitalization No 06/04/24 10:43 Any Problems [...] sips of water?: Yes PONV PONV - hostel manager: PONV - hostel manager Female Yes 06/04/24 10:43 HX of Motion [...] 06/05/24 10:17 Respiratory Assessment Respiratory Assessment - hostel manager: Respiratory Tract Infection Hx - hostel manager Hx Respiratory Tract Infection No 06/04/24 10:43 STOP Sleep Apnea STOP Sleep Apnea - hostel manager: STOP Sleep Apnea - hostel manager Hx Hypertension Yes: CONTROLLED WITH MED 06/04/24 [...] Tobacco Use History Tobacco Use History - hostel manager: Tobacco Use History - hostel manager Tobacco Use Smoking Status Never smoker 06/04/24 10:43 Hx Tobacco Use No 06/04/24 10:43 Years Smoking Packs Smoked per Day Smoking Cessation Date was within the last 15 years Hx Smoking Cessation Date Hx Smoking Cessation Counseling Hematologic Medial History Hematologic Hx - hostel manager: Hematologic Medical Hx - manager documentation Hx of Blood Transfusion Yes 06/04/24 10:43 [...] confused, unrespo /Reproduction History /Reproductive History - hostel manager: /Reproductive Hx- hostel manager Hx Now No 06/04/24 10:43 Gestational Age (in weeks): EDC: Hx Hx Para Hx Section SAB No 06/04/24 10:43 [facility] Medical History Wears contact lenses Cancer High [...] 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 06/05/24 1039 <Electronically signed by Alok mac MD> Date _ Alok Landry MD Cosigner Signature: Date CC: ~ Signed [facility] Work Phone: Consult note Author Haider Muhammad [facility] Note Date/Time June 05, 2024 11: 16am [facility] Medical Records Department [address] [facility] [place] [address] Anesthesia Postop Eval I 06/05/24 1039 MR#: [id number] Acct: [id number] Name: FLORENCIO REZA SATHYA Rep #:[id number] : 1960 64 From: Haider Muhammad CRNA PCP: Dr. Joy Eid MD Status:REG SD C Y Race: C Location: [place] [address] Anesthesia: Postop Eval I Current Vital Signs [...] by Haider santos CRNA> Date _ Haider Muhammad CRNA Cosigner Signature: Date CC: ~ Signed [facility] Work Phone: Evaluation noteNo assessment information available [facility] Work Phone: Evaluation note* Diagnosis Onset Date Resolution Status Atrophic vaginitis acute White coat syndrome with diagnosis of hypertension acute Encounter for routine gynecological examination noneactive [facility] Work Phone: Reason for referral (narrative)No reason for [facility] Work Phone: Chief Complaint and Reason for Visit Chief Complaint Admit Date SCREENING June 05, 2024 8:0 0am Reason for Visit Admit Date Encounter for screening for malignant ne oplasm of colon June 05, 2024 9:36am Chief Complaint SCREENING Annual (BUS DRIVER/MONITOR) Chief Complaint EORDER Chief Complaint EORDER SCREENING Annual (BUS DRIVER/MONITOR) Reason for Visit Atrophic vaginitis White coat syndrome with diagnosis of hypertension Encounter for routine gynecological examination Chief Complaint Admit Date Amb Documentation April 04, 2024 1 1:48am Chief Complaint Admit Date SCREENING June 05, 2024 8:0 0am SCREENING September 12, 2024 7:21 am Annual (BUS DRIVER/MONITOR) September 12, 2024 8:04 am Reason for Visit Admit Date Encounter for screening for malignant ne oplasm of colon June 05, 2024 9:36am Atrophic vaginitis September 12, 2024 8:04 am Encounter for routine gynecological exam ination September 12, 2024 8:04am Chief Complaint Admit Date SCREENING September 12, 2024 7:21 am Annual (BUS DRIVER/MONITOR) September 12, 2024 8:04 am E ORDER October 15, 2024 8:45 am 4 wk med check October 15, 2024 9:22 am Reason for Visit Admit Date Atrophic vaginitis September 12, 2024 8:04 am Encounter for routine gynecological exam ination September 12, 2024 8:04am Family History Relationship Condition Age at Onset Recorded Date/T maryse mother Hypertension Unknown Hyperlipidemia Unknown Malignant neoplasm of rectum Unknown father Hypertension Unknown Advance Directives Advance Directive Response Recorded Date/ Time Living Will No March 21 9:26am Power of Dry Pan Feeder No March 21 018 9:26am Advance Directive Response Recorded Date/ Time Living Will Yes June 04, 2024 10:43am Power of Dry Pan Feeder Yes June 04 10:43am Name of Medical Power of Dry Pan Feeder HERBIE - HUSBAN D June 04, 2024 10:43am Advance Directive Response Recorded Date/ Time Living Will Yes June 04, 2024 10:43am Do you have a Healthcare Power of Dry Pan Feeder? Yes June 04, 2024 10:43am Name of Medical Power of Dry Pan Feeder HERBIE - HUSBAN D June 04, 2024 [...] Verdugo MD Family Provider Active Adina Lee DO Primary Care Provider Active Team Status: Inactive Member Role Status Dates Adina Lee DO Primary Care Adan ramirez Attending Provider, Referring Provider Active Team Status: Inactive Member Role Status Dates Dr. Anurag Shah MD Referring Provider Active Sarah Reed NP, ELECTRICIAN APPRENTICE POWERHOUSE-C Attending Provider Active Adina Lee DO Primary Care Provider Active Team Status: Inactive Member Role Status Dates Adina Lee DO Primary Care Provider Active Sarah Reed NP, ELECTRICIAN APPRENTICE POWERHOUSE-C Attending Provider, Referring Provider Active Team Status: Active Member Role Status Dates Joy Eid MD Primary Care Provider Active Team Status: Active Member Role Status Dates Sarah Reed NP, ELECTRICIAN APPRENTICE POWERHOUSE-C Primary Care Provider Active Start: April 04, 2024 Lamar Deluna Attending Provider Active Start: Stephan enriquez 2024 Team Status: Inactive Member Role Status [...] August 07, 2024 End: August 07, 2024 Team Status: Active Member Role Status Dates Sarah Reed ELECTRICIAN APPRENTICE POWERHOUSE, ELECTRICIAN APPRENTICE POWERHOUSE-C Attending Provider Active Start: September 12, 2024 Sarah Reed ELECTRICIAN APPRENTICE POWERHOUSE, ELECTRICIAN APPRENTICE POWERHOUSE-C Referring Provider Active Start: September 12, 2024 Joy Eid MD Primary Care Provider Active St art: September 12, 2024 Team Status: Inactive Member Role Status Dates Sarah Reed ELECTRICIAN APPRENTICE POWERHOUSE, ELECTRICIAN APPRENTICE POWERHOUSE-C Attending Provider Active Start: September 12, 2024 End: September 12, 2024 Sarah Reed ELECTRICIAN APPRENTICE POWERHOUSE, ELECTRICIAN APPRENTICE POWERHOUSE-C Referring Provider Active Start: September 12, 2024 End: September 12, 2024 Joy Eid MD Primary Care Provider Active St art: September 12, 2024 End: September 12, 2024 Team Status: Active Member Role/Relationship Status Dates Joy Eid MD Primary Care Provider Active Team Status: Active Member Role/Relationship Status Dates Joy Eid MD Primary Care Provider Active St art: June 05, 2024 Dr. Vidal He MD Attending Provider Active Start: June 05, 2024 Dr. Vidal He MD Referring Provider Active Start: June 05, 2024 Team Status: Inactive Member Role/Relationship Status Dates Dr. Deo Schmidt DO Attending Provider Active Start: June 05, 2024 End: June 05, 2024 Joy Eid MD Primary Care Provider Active St art: June 05, 2024 End: June 05, 2024 Joy Eid MD Referring Provider Active Start : June 05, 2024 End: June 05, 2024 Team Status: Active Member Role/Relationship Status Dates Dr. Deo Schmidt DO Attending Provider Active Start: June 05, 2024 Dr. Deo Schmidt DO Other Provider Active St art: June 05, 2024 Joy Eid MD Primary Care Provider Active St art: June 05, 2024 Joy Eid MD Referring Provider Active Start : June 05, 2024 Team Status: Inactive Member Role/Relationship Status Dates Joy Eid MD Primary Care Provider Active St art: August 07, 2024 End: August 07, 2024 Joy Eid MD Attending Provider Active Start : August 07, 2024 End: August 07, 2024 Joy Eid MD Referring Provider Active Start : August 07, 2024 End: August 07, 2024 Team Status: Inactive Member Role/Relationship Status Dates Sarah Reed ELECTRICIAN APPRENTICE POWERHOUSE, ELECTRICIAN APPRENTICE POWERHOUSE-C Attending Provider Active Start: September 12, 2024 End: September 12, 2024 Sarah Reed ELECTRICIAN APPRENTICE POWERHOUSE, ELECTRICIAN APPRENTICE POWERHOUSE-C Referring Provider Active Start: September 12, 2024 End: September 12, 2024 Joy Eid MD Primary Care Provider Active St art: September 12, 2024 End: September 12, 2024 Team Status: Inactive Member Role/Relationship Status Dates Sarah Reed ELECTRICIAN APPRENTICE POWERHOUSE, ELECTRICIAN APPRENTICE POWERHOUSE-C Attending Provider Active Start: September 12, 2024 End: September 12, 2024 Sarah Reed ELECTRICIAN APPRENTICE POWERHOUSE, ELECTRICIAN APPRENTICE POWERHOUSE-C Referring Provider Active Start: September 12, 2024 End: September 12, 2024 Joy Eid MD Primary Care Provider Active St art: September 12, 2024 End: September 12, 2024 Team Status: Inactive Member Role/Relationship Status Dates Joy Eid MD Primary Care Provider Active St art: August 07, 2024 End: August 07, 2024 Joy Eid MD Attending Provider Active Start : August 07, 2024 End: August 07, 2024 Joy Eid MD Referring Provider Active Start : August 07, 2024 End: August 07, 2024 Team Status: Inactive Member Role/Relationship Status Otto Reed [employer], ELECTRICIAN APPRENTICE [employer]OWERHOU[employer]-C Attending Provider Active Start: September 12, 2024 End: September 12, 2024 Sarah Reed ELECTRICIAN APPRENTICE [employer]SE, ELECTRICIAN APPRENTICE [employer]OWERHOU[employer]-C Referring Provider Active Start: September 12, 2024 End: September 12, 2024 Joy Eid MD Primary Care Provider Active St art: September 12, 2024 End: September 12, 2024 Team Status: Inactive Member Role/Relationship Status Otto Reed ELECTRICIAN APPRENTICE [employer]OWERHOUSE, ELECTRICIAN APPRENTICE [employer]OWERHOUSE-C Attending Provider Active Start: September 12, 2024 End: September 12, 2024 Sarah Reed ELECTRICIAN APPRENTICE [employer]HOUSE, ELECTRICIAN APPRENTICE [employer]OWERHOUSE-C Referring Provider Active Start: September 12, 2024 End: September 12, 2024 Joy Eid MD Primary Care Provider Active St art: September 12, 2024 End: September 12, 2024 Team Status: Active Member Role/Relationship Status Otto Eid MD Primary Care Provider Active St art: October 15, 2024 Joy Eid MD Attending Provider Active Start : October 15, 2024 Joy Eid MD Referring Provider Active Start : October 15, 2024 Team Status: Inactive Member Role/Relationship Status Otto Eid MD Primary Care Provider Active St art: October 15, 2024 End: October 15, 2024 Joy Eid MD Referring Provider Active Start : October 15, 2024 End: October 15, 2024 Sarah Reed ELECTRICIAN [employer]ICE [employer], ELECTRICIAN APPRENTICE [employer]OWERHOUSE-C Attending Provider Active Start: October 15, 2024 End: October 15, 2024 INFORMATION SOURCE (unrecogn ized section and content) DATE CREATED AUTHOR 09/25/2024 [facility] FOR RECORDS PERTAINING TO PATIENTS WHO ARE [...] BE BASED ON THE PRIMARY CLINICAL RECORDS. [facility] [employer] [facility]. provides no warranty or guarantee of the accuracy or completeness of information in this document.
--- OUTSIDE RECORDS SUMMARY | 2024-10-15 12:14 | XMS RPT_ITS | CCD ---
Author Organization [facility] CliniSyva Care Team Providers Care Estimator Project Manager Name Role Phone Dr. Anurag Verdugo Referring Provider [phone] Derek SECURITIES CLERK, SECURITIES CLERK-C Sarah Attending Provider Dr. Anurag Shah Primary Care Provider Dr. Anurag Shah Referring Provider Derek SECURITIES CLERK, SECURITIES CLERK-C Sarah Attending Provider DO Adina Lee Primary Care Provider [phone] Derek SECURITIES CLERK-C, Sarah Primary Care Provider Lamar Deluna Attending Provider Unavailable Dr. Deo Schmidt DO Attending Provider Stanton BIRD, Joy Primary Care Provider Joy Eid MD Referring Provider Friend Dr. Deo ARNDT Other Provider Joy Eid MD Primary Care Provider [phone] Vidal He MD Attending Provider Dr. Vidal He MD Referring Provider Joy Eid MD Attending Provider Derek SECURITIES CLERK-C, Sarah Attending Provider [place] SECURITIES CLERK-C, Sarah Referring Provider Vidal He Attending Unavailable Vidal He Referring Unavailable Joy Eid Primary Care Unavailable [place] SECURITIES CLERK, Sarah Primary Care Unavailable Lamar Deluna Attending Unavailable Stanton Chalashtyn Primary Care Unavailable Joy Eid Referring Unavailable Deo Schmidt Consulting Unavailable Deo Schmidt Attending Unavailable Stanton, Chalon Primary Care Unavailable Stanton, Chalon Referring Unavailable Friend, Deo Attending Unavailable Stanton, Joy Attending Unavailable Stanton, Chalon Referring Unavailable Stanton, Chalon Primary Care Unavailable [place] SECURITIES CLERK, Sarah Attending Unavailable Derek SECURITIES CLERK, Sarah Referring Unavailable Stanton, Chalon Primary Care Unavailable Derek SECURITIES CLERK, Sarah Attending Unavailable [place] SECURITIES CLERK, Sarah Referring Unavailable Stanton, Chalon Primary Care Unavailable Joy Eid MD Primary Care Provider Joy Eid MD Referring Provider Allergies Allergy Classification Reported Allergen(s) Allergy Type Date of Onset Reaction(s) Facility (5 sources) Opioids - Morphine Analogues Propensity to adverse reactions 5 [facility] (1 source) Opioids - Morphine Analogues Drug allergy (disorder) 5 [facility] Repository Medications Current Medications Medication Drug Class(es) [...] By: Kurtis Ruff on 09-17-2024 Study report [facility] Imaging Services [address], [place] [id number] SCRN MAMM (CAD)W/VIELKA BILAT MR#: [id number] Acct: [id number] Name: FLORENCIO REZA SATHYA Rep #: [id number] : 1960 F 64 From: Deep Ruff MD PCP: Dr. Joy Eid MD Status: REG CL I Study:SCRN MAMM (CAD)W/VIELKA BILAT Date of Exa m: 09/12/24 Exam# [id number] Ordering Dr: Sarah Reed NP EXAM: SCRN [...] be mailed to the patient. Reading Location: [id number] CC: SHAYLA Reed; Dr. Joy Eid MD ~ Master Welder: Signed [facility] Seismic Prospecting Observer Helper Office Visit Reporton 09-12-2024 Seismic Prospecting Observer Helper Office Visit Report [facility] [address], [address] [place] [address] OFFICE VISIT Date of Service: 09/12/24 MR#: [id number] Acct: [id number] Name: FLORENCIO REZA SATHYA Rep #: [id number] : 1960 Provider: SHAYLA la Age/Sex: 64/F [place] [facility]: Signed Intake Vital Signs 09/12/23 08:05 06/05/24 10:17 09/12/24 08:06 09/12/24 08:10 Height 5 ft 5 in 5 ft 5 in 5 ft 5 in 5 ft 5 in Weight: 167 lb 8 oz BMI 27.8 BP 132/84 H Intake Visit 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 Normal [facility] SCRN MAMM (CAD)W/VIELKA BILATo n 09-12-2024 SCRN MAMM (CAD)W/VIELKA BILAT [facility] Imaging Services [address] [place], [place] [address] SCRN MAMM (CAD)W/VIELKA BILAT MR#: [id number] Acct: [id number] Name: FLORENCIO REZA Rep #: [id number] : 1960 F 64 From: Kurtis kincaid MD PCP: Dr. Joy Eid MD Status: REG CLI Study: SCRN MAMM (CAD)W/VIELKA BILAT Date of Exam: 08/19 09/11 Exam# [id number] Ordering Dr: Sarah Reed NP SECURITIES CLERK -C EXAM: SCRN MAMM (CAD)W/VIELKA BILAT DATE: [...] be mailed to the patient. Reading Location: [id number] CC: SECURITIES CLERK-Breana Reed; Dr. Joy Eid MD Master Welder: Signed Normal [facility] Absolute lymphocyte countOrd ered By: Joy Eid on 08-07-2024 Lymphocytes Auto (Unsp spec) [#/Vol] 2.46 10*3/uL 0.83-4.51 [facility] Absolute neutrophil countOrd ered By: Joy Eid on 08-07-2024 Neutrophils (Bld) [#/Vol] 3.4 10*3/uL 2.0-7.7 [facility] Anion gap in Serum or Plasma Ordered By: Joy Eid on 08-07-2024 Anion gap [Moles/Vol] 12 mmol/L 5- [facility] Automated lymphocyte count a s percentage of total leukocytesOrdered By: Joy Eid on 08-07-2024 Lymphocytes/100 WBC Auto (Unsp spec) 38.0 % - [facility] BUN/creatinine ratioOrdered By: [facility] Stanton on 08-07-2024 Urea nitrogen/Creatinine [Mass ratio] 20.0 mg/mg 10- [facility] Basophil percentageOrdered B y: Joy Eid on 08-07-2024 Basophils/100 WBC (Bld) 0.9 % 0-1 [facility] Bilirubin, totalOrdered By: [facility] Eid on 08-07-2024 Bilirubin [Mass/Vol] 0.57 mg/dL 0.00-1.30 [facility] CBC W/Diff, Automatedon 07-19 Absolute Lymph 2.46 X10 3/uL Normal 0.83-4.51 [facility] Comment on above: Performed By: #### L 100.0100, L500.4050, L500.4100 #### [facility] [address] [place], [address] Absolute Neut 3.4 X10 3/uL Normal 2.0-7.7 [facility] Comment on above: Performed By: #### L 100.0100, L500.4050, L500.4100 #### [facility] [address] [place], [address] Basophils/100 WBC (Bld) 0.9 % Normal 0-1 [facility] Comment on above: Performed By: #### L 100.0100, L500.4050, L500.4100 #### [facility] [address] [place], [address] Eosinophils/100 WBC (Bld) 1.7 % Normal 0-5 [facility] Comment on above: Performed By: #### L 100.0100, L500.4050, L500.4100 #### [facility] [address] [place], [address] Erythrocyte distribution width (RBC) [Ratio] 12.1 % Normal 11.6-14.6 [facility] Comment on above: Performed By: #### L 100.0100, L500.4050, L500.4100 #### [facility] [address] [place], [address] Hematocrit (Bld) [Volume fraction] 46.1 % Normal 37-47 [facility] Comment on above: Performed By: #### L 100.0100, L500.4050, L500.4100 #### [facility] [address] [place], [address] Hemoglobin (Bld) [Mass/Vol] 15.7 g/dL High 12.0-15.0 [facility] Comment on above: Performed By: #### L 100.0100, L500.4050, L500.4100 #### [facility] [address] [place], [address] IG% 0.200 Normal 0.0-0.9 [facility] Comment on above: Result Comment: IG% - Immature Granulocytes (promyelocytes, myelocytes and metamyelocytes) > 1% indicates that a LEFT SHIFT is Present. Performed By: #### L 100.0100, L500.4050, L500.4100 #### [facility] [address] [place], [address] Lymphocytes/100 WBC (Bld) 38.0 % Normal 19-41 [facility] Comment on above: Performed By: #### L 100.0100, L500.4050, L500.4100 #### [facility] [address] [place], [address] MCH (RBC) [Entitic mass] 29.2 pg Normal 27.0-32.0 [facility] Comment on above: Performed By: #### L 100.0100, L500.4050, L500.4100 #### [facility] [address] [place], [address] MCHC (RBC) [Mass/Vol] 34.1 g/dL Normal 32-36 [facility] Comment on above: Performed By: #### L 100.0100, L500.4050, L500.4100 #### [facility] [address] [place], [address] MCV (RBC) [Entitic vol] 85.7 fL Normal 81-99 [facility] Comment on above: Performed By: #### L 100.0100, L500.4050, L500.4100 #### [facility] [address] [place], [address] Monocytes/100 WBC (Bld) 6.3 % Normal 0-10 [facility] Comment on above: Performed By: #### L 100.0100, L500.4050, L500.4100 #### [facility] [address] [place], [address] Neutrophils/100 WBC (Bld) 52.9 % Normal 47-70 [facility] Comment on above: Performed By: #### L 100.0100, L500.4050, L500.4100 #### [facility] [address] [place], [address] Nucleated RBC (Bld) [#/Vol] 0 10*3/uL Normal 0-5 [facility] Comment on above: Performed By: #### L 100.0100, L500.4050, L500.4100 #### [facility] [address] [place], [address] Platelet mean volume (Bld) [Entitic vol] 11.2 fL Normal 6.2-12.0 [facility] Comment on above: Performed By: #### L 100.0100, L500.4050, L500.4100 #### [facility] [address] [place], [address] Platelets (Bld) [#/Vol] 302 10*3/uL Normal 150-450 [facility] Comment on above: Performed By: #### L 100.0100, L500.4050, L500.4100 #### [facility] [address] [place], [address] RBC (Bld) [#/Vol] 5.38 10*6/uL Normal 4.2-5.4 [facility] Comment on above: Performed By: #### L 100.0100, L500.4050, L500.4100 #### [facility] [address] [place], [address] RDW SD 37.8 fl Normal 35.1-43.9 [facility] Comment on above: Performed By: #### L 100.0100, L500.4050, L500.4100 #### [facility] [address] [place], [address] WBC (Bld) [#/Vol] 6.5 10*3/uL Normal 4.4-11.0 [facility] Comment on above: Performed By: #### L 100.0100, L500.4050, L500.4100 #### [facility] [address] [place], [address] Calculated very low density lipoprotein (VLDL) cholesterol measurementOrdered By: Joy Eid on 08-07-2024 Calculated very low density lipoprotein (VLDL) cholesterol measurement 30 mg/dL 5-40 [facility] Carbon dioxide, total [Moles /volume] in Central venous bloodOrdered By: Joy Eid on 08-07-2024 CO2 [Moles/Vol] 25.4 mmol/L 21.0-32.0 [facility] Chloride assayOrdered By: Peace Eid on 08-07-2024 Chloride [Moles/Vol] 104 mmol/L 98-108 [facility] Comprehensive Metabolic Prof ilon 08-07-2024 Albumin [Mass/Vol] 4.4 g/dL Normal 3.4-4.8 [facility] Comment on above: Performed By: #### L 100.0100, L500.4050, L500.4100 #### [facility] [address] [place], [address] Albumin/Globulin [Mass ratio] 1.4 {ratio} Normal 0.9-2.4 [facility] Comment on above: Performed By: #### L 100.0100, L500.4050, L500.4100 #### [facility] [address] [place], [address] ALK PHOS 114 U/L High 35-104 [facility] Comment on above: Performed By: #### L 100.0100, L500.4050, L500.4100 #### [facility] [address] [place], [address] ALT [Catalytic activity/Vol] 98 U/L High <=34 [facility] Comment on above: Performed By: #### L 100.0100, L500.4050, L500.4100 #### [facility] [address] [place], [address] AST [Catalytic activity/Vol] 60 U/L High <=31 [facility] Comment on above: Performed By: #### L 100.0100, L500.4050, L500.4100 #### [facility] [address] [place], [address] Bilirubin [Mass/Vol] 0.57 mg/dL Normal 0.00-1.30 [facility] Comment on above: Performed By: #### L 100.0100, L500.4050, L500.4100 #### [facility] [address] [place], [address] BUN/CRE 20.0 RATIO Normal 10-20 [facility] Comment on above: Performed By: #### L 100.0100, L500.4050, L500.4100 #### [facility] [address] [place], [address] Calcium [Mass/Vol] 9.6 mg/dL Normal 7.6-11.0 [facility] Comment on above: Performed By: #### L 100.0100, L500.4050, L500.4100 #### [facility] [address] [place], [address] Chloride [Moles/Vol] 104 mmol/L Normal 98-108 [facility] Comment on above: Performed By: #### L 100.0100, L500.4050, L500.4100 #### [facility] [address] [place], [address] CO2 [Moles/Vol] 25.4 mmol/L Normal 21.0-32.0 [facility] Comment on above: Performed By: #### L 100.0100, L500.4050, L500.4100 #### [facility] [address] [place], [address] Creatinine [Mass/Vol] 0.70 mg/dL Normal 0.70-1.20 [facility] Comment on above: Performed By: #### L 100.0100, L500.4050, L500.4100 #### [facility] [address] [place], [address] GAP 12 Normal 5-15 [facility] Comment on above: Performed By: #### L 100.0100, L500.4050, L500.4100 #### [facility] [address] [place], [address] GFR/1.73 sq M.predicted among non-blacks MDRD (S/P/Bld) [Vol rate/Area] 98 mL/min/{1.73_m2} Normal >60 [facility] Comment on above: Result Comment: mL/m in/1.73m2 CKD-EPI Creatinine Equation (2020) Performed By: #### L 100.0100, L500.4050, L500.4100 #### [facility] [address] [place], [address] Globulin (S) [Mass/Vol] 3.1 g/dL Normal 2.2-4.2 [facility] Comment on above: Performed By: #### L 100.0100, L500.4050, L500.4100 #### [facility] [address] [place], [address] Glucose [Mass/Vol] 103 mg/dL High 70-99 [facility] Comment on above: Performed By: #### L 100.0100, L500.4050, L500.4100 #### [facility] [address] [place], [address] Potassium [Moles/Vol] 4.0 mmol/L Normal 3.3-5.1 [facility] Comment on above: Performed By: #### L 100.0100, L500.4050, L500.4100 #### [facility] [address] [place], [address] Sodium [Moles/Vol] 142 mmol/L Normal 133-145 [facility] Comment on above: Performed By: #### L 100.0100, L500.4050, L500.4100 #### [facility] [address] [place], [address] T PROT 7.5 g/dL Normal 5.9-8.4 [facility] Comment on above: Performed By: #### L 100.0100, L500.4050, L500.4100 #### [facility] [address] [place], [address] Urea nitrogen [Mass/Vol] 14 mg/dL Normal 4-19 [facility] Comment on above: Performed By: #### L 100.0100, L500.4050, L500.4100 #### [facility] [address] [place], [address] Eosinophil percentageOrdered By: Joy Eid on 08-07-2024 Eosinophils/100 WBC (Bld) 1.7 % 0-5 [facility] Erythrocyte distribution wid th ratioOrdered By: [facility] Stanton on 08-07-2024 Erythrocyte distribution width (RBC) [Ratio] 12.1 % 11.6-14.6 [facility] Erythrocyte distribution wid th standard deviationOrdered By: [facility] on 08-07-2024 Erythrocyte distribution width (RBC) [Ratio] 37.8 fl 35.1-43.9 [facility] Glomerular filtration rate ( GFR) estimation/1.73 sq m using serum, plasma, or whole bOrdered By: [facility] Stanton on 08-07-2024 GFR/1.73 sq M.predicted among non-blacks MDRD (S/P/Bld) [Vol rate/Area] 98 mL/min/{1.73_m2} >60 [facility] Comment on above: mL/min/1.73m2 CKD-EP I Creatinine Equation (2020) Hematocrit Auto (Bld) [Volum e fraction]Ordered By: Joy Eid on 08-07-2024 Hematocrit (Bld) [Volume fraction] 46.1 % 37-47 [facility] Hemoglobin measurementOrdere d By: Joy Eid on 08-07-2024 Hemoglobin (Bld) [Mass/Vol] 15.7 g/dL High 12.0-15.0 [facility] Immature granulocytes/100 WB C Auto (Bld)Ordered By: Joy Eid on 08-07-2024 Immature granulocytes/100 WBC (Bld) 0.200 % 0.0-0.9 [facility] Comment on above: IG% - Immature Granu locytes (promyelocytes, myelocytes and metamyelocytes) > 1% indicates that a LEFT SHIFT is Present. LDL calc ser/plasOrdered By: Joy Eid on 08-07-2024 Cholesterol in LDL [Mass/Vol] 151 mg/dL [facility] Comment on above: Dcnwlhdinn=460-335 m g/dL & Higher Fyic=645 mg/dL or greater Laboratory - Chemistry and C hemistry - challengeOrdered By: Joy Eid on 08-07-2024 AST [Catalytic activity/Vol] 60 U/L High <32 [facility] Lipid Profileon 08-07-2024 CHOL:HDL 4.15 Normal [facility] Comment on above: Performed By: #### L 100.0100, L500.4050, L500.4100 #### [facility] [address] [place], [address] Cholesterol [Mass/Vol] 238 mg/dL High <=200 [facility] Comment on above: Result Comment: Chol esterol level, Desirable <200 mg/dL Borderline high cholesterol 200-239 mg/dL High cholesterol >=240 mg/dL Recommendations of the NCEP Adult Treatment Panel for the following risk-cutoff thresholds for the [place] population. Performed By: #### L 100.0100, L500.4050, L500.4100 #### [facility] [address] [place], [address] Cholesterol in HDL [Mass/Vol] 57 mg/dL Normal [facility] Comment on above: Result Comment: [place] on[place] Cholesterol Education Program (NCEP) guidelines: <40 mg/dL: Low HDL-cholesterol (major risk factor for CHD) >= 60 mg/dL: High HDL-cholesterol (negative risk factor for CHD) HDL-cholesterol is affected by a number of factors, e.g. smoking, exercise, hormones, sex and age. Performed By: #### L 100.0100, L500.4050, L500.4100 #### [facility] [address] [place], [address] Cholesterol in LDL [Mass/Vol] 151 mg/dL Normal [facility] Comment on above: Result Comment: Bord wxfzfk=952-276 mg/dL Higher Pnwr=138 mg/dL or greater Performed By: #### L 100.0100, L500.4050, L500.4100 #### [facility] [address] [place], [address] Cholesterol in VLDL [Mass/Vol] 30 mg/dL Normal 5-40 [facility] Comment on above: Performed By: #### L 100.0100, L500.4050, L500.4100 #### [facility] [address] [place], [address] Triglyceride [Mass/Vol] 149 mg/dL Normal [facility] Comment on above: Result Comment: The drugs N-Acetylcysteine and Metamizole may falsely depress this assay. Normal range: <150 mg/dL Borderline High: 150-199 mg/dL High: 200-499 mg/dL Very High: >500 mg/dL Performed By: #### L 100.0100, L500.4050, L500.4100 #### [facility] [address] [place], [address] MCV (mean corpuscular volume ) determinationOrdered By: Joy Eid on 08-07-2024 MCV (RBC) [Entitic vol] 85.7 fL 81-99 [facility] Mean corpuscular hemoglobin (MCH) determinationOrdered By: Joy Eid on 08-07-2024 MCH (RBC) [Entitic mass] 29.2 pg 27.0-32.0 [facility] Mean corpuscular hemoglobin concentration (MCHC) determinationOrdered By: Joy Eid on 08-07-2024 MCHC (RBC) [Mass/Vol] 34.1 g/dL 32-36 [facility] Mean platelet volume determi nationOrdered By: Joy Eid on 08-07-2024 Platelet mean volume (Bld) [Entitic vol] 11.2 fL 6.2-12.0 [facility] Monocyte percentageOrdered B y: Joy Eid on 08-07-2024 Monocytes/100 WBC (Bld) 6.3 % 0-10 [facility] Neutrophil percentageOrdered By: Joy Eid on 08-07-2024 Neutrophils/100 WBC (Bld) 52.9 % 47-70 [facility] Nucleated red blood cell per centageOrdered By: Joy Eid on 08-07-2024 Nucleated RBC/100 WBC (Bld) [Ratio] 0 % 0-5 [facility] Platelet countOrdered By: Peace Eid on 08-07-2024 Platelets (Bld) [#/Vol] 302 10*3/uL 150-450 [facility] Potassium measurement (mass/ volume)Ordered By: Joy Eid on 08-07-2024 Potassium (Unsp spec) [Mass/Vol] 4.0 mmol/L 3.3-5.1 [facility] RBC Auto (Bld) [#/Vol]Ordere d By: Joy Eid on 08-07-2024 RBC (Bld) [#/Vol] 5.38 10*6/uL 4.2-5.4 [facility] Screening total cholesterol/ high density lipoprotein (HDL) cholesterol ratioOrdered By: Joy Eid on 08-07-2024 Cholesterol.total/Cholest dima in HDL [Mass ratio] 4.15 {ratio} [facility] Serum creatinine measurement (mass/volume)Ordered By: Joy Eid on 08-07-2024 Creatinine [Mass/Vol] 0.70 mg/dL 0.70-1.20 [facility] Serum globulin measurementOr dered By: Joy Eid on 08-07-2024 Globulin (S) [Mass/Vol] 3.1 g/dL 2.2-4.2 [facility] Serum glucose measurement (m ass/volume)Ordered By: Joy Eid on 08-07-2024 Glucose [Mass/Vol] 103 mg/dL High 70-99 [facility] Serum or plasma alanine doss otransferase (ALT) measurementOrdered By: Joy Eid on 08-07-2024 ALT [Catalytic activity/Vol] 98 U/L High <35 [facility] Serum or plasma albumin khalida urement (mass/volume)Ordered By: Joy Eid on 08-07-2024 Albumin [Mass/Vol] 4.4 g/dL 3.4-4.8 [facility] Serum or plasma albumin/glob ulin mass ratioOrdered By: Joy Eid on 08-07-2024 Albumin/Globulin [Mass ratio] 1.4 {ratio} 0.9-2.4 [facility] Serum or plasma alkaline aleshia sphatase measurementOrdered By: Joy Eid on 08-07-2024 ALP [Catalytic activity/Vol] 114 U/L High 35-104 [facility] Serum or plasma calcium khalida urement (mass/volume)Ordered By: Joy Eid on 08-07-2024 Calcium [Mass/Vol] 9.6 mg/dL 7.6-11.0 [facility] Serum or plasma cholesterol in HDL measurement (mass/volume)Ordered By: Joy Eid on 08-07-2024 Cholesterol in HDL [Mass/Vol] 57 mg/dL >40 [facility] Comment on above: National Cholesterol Education Program (NCEP) guidelines:<40 mg/dL: Low HDL-cholesterol (major risk factor for CHD)>= 60 mg/dL: High HDL-cholesterol (negative risk factor for CHD)HDL-cholesterol is affected by a number of factors, e.g. smoking, exercise, hormones, sex and age. Serum or plasma cholesterol measurement (mass/volume)Ordered By: Joy Eid on 08-07-2024 Cholesterol [Mass/Vol] 238 mg/dL High <201 [facility] Comment on above: Cholesterol level, D esirable <200 mg/dLBorderline high cholesterol 200-239 mg/dLHigh cholesterol >=240 mg/dLRecommendations of the NCEP Adult Treatment Panel for the following risk-cutoff thresholds for the [place] population. Serum or plasma urea nitroge n measurement (mass/volume)Ordered By: Joy Eid on 08-07-2024 Urea nitrogen [Mass/Vol] 14 mg/dL 4-19 [facility] Sodium levelOrdered By: Shabnam Eid on 08-07-2024 Sodium [Moles/Vol] 142 mmol/L 133-145 [facility] Total proteinOrdered By: Anuradha Eid on 08-07-2024 Protein [Mass/Vol] 7.5 g/dL 5.9-8.4 [facility] Triglycerides measurementOrd ered By: Joy Eid on 08-07-2024 Triglyceride [Mass/Vol] 149 mg/dL <199 [facility] Comment on above: The drugs N-Acetylcy steine and Metamizole may falsely depress this assay. Normal range: <150 mg/dLBorderline High: 150-199 mg/dLHigh: 200-499 mg/dLVery High: >500 mg/dL White blood cell (WBC) count Ordered By: Joy Eid on 08-07-2024 WBC (Bld) [#/Vol] 6.5 10*3/uL 4.4-11.0 [facility] Colonoscopy Reporton 025 Colonoscopy Report [facility] Medical Records Department [address] [place] [address] Colonoscopy Report MR#: [id number] Acct: [id number] Name: FLORENCIO REZA SATHYA Rep #: [id number] : 1960 64 From: Deo Schmidt DO PCP: Dr. Joy Eid MD Status:REG [facility] Patient Name: Florencio Reza [...] for surveillance. Procedure Code(s): --- Professional --- 98732, Colonoscopy, flexible; with removal of tumor(s), polyp(s), or other lesion(s) by snare technique CPT copyright 2021 [employer]. All rights reserved. The codes documented in this report are preliminary and upon monorail hooker review may be revised to meet current compliance requirements. Deo Schmidt DO 06/05/2024 11:16:03 AM This report has been signed electronically. Number of Addenda: 0 Note Initiated On: 06/05/2024 10:36 AM 06/05/24 1116 Date Deo Schmidt DO Cosigner Signature: Date (if indicated) CC: Dr. Joy Eid MD; Deo Schmidt DO Date Dictated: 06/05/24 1036 Date Transcribed: Master Welder: MANUELA Signed [facility] MR/CON.PCM.Analy 06-05-2024 MR/CON.PCM.[facility] Medical Records Department [address] [place] [address] Consultation - GI 06/05/24 1007 MR#: [id number] Acct: [id number] Name: FLORENCIO REZA SATHYA Rep #: [id number] : 1960 64 From: Deo Schmidt DO PCP: Dr. Joy Eid MD Status:[facility] Location: [place] [address] HPI Consult Data Date of Consult: 06/05/24 [...] Overall she is in very good health. 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 Joy Eid MD Signed [facility] MR/POSTOP.ANE 06-05-2024 MR/POSTOP.[facility] Medical Records Department [address] [place] [address] Anesthesia Postop Eval I 06/05/24 1039 MR#: [id number] Acct: [id number] Name: FLORENCIO REZA SATHYA Rep #: [id number] : 1960 64 From: Haider Muhammad CRNA PCP: Dr. Joy Eid MD Status:REG SDC Y Race: C Location: [place] [address] Anesthesia: Postop Eval I Current Vital Signs [...] Muhammad CRNA Cosigner Signature: Date CC: Signed [facility] MR/[id number] 06-05-2024 MR/POSTOPAN2 [facility] Medical Records Department [address] [place] [address] Anesthesia Postop Eval II 06/05/24 1415 MR#: [id number] Acct: [id number] Name: FLORENCIO REZA Rep #: [id number] : 1960 64 From: Kamla Salas PCP: Dr. Joy Eid MD Status:DEP [facility] Y Race: C Location: EN Anesthesia Postop Eval I Sum Postop Eval Completion status Anesthesia document: Postop Eval 1 completed: Yes Anesthesia Postop Eval I Summary Anesthesia Postop Eval I Summary: Anesthesia Postop Eval I: Assessment Summary Airway patent Yes 06/05/24 11:16 AGILE COACH.PKEL Spontaneous unlabored Yes 06/05/24 11:16 AGILE COACH.PKEL respirations Mental status Asleep 06/05/24 11:16 AGILE COACH.PKEL nausea No 06/05/24 11:16 AGILE COACH.PKEL Vomiting No 06/05/24 11:16 AGILE COACH.PKEL Anesthesia Postop Eval I: Fluid Summary Crystalloid volume administer 30 06/05/24 11:16 AGILE COACH.PKEL (ml) Colloids volume administered ( ml) Blood Product volume administered (ml) Total IV fluid infused 30 06/05/24 11:16 AGILE COACH.PKEL Anesthesia Postop Eval I: Summary Notes Anesthesia Complication No 06/05/24 11:16 AGILE COACH.PKEL Anesthesia Complication Comment: Post-operative progress note Anesthesia: Postop Eval II Evaluation Mental status: Awake Pain Level: 0 nausea: No Vomiting: No 06/05/24 1415 Date Kamla Eason Signature: Date CC: Signed Normal [facility] Surgery Specimen Level Gutierrez 06-05-2024 Surgery Specimen Level IV ----- Patient Age/Sex Location Account Attending Physician FLORENCIO REZA 64/ EN [id number] Deo Schmidt DO Specimen: [id number] Received: 06/05/24 Status: MARILU Latham Num: [id number] Spec Type: COLON BX Subm Dr: Deo [...] totally submitted in one cassette. / 06/05/2024 CPT:26099 , TC:4 Patient Age/Sex Location Account Attending Physician FLORENCIO REZA 64/F EN [id number] Deo Schmidt DO Signed (signatur e on file) Dr. Vidal He MD 06/14/24 7282 [facility] Comment on above: Performed By: #### P SUIV #### [facility] [address] [place], [place], [id number] Absolute lymphocyte countOrd ered By: Adina Chaunger on 06-16-2022 Lymphocytes Auto (Unsp spec) [#/Vol] 2.59 10*3/uL 0.83-4.51 [facility] Basophil percentageOrdered B y: Adina Chaunger on 06-16-2022 Basophils/100 WBC (Bld) 0.9 % 0-1 [facility] Bilirubin [Mass/Vol] 0.60 mg/dL 0.20-1.00 [facility] Comment on above: For patients on eltr ombopag therapy, use of Dimension [place] TBIL is not recommended. Chloride [Moles/Vol] 105 mmol/L 98-107 [facility] Cholesterol [Mass/Vol] 172 mg/dL <200 [facility] Comment on above: <200 mg/dL Desirable 200-240 mg/dL Borderline >240 mg/dL High Risk Eosinophils/100 WBC (Bld) 3.5 % 0-5 [facility] Glucose [Mass/Vol] 99 mg/dL 74-106 [facility] Neutrophils (Bld) [#/Vol] 3.2 10*3/uL 2.0-7.7 [facility] Neutrophils/100 WBC (Bld) 49.0 % 47-70 [facility] Potassium [Moles/Vol] 3.8 mmol/L 3.5-5.1 [facility] Protein [Mass/Vol] 7.6 g/dL 6.4-8.2 [facility] Sodium [Moles/Vol] 141 mmol/L 136-145 [facility] Triglyceride [Mass/Vol] 137 mg/dL <199 [facility] Comment on above: The drugs N-Acetylcy steine and Metamizole may falsely depress this assay.Serum Triglycerides Reference Interval Normal <150 mg/dL Borderline high 150 - 199 mg/dL High 200 - 499 mg/dL Very High > or = 500 mg/dL WBC (Bld) [#/Vol] 6.5 10*3/uL 4.4-11.0 [facility] Blood erythrocytes count (nu mber/volume)Ordered By: Adina Lee on 06-16-2022 RBC (Bld) [#/Vol] 5.26 10*6/uL 4.2-5.4 [facility] Blood hemoglobin measurement (mass/volume)Ordered By: Adina Lee on 06-16-2022 Hemoglobin (Bld) [Mass/Vol] 15.1 g/dL 12.0-15.0 [facility] Blood lymphocytes/100 leukoc ytesOrdered By: Adina Lee on 06-16-2022 Lymphocytes/100 WBC (Bld) 39.8 % 19-41 [facility] Blood monocytes/100 leukocyt esOrdered By: Adina Lee on 06-16-2022 Monocytes/100 WBC (Bld) 6.6 % 0-10 [facility] Blood platelet mean volumeOr dered By: Adina Lee on 06-16-2022 Platelet mean volume (Bld) [Entitic vol] 10.9 fL 6.2-12.0 [facility] Determination of erythrocyte mean corpuscular volume (MCV)Ordered By: Adina Lee on 06-16-2022 MCV (RBC) [Entitic vol] 87.5 fL 81-99 [facility] Hematocrit Auto (Bld) [Volum e fraction]Ordered By: Adina Lee on 06-16-2022 Hematocrit (Bld) [Volume fraction] 46.0 % 37-47 [facility] - Chemistry and C hemistry - challengeOrdered By: Adina Lee on 06-16-2022 ALP [Catalytic activity/Vol] 109 U/L 45-117 [facility] ALT [Catalytic activity/Vol] 86 U/L 13-56 [facility] CO2 [Moles/Vol] 30.0 mmol/L 21.0-32.0 [facility] Globulin (S) [Mass/Vol] 3.7 g/dL 2.2-4.2 [facility] Urea nitrogen/Creatinine [Mass ratio] 17.0 mg/mg 10-20 [facility] - Hematology and Cell countsOrdered By: Adina Lee on 06-16-2022 Erythrocyte distribution width (RBC) [Entitic vol] 39.9 fL 35.1-43.9 [facility] Erythrocyte distribution width (RBC) [Ratio] 12.3 % 11.6-14.6 [facility] Immature granulocytes/100 WBC (Bld) 0.200 % 0.0-0.9 [facility] Comment on above: IG% - Immature Granu locytes (promyelocytes, myelocytes and metamyelocytes) > 1% indicates that a LEFT SHIFT is Present. MCH (RBC) [Entitic mass] 28.7 pg 27.0-32.0 [facility] Nucleated RBC/100 WBC (Bld) [Ratio] 0 % 0-5 [facility] MCHC Auto (RBC) [Mass/Vol]Or dered By: Adina Lee on 06-16-2022 MCHC (RBC) [Mass/Vol] 32.8 g/dL 32-36 [facility] No Panel InformationOrdered By: Adina Lee on 06-16-2022 Estimated GFR (MDRD) Amer 109 mL/min >60 [facility] Comment on above: GFR Calc Estimated GFR (MDRD) Non-Af Amer 90 mL/min >60 [facility] Comment on above: Non- GFR Calc Platelets bldOrdered By: Ghassan Lee on 06-16-2022 Platelets (Bld) [#/Vol] 270 10*3/uL 150-450 [facility] Serum or plasma albumin khalida urement (mass/volume)Ordered By: Adina Lee on 06-16-2022 Albumin [Mass/Vol] 3.9 g/dL 3.2-5.0 [facility] Serum or plasma albumin/glob ulin mass ratioOrdered By: Adina Lee on 06-16-2022 Albumin/Globulin [Mass ratio] 1.1 {ratio} 0.9-2.4 [facility] Serum or plasma calcium khalida urement (mass/volume)Ordered By: Adina Lee on 06-16-2022 Calcium [Mass/Vol] 9.3 mg/dL 8.5-10.1 [facility] Serum or plasma cholesterol in HDL measurement (mass/volume)Ordered By: Adina Lee on 06-16-2022 Cholesterol in HDL [Mass/Vol] 58 mg/dL >40 [facility] Comment on above: The drugs N-Acetylcy steine and Metamizole may falsely depress this assay. Reference Range HDL <40 mg/dL Low HDL Cholesterol HDL >or= 60 mg/dL High HDL Cholesterol Serum or plasma cholesterol in VLDL measurement (mass/volume)Ordered By: Adina Lee on 06-16-2022 Cholesterol in VLDL [Mass/Vol] 27 mg/dL 5-40 [facility] Serum or plasma creatinine m easurement (mass/volume)Ordered By: Adina Lee on 06-16-2022 Creatinine [Mass/Vol] 0.70 mg/dL 0.55-1.02 [facility] Comment on above: The validity of the calculated GFR & GFRAA in patients over 70 years has not been determined. Clinical correlation is essential. Serum or plasma low density lipoprotein (LDL) cholesterol measurement (mass/volume)Ordered By: Adina Lee on 06-16-2022 Cholesterol in LDL [Mass/Vol] 87 mg/dL 0-130 [facility] Serum or plasma urea nitroge n measurement (mass/volume)Ordered By: Adina Lee on 06-16-2022 Urea nitrogen [Mass/Vol] 12 mg/dL 7-18 [facility] Thin prep Papanicolaou smear with manual screeningOrdered By: Adina Lee on 06-16-2022 Thin prep Papanicolaou smear with manual screening 37 U/L 15-37 [facility] Thin prep Papanicolaou smear with manual screening 6 5-15 [facility] Thin prep Papanicolaou smear with manual screening 29.2 mg/L NO RANGE EST. [facility] Vital Signs Date Time Vital Sign Value Performing Clinician Faci lity 10-15-2024 09:30-0400 Body height 165.1 cm Joy Eid MD Work Phone: [facility] 10-15-2024 09:27-0400 Body mass index (BMI) [Ratio] 27.4 kg/m2 Joy Eid MD Work Phone: [facility] 10-15-2024 09:27-0400 Body weight 74.89 kg Joy Eid MD Work Phone: [facility] 10-15-2024 09:27-0400 Diastolic blood pressure 82 mm[Hg] Joy Eid MD Work Phone: [facility] 10-15-2024 09:27-0400 Systolic blood pressure 136 mm[Hg] Joy Eid MD Work Phone: [facility] 09-12-2024 08:10-0400 Body height 165.1 cm Joy Eid MD Work Phone: [facility] 09-12-2024 08:06-0400 Body mass index (BMI) [Ratio] 27.8 kg/m2 Joy Eid MD Work Phone: [facility] 09-12-2024 08:06-0400 Body weight 75.97 kg Joy Eid MD Work Phone: [facility] 09-12-2024 08:06-0400 Diastolic blood pressure 84 mm[Hg] Joy Eid MD Work Phone: [facility] 09-12-2024 08:06-0400 Systolic blood pressure 132 mm[Hg] Joy Eid MD Work Phone: [facility] 06-05-2024 11:25-0400 Body temperature 97 [degF] Sarah Derek SECURITIES CLERK-C Work Phone: [facility] 06-05-2024 11:25-0400 Diastolic blood pressure 74 mm[Hg] Sarah Hanapepe SECURITIES CLERK-C Work Phone: [facility] 06-05-2024 11:25-0400 Heart rate 78 /min Sarah Derek SECURITIES CLERK-C Work Phone: [facility] 06-05-2024 11:25-0400 Respiratory rate 16 /min Sarah Derek SECURITIES CLERK-C Work Phone: [facility] 06-05-2024 11:25-0400 SaO2% (BldA) [Mass fraction] 94 % Sarah Hanapepe SECURITIES CLERK-C Work Phone: [facility] 06-05-2024 11:25-0400 Systolic blood pressure 121 mm[Hg] Sarah Derek SECURITIES CLERK-C Work Phone: [facility] 06-05-2024 10:17-0400 Body height 165.1 cm Sarah Derek SECURITIES CLERK-C Work Phone: [facility] 06-05-2024 10:17-0400 Body mass index (BMI) [Ratio] 29 kg/m2 Sarah Derek SECURITIES CLERK-C Work Phone: [facility] 06-05-2024 10:17-0400 Body weight 79 kg Sarah Derek SECURITIES CLERK-C Work Phone: [facility] 04-04-2024 11:55-0500 Body mass index (BMI) [Ratio] 28.3 kg/m2 Sarah Derek SECURITIES CLERK-C Work Phone: [facility] 04-04-2024 11:55-0500 Body weight 77.11 kg Sarah Hanapepe SECURITIES CLERK-C Work Phone: [facility] 08-22-2022 08:14-0400 Body height 165.[address] Anurag Shah Work Phone: [facility] 08-22-2022 08:14-0400 Body mass index (BMI) [Ratio] 27.7 kg/m2 Dr. Anurag Shah Work Phone: [facility] 08-22-2022 08:14-0400 Body weight 75.[address] Anurag Shah Work Phone: [facility] 08-22-2022 08:14-0400 Diastolic blood pressure 80 mm[Hg] Dr. Anurag Shah Work Phone: [facility] 08-22-2022 08:14-0400 Systolic blood pressure 168 mm[Hg] Dr. Anurag Shah Work Phone: [facility] 08-17-2021 08:39-0400 Body height 165.[address] Anurga Verdugo Work Phone: [facility] Work Phone: 08-17-2021 08:39-0400 Body mass index (BMI) [Ratio] 27.8 kg/m2 Dr. Anurag Verdugo Work Phone: [facility] Work Phone: 08-17-2021 08:39-0400 Body weight 75.[address] Anurag Verdugo Work Phone: [facility] Work Phone: 08-17-2021 08:39-0400 Diastolic blood pressure 98 mm[Hg] Dr. Anurag Verdugo Work Phone: [facility] Work Phone: 08-17-2021 08:39-0400 Systolic blood pressure 156 mm[Hg] Dr. Anurag Verdugo Work Phone: [facility] Work Phone: Encounters Encounter Date Encounter Type Care Provider Facility Start: 10-15-2024 End: 10-15-2024 ambulatory Joy Eid MD Work Phone: -[facility] Start: 10-15-2024 End: 10-15-2024 Patient encounter procedure Sarah Reed SECURITIES CLERK-C -[facility] Work Phone: Start: 09-12-2024 End: 09-12-2024 Patient encounter status Sarah Reed NP-C [facility] Start: 09-12-2024 End: 09-12-2024 ambulatory Joy Eid MD Work Phone: [facility] Work Phone: Start: 09-12-2024 End: 09-12-2024 Patient encounter procedure Sarah Reed SECURITIES CLERK-C -[facility] Work Phone: Start: 09-12-2024 End: 09-12-2024 ambulatory Sarah Reed SECURITIES CLERK Facility:[facility] Start: 08-07-2024 End: 08-07-2024 ambulatory Joy Eid MD Work Phone: [facility] Work Phone: Start: 08-07-2024 End: 08-07-[address] Joy Eid MD -[facility] Work Phone: Start: 08-07-2024 End: 08-07-2024 ambulatory Joy Eid Facility:[facility] Start: 06-05-2024 End: 06-05-2024 Admission to same day surgery center Deo Roxana DO -Endoscopy Work Phone: Start: 06-05-2024 End: 06-05-2024 ambulatory Sarah Reed SECURITIES CLERK-C Work Phone: [facility] Work Phone: Start: 06-05-2024 Non-patient / Non-visit Deo Mishra nd DO -[facility] Start: 04-04-2024 Non-patient / Non-visit Sarah Reed SECURITIES CLERK-C Work Phone: -[facility] Work Phone: Start: 04-04-2024 ambulatory Sarah Reed SECURITIES CLERK Facil ity:[facility] Start: 08-22-2022 End: 08-22-[address] Anurag Shah Work Phone: [facility] Work Phone: Start: 08-22-2022 End: 08-22-[address] Anurag Shah Work Phone: [facility] Start: 06-16-2022 End: 06-16-2022 ambulatory [facility] Work Phone: Start: 06-16-2022 End: 06-16-2022 Patient encounter procedure [facility] Start: 08-17-2021 End: 08-17-[address] Anurag Verdugo Work Phone: [facility] Procedures Date Procedure Procedure Detail Performing Clinician Start: 09-12-2024 Screening mammography Breana Eid MD Work Phone: Start: 06-05-2024 Colonoscopy Sarahdanielle la SECURITIES CLERK-C Work Phone: Start: 08-22-2022 Screening mammography Lanre Shah Work Phone: Start: 08-17-2021 Screening mammography Lanre Verdugo Work Phone: Plan of Treatment Date Care Activity Detail Author Start: 09-12-2024 Screening mammography SCRN MAMM (CAD)W/VIELKA BILAT [facility] Start: 06-05-2024 Colsc flx w/rmvl of tumor polyp lesion snare tq COLONOSCOPY W/LESION REMOVAL [facility] Start: 06-05-2024 Patient discharge [facility] Alanine aminotransfe rase [Enzymatic activity/volume] in Serum or Plasma [facility] Alkaline phosphatase [Enzymatic activity/volume] in Serum or Plasma [facility] Colonoscopy [facility] Patient referral [facility] Work Phone: [facility] Immunizations Immunization Date Immunization Notes Care Provider Ember sanchez 02-11-2019 influenza, injectabl e, quadrivalent, preservative free Sarah Hanapepe SECURITIES CLERK-C Work Phone: [facility] 02-11-2019 influenza, seasonal, injectable Dr. Anurag Verdugo Work Phone: [facility] 01-01-2018 influenza, injectabl e, quadrivalent, preservative free Sarah Derek SECURITIES CLERK-C Work Phone: [facility] 01-01-2018 influenza, seasonal, injectable Dr. Anurag Verdugo Work Phone: [facility] 12-14-2016 influenza, injectabl e, quadrivalent, preservative free Sarah Derek SECURITIES CLERK-C Work Phone: [facility] 12-14-2016 influenza, seasonal, injectable Dr. Anurag Verdugo Work Phone: [facility] 12-18-2015 influenza, injectabl e, quadrivalent, preservative free Sarah Hanapepe SECURITIES CLERK-C Work Phone: [facility] 12-18-2015 influenza, seasonal, injectable Dr. Anurag Verdugo Work Phone: [facility] 02-02-2015 influenza, injectabl e, quadrivalent, preservative free Sarah Derek SECURITIES CLERK-C Work Phone: [facility] 02-02-2015 influenza, seasonal, injectable Dr. Anurag Verdugo Work Phone: [facility] 12-18-2013 influenza, injectabl e, quadrivalent, preservative free Sarah Hanapepe SECURITIES CLERK-C Work Phone: [facility] 12-18-2013 influenza, seasonal, injectable Dr. Anurag Verdugo Work Phone: [facility] Payers Date Payer Category Payer Unknown 2024 Self-pay [id number] 2024 Unknown [id number] Unknown [id number] Unknown [id number] 2.16.8 [id number] Unknown [id number] 2.16.8 [id number] Unknown [id number] 2.16.8 [id number] Unknown [id number] 2.16.8 [id number] Unknown [id number] 2.16.8 [id number] Unknown [id number] 2.16.8 [id number] Unknown [id number] 2.16.8 [id number] Social History Date Type Detail Facility Start: 08-17-2021 End: 08-22-2022 Tobacco smoking status NHIS Unknown if ever smoked [facility] Start: 03-23-2017 Non-smoker [facility] Start: 1960 Sex Assigned At Female [facility] Start: 06-04-2024 Tobacco smoking status NHIS Never smoked tobacco (finding) [facility] Start: 06-05-2024 Sex Female (finding) [facility] NEGATED: Highlighted row Not [facility] Goals Date Patient Goal Desired Activity /State Mental Status Date Assessment Result Facility 06-05-2024 Cognitive function Voice/Name [facility] Work Phone: Clinical Notes 06-05-2024 to 09-12-2024 Note Date & Type Note Facility 09-12-2024 Evaluation note Diagnosis Onset Date Resolution Atrophic vaginitis acute August 192024 8:04am Encounter for routine gynecological examination noneactive September 12, 2024 8:04am [facility] Work Phone: 1(486) 234-713003-19-2025 Evaluation note* Diagnosis Onset Date Resolution Status Admit Date Encounter for screening for malignant neoplasm of colon acute [facility] 2024 9:36am [facility] Work Phone: 1(265) 161-744503-19-2025 Evaluation note* Diagnosis Onset Date Resolution Status Admit Date Encounter for screening for malignant neoplasm of colon deleted Avinash h 2024 9:36am Atrophic vaginitis acute August 192024 8:04am Encounter for routine gynecological examination noneactive August 192024 8:04am [facility] Work Phone: 1(474) 197-947103-19-2025 Consult note [facility] Medical Records Department [address] [place] [address] Anesthesia Postop Eval I 06/05/24 1039 MR#: [id number] Acct: [id number] Name: FLORENCIO REZA SATHYA Rep #:[id number] : 1960 64 From: Haider Muhammad CRNA PCP: Dr. Joy Eid MD Status:REG SD C Y Race: C Location: [place] [address] Anesthesia: Postop Eval I Current Vital Signs [...] Eval 1 completed: Yes 06/05/24 1116 y AGILE COACH> Date _ Haider Muhammad AGILE COACH Cosigner Signature: Date CC: ~ Signed [facility]03-19-2025 Procedure note [facility] Medical Records Department [address] [place] [address] Colonoscopy Report MR#: [id number] Acct: [id number] Name: FLORENCIO REZA SATHYA Rep #:[id number] : 1960 64 From: Deo Schmidt DO [...] for surveillance. Procedure Code(s): --- Professional --- 43006, Colonoscopy, flexible; with removal of tumor(s), polyp(s), or other lesion(s) by snare technique CPT copyright 2021 [employer]. All rights reserved. The codes documented in this report are preliminary and upon monorail hooker review may be revised to meet current compliance requirements. Deo Schmidt DO 06/05/2024 11:16:03 AM This report has been signed electronically. Number of Addenda: 0 Note Initiated On: 06/05/2024 10:36 AM 06/05/24 1116 Date _ Deo Schmidt DO Cosigner Signature: Date (if indicated) CC: Dr. Joy Eid MD; Deo Schmidt DO ~ Date Dictated: 06/05/24 1036 Date Transcribed: Master Welder: RF Signed [facility]03-19-2025 Procedure note [facility] Medical Records Department [address] [place] [address] Operative Report - CC Letter MR#: [id number] Acct: [id number] Name: FLORENCIO REZA SATHYA Rep #:[id number] : 1960 64 From: Deo Schmidt DO [...] ~ Date Dictated: 06/05/24 1036 Date Transcribed: Master Welder: RF Signed [facility]03-19-2025 Consult note [facility] Medical Records Department [address] [place] [address] Pre-Anesthesia Evaluation 06/05/24 1031 MR#: [id number] Acct: [id number] Name: FLORENCIO REZA SATHYA Rep #:[id number] : 1960 64 From: Alok Landry MD PCP: Dr. Joy Eid MD Status:REG SD C Y Race: C Location: [place] [address] ASA Classification* ASA Classification ASA Classification: 2 [...] Procedure(s): CSCOPE Anesthesia History Anesthesia History - full stack web developer: Anesthesia History - full stack web developer Hx Hospitalization No 06/04/24 10:43 Any Problems [...] sips of water?: Yes PONV PONV - full stack web developer: PONV - full stack web developer Female Yes 06/04/24 10:43 HX of Motion [...] 06/05/24 10:17 Respiratory Assessment Respiratory Assessment - full stack web developer: Respiratory Tract Infection Hx - full stack web developer Hx Respiratory Tract Infection No 06/04/24 10:43 STOP Sleep Apnea STOP Sleep Apnea - full stack web developer: STOP Sleep Apnea - full stack web developer Hx Hypertension Yes: CONTROLLED WITH MED 06/04/24 [...] Tobacco Use History Tobacco Use History - full stack web developer: Tobacco Use History - full stack web developer Tobacco Use Smoking Status Never smoker 06/04/24 10:43 Hx Tobacco Use No 06/04/24 10:43 Years Smoking Packs Smoked per Day Smoking Cessation Date was within the last 15 years Hx Smoking Cessation Date Hx Smoking Cessation Counseling Hematologic Medial History Hematologic Hx - full stack web developer: 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 06/05/24 1039 bubba BIRD> Date _ Alok Landry MD Cosigner Signature: Date CC: ~ Signed [facility]03-19-2025 Consult note [facility] Medical Records Department [address] [place] [address] Consultation - GI 06/05/24 1007 MR#: [id number] Acct: [id number] Name: FLORENCIO REZA Rep #:[id number] : 1960 64 From: Deo Schmidt DO PCP: Dr. Joy Eid MD Status:REG SD C Location: [place] [address] HPI Consult Data Date of Consult: 06/05/24 [...] Overall she is in very good health. 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 Joy Eid MD~ [facility] Deo Schmidt [facility] Note Date/Time June 05, 2024 10: 09am [facility] Medical Records Department [address] [place] [address] Consultation - GI 06/05/24 1007 MR#: [id number] Acct: [id number] Name: FLORENCIO REZA SATHYA Rep #:[id number] : 1960 64 From: Deo Schmidt DO PCP: Dr. Joy Eid MD Status:REG SD C Location: [place] [address] HPI Consult Data Date of Consult: 06/05/24 [...] Overall she is in very good health. 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 Joy Eid MD~ Signed [facility] Work Phone: Consult note Author Alok Landry [facility] Note Date/Time June 05, 2024 10: 39am [facility] Medical Records Department [address] [place] [address] Pre-Anesthesia Evaluation 06/05/24 1031 MR#: [id number] Acct: [id number] Name: FLORENCIO REZA SATHYA Rep #:[id number] : 1960 64 From: Alok Landry MD PCP: Dr. Joy Eid MD Status:REG SD C Y Race: C Location: [place] [address] ASA Classification* ASA Classification ASA Classification: 2 [...] Procedure(s): CSCOPE Anesthesia History Anesthesia History - full stack web developer: Anesthesia History - full stack web developer Hx Hospitalization No 06/04/24 10:43 Any Problems [...] sips of water?: Yes PONV PONV - full stack web developer: PONV - full stack web developer Female Yes 06/04/24 10:43 HX of Motion [...] 06/05/24 10:17 Respiratory Assessment Respiratory Assessment - full stack web developer: Respiratory Tract Infection Hx - full stack web developer Hx Respiratory Tract Infection No 06/04/24 10:43 STOP Sleep Apnea STOP Sleep Apnea - full stack web developer: STOP Sleep Apnea - full stack web developer Hx Hypertension Yes: CONTROLLED WITH MED 06/04/24 [...] Tobacco Use History Tobacco Use History - full stack web developer: Tobacco Use History - full stack web developer Tobacco Use Smoking Status Never smoker 06/04/24 10:43 Hx Tobacco Use No 06/04/24 10:43 Years Smoking Packs Smoked per Day Smoking Cessation Date was within the last 15 years Hx Smoking Cessation Date Hx Smoking Cessation Counseling Hematologic Medial History Hematologic Hx - full stack web developer: Hematologic Medical Hx - fundraising sale representative Hx of Blood Transfusion Yes 06/04/24 10:43 [...] confused, unrespo /Reproduction History /Reproductive History - full stack web developer: /Reproductive Hx- full stack web developer Hx Now No 06/04/24 10:43 Gestational Age (in weeks): EDC: Hx Hx Para Hx Section SAB No 06/04/24 10:43 [facility] Medical History Wears contact lenses Cancer High [...] 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 06/05/24 1039 <Electronically signed by Alok mac MD> Date _ Alok Landry MD Cosigner Signature: Date CC: ~ Signed [facility] Work Phone: Consult note Author Haider Muhammad [facility] Note Date/Time June 05, 2024 11: 16am [facility] Medical Records Department [address] [facility] [place] [address] Anesthesia Postop Eval I 06/05/24 1039 MR#: [id number] Acct: [id number] Name: FLORENCIO REZA SATHYA Rep #:[id number] : 1960 64 From: Haider Muhammad CRNA PCP: Dr. Joy Eid MD Status:REG SD C Y Race: C Location: [place] [address] Anesthesia: Postop Eval I Current Vital Signs [...] CRNA Cosigner Signature: Date CC: ~ Signed [facility] Work Phone: Evaluation noteNo assessment information available [facility] Work Phone: Evaluation note* Diagnosis Onset Date Resolution Status Atrophic vaginitis acute White coat syndrome with diagnosis of hypertension acute Encounter for routine gynecological examination noneactive [facility] Work Phone: Reason for referral (narrative)No reason for referral information [facility] Work Phone: Chief Complaint and Reason for Visit Chief Complaint Admit Date SCREENING June 05, 2024 8:0 0am Reason for Visit Admit Date Encounter for screening for malignant ne oplasm of colon June 05, 2024 9:36am Chief Complaint SCREENING Annual (STUDY DIRECTOR) Chief Complaint EORDER Chief Complaint EORDER SCREENING Annual (STUDY DIRECTOR) Reason for Visit Atrophic vaginitis White coat syndrome with diagnosis of hypertension Encounter for routine gynecological examination Chief Complaint Admit Date Amb Documentation April 04, 2024 1 1:48am Chief Complaint Admit Date SCREENING June 05, 2024 8:0 0am SCREENING September 12, 2024 7:21 am Annual (STUDY DIRECTOR) September 12, 2024 8:04 am Reason for Visit Admit Date Encounter for screening for malignant ne oplasm of colon June 05, 2024 9:36am Atrophic vaginitis September 12, 2024 8:04 am Encounter for routine gynecological exam ination September 12, 2024 8:04am Chief Complaint Admit Date SCREENING September 12, 2024 7:21 am Annual (STUDY DIRECTOR) September 12, 2024 8:04 am E ORDER [...] Will No March 21 9:26am Power of Forging Die Sinker No March 21 018 9:26am Advance Directive Response Recorded Date/ Time Living Will Yes June 04, 2024 10:43am Power of Forging Die Sinker Yes June 04 10:43am Name of Medical Power of Forging Die Sinker HERBIE - HUSBAN D June 04, 2024 10:43am Advance Directive Response Recorded Date/ Time Living Will Yes June 04, 2024 10:43am Do you have a Healthcare Power of Forging Die Sinker? Yes June 04, 2024 10:43am Name of Medical Power of Forging Die Sinker HERBIE - HUSBAN D June 04, 2024 [...] MD Referring Provider Active Sarah Reed NP, SECURITIES CLERK-C Attending Provider Active Adina Lee DO Primary Care Provider Active Team Status: Inactive Member Role Status Dates Adina Lee DO Primary Care Provider Active Sarah Reed NP, SECURITIES CLERK-C Attending Provider, Referring Provider Active Team Status: Active Member Role Status Dates Joy Eid MD Primary Care Provider Active Team Status: Active Member Role Status Dates Sarah Reed NP, SECURITIES CLERK-C Primary Care Provider Active Start: April 04, [...] Active Member Role Status Dates Sarah Reed SECURITIES CLERK, SECURITIES CLERK-C Attending Provider Active Start: September 12, 2024 Sarah Reed SECURITIES CLERK, SECURITIES CLERK-C Referring Provider Active Start: September 12, 2024 Joy Eid MD Primary Care Provider Active St art: September 12, 2024 Team Status: Inactive Member Role Status Dates Sarah Reed SECURITIES CLERK, SECURITIES CLERK-C Attending Provider Active Start: September 12, 2024 End: September 12, 2024 Sarah Reed SECURITIES CLERK, SECURITIES CLERK-C Referring Provider Active Start: September 12, 2024 [...] Inactive Member Role/Relationship Status Dates Sarah Reed SECURITIES CLERK, SECURITIES CLERK-C Attending Provider Active Start: September 12, 2024 End: September 12, 2024 Sarah Reed SECURITIES CLERK, SECURITIES CLERK-C Referring Provider Active Start: September 12, 2024 End: September 12, 2024 Joy Eid MD Primary Care Provider Active St art: September 12, 2024 End: September 12, 2024 Team Status: Inactive Member Role/Relationship Status Dates Sarah Reed SECURITIES CLERK, SECURITIES CLERK-C Attending Provider Active Start: September 12, 2024 End: September 12, 2024 Sarah Reed SECURITIES CLERK, SECURITIES CLERK-C Referring Provider Active Start: September 12, 2024 [...] Status: Inactive Member Role/Relationship Status Otto Reed SECURITIES CLERK, SECURITIES CLERK-C Attending Provider Active Start: September 12, 2024 End: September 12, 2024 Sarah Reed SECURITIES CLERK, SECURITIES CLERK-C Referring Provider Active Start: September 12, 2024 End: September 12, 2024 Joy Eid MD Primary Care Provider Active St art: September 12, 2024 End: September 12, 2024 Team Status: Inactive Member Role/Relationship Status Otto Reed SECURITIES CLERK, SECURITIES CLERK-C Attending Provider Active Start: September 12, 2024 End: September 12, 2024 Sarah Reed SECURITIES CLERK, SECURITIES CLERK-C Referring Provider Active Start: September 12, 2024 [...] 2024 End: October 15, 2024 Sarah Reed SECURITIES CLERK, SECURITIES CLERK-C Attending Provider Active Start: October 15, 2024 End: October 15, 2024 INFORMATION SOURCE (unrecogn ized section and content) DATE CREATED AUTHOR 09/25/2024 [facility] FOR RECORDS PERTAINING TO PATIENTS WHO [...] BE BASED ON THE PRIMARY CLINICAL RECORDS. [employer] [facility]. provides no warranty or guarantee of the accuracy or completeness of information in this document.
== END | disposition home or self-care (01) ==
LOC: LAB 08:46
PROVIDERS: PCP Family Medicine; Referring Provider Family Medicine; Visit Provider Family Medicine
DX: R74.8 Abnormal levels of other serum enzymes (principal)
CPT/HCPCS: 36415; 84075; 84450; 84460